=== PATIENT | female | born 1960 | race Caucasian/White ===

== ENCOUNTER 2018-07-28 17:20 | Inpatient (IN) | payer OTHER ==
[2018-07-28] MEDS ORDERED: SODIUM CHLORIDE 0.9% 1,000 ML IV STA (17:47)
[2018-07-28] MEDS ORDERED: MORPHINE SULFATE 4 MG/ML SYRINGE IV STA (17:47)
--- NOTE | 2018-07-28 17:52 | ED ---
Abdominal Pain HPI - General Chief Complaint: Abdominal Pain Stated Complaint: LUMP ON STOMACH, ABDOMINAL PAIN Time Seen by Provider: 07/28/18 17:29 Source: patient, RN notes reviewed, old records reviewed Mode of arrival: ambulatory Limitations: no limitations - History of Present Illness Initial Comments: This is a 58-year-old female the ER for evaluation of anterior bowel pain severe. Patient does have history of gynecological surgery, no other history of surgery is also had C-sections and hysterectomy. Patient denies fever, states she developed some anterior abdominal pain positive has been on and off for a month or so ago was worse today. Her bowel movements have an irregular no difficulty with urination no fevers. No nausea vomiting currently. MD Complaint: abdominal pain (Anterior) -: month(s) Location: periumbilical, suprapubic Radiation: suprapubic Migration to: epigastric Severity: moderate Severity scale (1-10): 4 Quality: aching Consistency: constant Improves With: nothing Worsens With: nothing Context: recent surgery/procedure (No surgeries within the last 2 years) Associated Symptoms: denies other symptoms Treatments Prior to Arrival: other - Related Data Home Medications Medication Instructions Recorded Confirmed ALPRAZolam [Xanax] 0.5 mg PO BID PRN 07/28/18 07/28/18 Gabapentin [Neurontin] 400 mg PO TID PRN 07/28/18 07/28/18 HYDROcodone/APAP 5-325MG [[place] 1 tab PO Q6HR PRN 07/28/18 07/28/18 5-325] Ibuprofen [Motrin] 400 mg PO Q6HR PRN 07/28/18 07/28/18 Allergies Allergy/AdvReac Type Severity Reaction Status Date / Time No Known Allergies Allergy Verified 07/28/18 17:40 Review of Systems ROS Statement: Those systems with pertinent positive or pertinent negative responses have been documented in the HPI. ROS Other: All systems not noted in ROS Statement are negative. Past Medical History Past Medical History: No Reported History History of Any Multi-Drug Resistant Organisms: None Reported Past Surgical History: Appendectomy, Section, Hysterectomy Past Psychological History: No Psychological Hx Reported Smoking Status: Never smoker Past Alcohol Use History: None Reported Past Drug Use History: None Reported General Exam Limitations: no limitations General appearance: alert, in no apparent distress, obese Head exam: Present: atraumatic, normocephalic, normal inspection Eye exam: Present: normal appearance, PERRL, EOMI. Absent: scleral icterus, conjunctival injection, periorbital swelling ENT exam: Present: normal exam, mucous membranes moist Neck exam: Present: normal inspection. Absent: tenderness, meningismus, lymphadenopathy Respiratory exam: Present: normal lung sounds bilaterally. Absent: respiratory distress, wheezes, rales, rhonchi, stridor Cardiovascular Exam: Present: regular rate, normal rhythm, normal heart sounds. Absent: systolic murmur, diastolic murmur, rubs, gallop, clicks GI/Abdominal exam: Present: soft, normal bowel sounds. Absent: distended, tenderness, guarding, rebound, rigid Extremities exam: Present: normal inspection, full ROM, normal capillary refill. Absent: tenderness, pedal edema, joint swelling, calf tenderness Back exam: Present: normal inspection Neurological exam: Present: alert, oriented X3, CN II-XII intact Psychiatric exam: Present: normal affect, normal mood Skin exam: Present: warm, dry, intact, normal color. Absent: rash Course Vital Signs 07/28/18 17:24 Temperature 97.7 F Pulse Rate 65 Respiratory 16 Rate Blood Pressure 117/80 O2 Sat by Pulse 98 Oximetry - Reevaluation(s) Reevaluation #1: 07/28/18 18:44 Medical record is reviewed 07/28/18 18:44 Patient has adequate pain control Reevaluation #2: 07/28/18 21:30 pain is controlled Medical Decision Making - Medical Decision Making 58 female the ER for evasive about pain, positive abdominal will admit for surgical evaluation and treatment - Lab Data Result diagrams: 07/28/18 18:23 07/28/18 18:23 Lab Results 07/28/18 07/28/18 07/28/18 Range/Units 18:23 18:23 18:23 WBC 10.0 (3.8-10.6) k/uL RBC 5.18 (3.80-5.40) m/uL Hgb 13.9 (11.4-16.0) gm/dL Hct 42.5 (34.0-46.0) % MCV 82.0 (80.0-100.0) fL MCH 26.9 (25.0-35.0) pg MCHC 32.8 (31.0-37.0) g/dL RDW 14.2 (11.5-15.5) % Plt Count 321 (150-450) k/uL Neutrophils % 52 % Lymphocytes % 39 % Monocytes % 4 % Eosinophils % 3 % Basophils % 1 % Neutrophils # 5.2 (1.3-7.7) k/uL Lymphocytes # 3.9 (1.0-4.8) k/uL Monocytes # 0.4 (0-1.0) k/uL Eosinophils # 0.3 (0-0.7) k/uL Basophils # 0.1 (0-0.2) k/uL Sodium 141 (137-145) mmol/L Potassium 4.3 (3.5-5.1) mmol/L Chloride 105 (98-107) mmol/L Carbon Dioxide 28 (22-30) mmol/L Anion Gap 8 mmol/L BUN 27 H (7-17) mg/dL Creatinine 0.80 (0.52-1.04) mg/dL Est GFR (CKD-EPI)AfAm >90 (>60 ml/min/1.73 sqM) Est GFR (CKD-EPI)NonAf 82 (>60 ml/min/1.73 sqM) Glucose 101 H (74-99) mg/dL Plasma Lactic Acid Jose [place] 1.0 (0.7-2.0) mmol/L Calcium 9.5 (8.4-10.2) mg/dL Total Bilirubin 0.2 (0.2-1.3) mg/dL AST 21 (14-36) U/L ALT 20 (9-52) U/L Alkaline Phosphatase 87 (38-126) U/L Total Protein 7.5 (6.3-8.2) g/dL Albumin 4.1 (3.5-5.0) g/dL Amylase 81 (30-110) U/L Lipase 231 (23-300) U/L - Radiology Data Radiology results: report reviewed (CT abdomen and pelvis is positive for abdominal hernia anterior incarceration), image reviewed Disposition Clinical Impression: Abdominal pain, Hernia of anterior abdominal wall Disposition: ADMITTED IP TO THIS [facility] Condition: Good Is patient prescribed a controlled substance at d/c from ED?: No Referrals: Andres Barbosa MD [Primary Care Provider] - 1-2 days
[2018-07-28] MEDS ORDERED: LORazepam 2 MG/ML INJ IV STA (18:30)
[2018-07-28 18:41] LABS: Basophils # (A) 0.1 k/uL (0-0.2); Basophils % (A) 1 %; Eosinophils # (A) 0.3 k/uL (0-0.7); Eosinophils % (A) 3 %; HCT 42.5 % (34.0-46.0); HGB 13.9 gm/dL (11.4-16.0); Lymphocytes # (A) 3.9 k/uL (1.0-4.8); Lymphocytes % (A) 39 %; MCH 26.9 pg (25.0-35.0); MCHC 32.8 g/dL (31.0-37.0); Mean Platelet Volume 7.3; Monocytes # (A) 0.4 k/uL (0-1.0); Monocytes % (A) 4 %; Neutrophils # (A) 5.2 k/uL (1.3-7.7); Neutrophils % (A) 52 %; Platelet Count 321 k/uL (150-450); RBC 5.18 m/uL (3.80-5.40); RDW 14.2 % (11.5-15.5)
[2018-07-28 19:00] LABS: ALT 20 U/L (9-52); AST 21 U/L (14-36); Albumin 4.1 g/dL (3.5-5.0); Alkaline Phosphatase 87 U/L (38-126); Amylase 81 U/L (30-110); Anion Gap 8 mmol/L; Blood Urea Nitrogen 27 mg/dL (7-17); Calcium 9.5 mg/dL (8.4-10.2); Carbon Dioxide 28 mmol/L (22-30); Chloride 105 mmol/L (98-107); Glucose 101 mg/dL (74-99); Lipase 231 U/L (23-300); Potassium 4.3 mmol/L (3.5-5.1); Sodium 141 mmol/L (137-145); Total Bilirubin 0.2 mg/dL (0.2-1.3); Total Protein 7.5 g/dL (6.3-8.2)
--- NOTE | 2018-07-28 20:30 | CT ---
EXAMINATION TYPE: CT abdomen pelvis wo con DATE OF EXAM: 07/28/2018 COMPARISON: HISTORY: RLQ pain CT DLP: 938.9 mGycm Automated exposure control for dose reduction was used. TECHNIQUE: Helical acquisition of images was performed from the lung bases through the pelvis. FINDINGS: LUNG BASES: No significant abnormality is appreciated. LIVER/GB: No significant abnormality is appreciated. PANCREAS: No significant abnormality is seen. SPLEEN: No significant abnormality is seen. ADRENALS: No significant abnormality is seen. KIDNEYS: No significant abnormality is seen. PERITONEAL CAVITY: There is no pneumoperitoneum or fluid within the peritoneal cavity. RETROPERITONEAL ADENOPATHY: None visualized REPRODUCTIVE ORGANS: No significant abnormality is seen URINARY BLADDER: No significant abnormality is seen. PELVIC ADENOPATHY: None visualized. OSSEOUS STRUCTURES: No significant abnormality is seen. BOWEL: No significant abnormality is seen. ANTERIOR ABDOMINAL WALL: There is a complex adipose-soft tissue mass extending from an intraabdominal position anteriorly into the subcutaneous position. This mass courses through the anterior abdominal wall at the midline through a 3 cm diameter opening. The greatest dimensions of the mass are 12 cm A P by 10 cm transverse by 7 cm craniocaudal. The soft tissue component is nodular and groundglass. The mass appears to originate from the lower omentum. Differential considerations include entities such as neoplasm, complex hematoma, complex fat necrosis. There are no associated bowel loops. No associat ed adenopathy. IMPRESSION: LOWER OMENTAL COMPLEX FATTY MASS.
[2018-07-28] MEDS ORDERED: MORPHINE SULFATE 4 MG/ML SYRINGE IVP PRN (21:31)
--- NOTE | 2018-07-29 08:02 | P.PN ---
Progress Note - Text Progress Note Date: 07/29/18 The patient will be scheduled for repair of her incarcerated ventral hernia today.
[2018-07-29] MEDS ORDERED: MORPHINE SULFATE 2 MG/ML SYRINGE IVP PRN (10:33)
[2018-07-29] MEDS: PANTOPRAZOLE 40 MG/10 ML VIAL IVP SCH (10:49)
[2018-07-29] MEDS: LACTATED RINGERS 1,000 ML IV SCH ×2 (10:49→16:21)
--- NOTE | 2018-07-29 10:49 | P.GSHP ---
History of Present Illness H&P Date: 07/29/18 Chief Complaint: Abdominal pain 58-year-old female presented on the day of admission to the emergency room to be evaluated for chief complaint of developing intractable lower abdominal pain worse with activity onset several months. Stated there was no nausea no vomiting. No fever chills. 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 Patient states does have chronic pain does take [place] when necessary as needed in the emergency room a CAT scan of the abdomen to evaluate the abdominal pain without contrast was obtained. Reviewing the report lower omental complex fatty mass. Report indicates the mass courses through the anterior abdominal wall at the mid-level through a 3 cm diameter opening the greatest dimension of the mass are 12 x 10 transverse. Differential diagnosis consider including entities such as a neoplasm, complex hematoma, or complex fat necrosis White count on admission 10 hemoglobin 13.9 electrolyte within normal limits alkaline phosphate 87 Patient will be scheduled today for an open repair of incarcerated ventral hernia Past surgical history appendectomy open as a teenager greater than 40 years ago , 2 C-sections, hysterectomy. Past medical history neuropathy chronic pain - Review of Systems Comment: Essentially unremarkable except as mentioned in the present illness Past Medical History Past Medical History: No Reported History Additional Past Medical History / Comment(s): p History of Any Multi-Drug Resistant Organisms: None Reported Past Surgical History: Appendectomy, Section, Hysterectomy Additional Past Surgical History / Comment(s): past cocaine abuse Past Anesthesia/Blood Transfusion Reactions: No Reported Reaction Past Psychological History: Anxiety Smoking Status: Never smoker Past Alcohol Use History: None Reported Past Drug Use History: None Reported - Past Family History Mother Family Medical History: Congestive Heart Failure (CHF), Diabetes Mellitus, Seizure Disorder Medications and Allergies Home Medications Medication Instructions Recorded Confirmed Type ALPRAZolam [Xanax] 0.5 mg PO BID PRN 07/28/18 07/28/18 History Gabapentin [Neurontin] 400 mg PO TID PRN 07/28/18 07/28/18 History HYDROcodone/APAP 5-325MG [[place] 1 tab PO Q6HR PRN 07/28/18 07/28/18 History 5-325] Ibuprofen [Motrin] 400 mg PO Q6HR PRN 07/28/18 07/28/18 History Allergies Allergy/AdvReac Type Severity Reaction Status Date / Time No Known Allergies Allergy Verified 07/28/18 17:40 Surgical - Exam Vital Signs Temp Pulse Resp BP Pulse Ox 97.7 F 65 16 117/80 98 07/28/18 17:24 07/28/18 17:24 07/28/18 17:24 07/28/18 17:24 07/28/18 17:24 GENERAL APPEARANCE: 58-year-old female patient is alert, oriented, states with movement has been experiencing pain to the lower abdomen VITAL SIGNS: Reviewed HEENT: Head is normocephalic and atraumatic. Pupils are equal and reactive. The nares are patent. Oropharynx is clear without lesions. NECK: Supple without lymphadenopathy. Traches midline. HEART: S1, S2. Regular rate and rhythm. no murmur denying chest pain LUNGS: No crackles or wheezes are heard. adequate air movement bilaterally sets room air 96% ABDOMEN: Soft, not able to palpate abdominal mass positive tenderness with palpitation to the lower abdominal wall suprapubic area nondistended with good bowel sounds. No peritoneal signs. No palpable organomegaly or masses. states had a bowel movement this morning EXTREMITIES: Normal skin color and turgor. No cyanosis, rash, ulceration, clubbing or edema. Radial pedal pulses are 2/4 bilaterally. NEUROLOGICAL: No focal deficits. Strength and sensation are grossly intact. Results - Labs 07/28/18 18:23 07/28/18 18:23 Abnormal Lab Results - Last 24 Hours (Table) 07/28/18 Range/Units 18:23 BUN 27 H (7-17) mg/dL Glucose 101 H (74-99) mg/dL Diabetes panel 07/28/18 Range/Units 18:23 Sodium 141 (137-145) mmol/L Potassium 4.3 (3.5-5.1) mmol/L Chloride 105 (98-107) mmol/L Carbon Dioxide 28 (22-30) mmol/L BUN 27 H (7-17) mg/dL Creatinine 0.80 (0.52-1.04) mg/dL Glucose 101 H (74-99) mg/dL Calcium 9.5 (8.4-10.2) mg/dL AST 21 (14-36) U/L ALT 20 (9-52) U/L Alkaline Phosphatase 87 (38-126) U/L Total Protein 7.5 (6.3-8.2) g/dL Albumin 4.1 (3.5-5.0) g/dL Calcium panel 07/28/18 Range/Units 18:23 Calcium 9.5 (8.4-10.2) mg/dL Albumin 4.1 (3.5-5.0) g/dL Pituitary panel 07/28/18 Range/Units 18:23 Sodium 141 (137-145) mmol/L Potassium 4.3 (3.5-5.1) mmol/L Chloride 105 (98-107) mmol/L Carbon Dioxide 28 (22-30) mmol/L BUN 27 H (7-17) mg/dL Creatinine 0.80 (0.52-1.04) mg/dL Glucose 101 H (74-99) mg/dL Calcium 9.5 (8.4-10.2) mg/dL Adrenal panel 07/28/18 Range/Units 18:23 Sodium 141 (137-145) mmol/L Potassium 4.3 (3.5-5.1) mmol/L Chloride 105 (98-107) mmol/L Carbon Dioxide 28 (22-30) mmol/L BUN 27 H (7-17) mg/dL Creatinine 0.80 (0.52-1.04) mg/dL Glucose 101 H (74-99) mg/dL Calcium 9.5 (8.4-10.2) mg/dL Total Bilirubin 0.2 (0.2-1.3) mg/dL AST 21 (14-36) U/L ALT 20 (9-52) U/L Alkaline Phosphatase 87 (38-126) U/L Total Protein 7.5 (6.3-8.2) g/dL Albumin 4.1 (3.5-5.0) g/dL Assessment and Plan Assessment: Impression Present on admission persistent lower abdominal pain suspect due to incarcerated ventral hernia as evident on a CAT scan of the abdomen and pelvis Obesity BMI 41 Chronic pain Present on admission lower abdominal pain onset for the past several months increased in severity suspect due to incarcerated ventral hernia Plan Pain control Scheduled today for repair incarcerated ventral hernia possible open DVT and GI prophylaxis Keep nothing by mouth for planned surgery IV fluid for hydration Further surgical recommendations pending clinical course The above impression and plan of care have been discussed and directed by signing physician. Lynette Harris nurse practitioner acting as scribe for signing physician.
[2018-07-29] MEDS ORDERED: ePHEDrine SULFATE/0.9% NACL/PF 50 MG/5 ML SYRINGE IV ONE (10:59)
[2018-07-29] MEDS ORDERED: NEOSTIGMINE 1 MG/ML 10 ML VIAL ONE (10:59)
[2018-07-29] MEDS ORDERED: GLYCOPYRROLATE 0.2 MG/ML 2 ML VIAL ONE (10:59)
[2018-07-29] MEDS ORDERED: PHENYLEPHRINE-0.9% NACL SYG 1 MG/10 ML SYRINGE ONE (10:59)
[2018-07-29] MEDS ORDERED: PROPOFOL 10 MG/ML 20 ML VIAL IV ONE (10:59)
[2018-07-29] MEDS ORDERED: SUCCINYLCHOLINE CHLORIDE 100 MG/5 ML SYR IV ONE (10:59)
[2018-07-29] MEDS ORDERED: fentaNYL (PF) 50 MCG/ML 2 ML AMP ONE (10:59)
[2018-07-29] MEDS ORDERED: VECURONIUM 10 MG VIAL IV ONE (10:59)
[2018-07-29] MEDS ORDERED: MIDAZOLAM 2 MG/2 ML VIAL ONE (10:59)
[2018-07-29] MEDS ORDERED: LIDOCAINE 1% INJ 10MG/ML (20 ML MDV) ONE (10:59)
[2018-07-29] MEDS ORDERED: KETOROLAC 30 MG/ML 1 ML VIAL ONE (10:59)
[2018-07-29] MEDS: HEPARIN SODIUM,PORCINE 5,000 UNIT/ML 1 ML VIAL SQ SCH ×2 (15:05→16:28)
[2018-07-29] MEDS ORDERED: IV FLUID CONTINUATION 1,000 ML IV ONE (15:51)
[2018-07-29] MEDS: ONDANSETRON 4 MG/2 ML VIAL IVP ONE ×2 (16:04→18:25)
[2018-07-29] MEDS ORDERED: ceFAZolin IN SWFI 2 GM/20 ML SYRINGE IVP ONE (16:35)
[2018-07-29] MEDS ORDERED: ONDANSETRON 4 MG/2 ML VIAL IVP PRN (17:55)
[2018-07-29] MEDS ORDERED: traMADol 50 MG TAB PO PRN (17:55)
[2018-07-29] MEDS ORDERED: ACETAMINOPHEN TAB 325 MG TAB PO PRN (17:55)
[2018-07-29] MEDS ORDERED: METOCLOPRAMIDE 5 MG/ML 2 ML VIAL IVP PRN (17:55)
[2018-07-29] MEDS ORDERED: LACTATED RINGERS 1,000 ML IV ONE ×2 (17:55→17:59)
[2018-07-29] MEDS ORDERED: NALOXONE 0.4 MG/ML 1 ML VIAL IV PRN (17:55)
--- NOTE | 2018-07-29 18:01 | P.OP ---
Date of Procedure: 07/29/18 Preoperative Diagnosis: Incarcerated incisional hernia Postoperative Diagnosis: Incarcerated incisional hernia Procedure(s) Performed: Open repair of incarcerated incisional hernia Partial omentectomy Anesthesia: NITHIN Surgeon: Anuj Mckenzie Estimated Blood Loss (ml): 10 Pathology: other (Omentum) Condition: stable Disposition: PACU Description of Procedure: The patient's placed on the operative table in the supine position. She received general anesthesia. Her abdomen was prepped and draped in usual sterile fashion. A low midline incision was made and then using a large cautery the subcutaneous tissue divided. The patient had an incarcerated incisional hernia and there was incarcerated omentum within the hernia sac. Hernia sac was then opened. And then the neck of the hernia was opened using cautery. The incarcerated omentum was then transected using the Enseal device. The fascial defect was repaired using 0 Ethibond suture. A KATIE drains placed in subcutaneous space. All Vicryl was used to close the space. The skin was closed shahram. A previena wound system was placed on top of the skin incision. Patient tolerated procedure well was sent to recovery in stable condition.
[2018-07-29] MEDS: HYDROmorphone 1 MG/ML 1 ML SYRINGE IVP ONE ×4 (18:26→18:42)
[2018-07-29] MEDS: KETOROLAC 30 MG/ML 1 ML VIAL IVP SCH ×2 (20:39→20:50)
[2018-07-29] MEDS: DOCUSATE 100 MG CAP PO SCH (21:45)
[2018-07-30] MEDS: HYDROcodone/APAP 5-325MG 1 EACH TAB PO PRN ×3 (03:26→23:48)
[2018-07-30] MEDS: KETOROLAC 30 MG/ML 1 ML VIAL IVP SCH ×4 (06:10→20:40)
[2018-07-30] MEDS: PANTOPRAZOLE 40 MG/10 ML VIAL IVP SCH (08:34)
[2018-07-30] MEDS: DOCUSATE 100 MG CAP PO SCH ×2 (08:34→20:40)
[2018-07-30] MEDS: ENOXAPARIN 40 MG/0.4 ML SYRINGE SQ SCH (08:34)
[2018-07-30] MEDS ORDERED: GABAPENTIN 400 MG CAP PO PRN (08:43)
[2018-07-30] MEDS ORDERED: ALPRAZolam 0.5 MG TAB PO PRN (08:43)
--- NOTE | 2018-07-30 08:46 | P.CONS ---
History of Present Illness - Reason for Consult Consult date: 07/30/18 - Chief Complaint Abdominal pain. - History of Present Illness The patient is here postoperatively for hernia repair. She has not underlying history of opiate dependence with chronic DJD. The patient seems stable today. We are essentially consult assistance with medical management. She is under appropriate postop protocol. No sniffing nausea, vomiting stated. Review of Systems Constitutional: Denies chills, Denies fever Eyes: denies blurred vision, denies pain Ears, nose, mouth and throat: Denies headache, Denies sore throat Cardiovascular: Reports as per HPI Gastrointestinal: Reports abdominal pain, Denies diarrhea, Denies nausea, Denies vomiting Past Medical History Past Medical History: No Reported History Additional Past Medical History / Comment(s): p History of Any Multi-Drug Resistant Organisms: None Reported Past Surgical History: Appendectomy, Section, Hysterectomy Additional Past Surgical History / Comment(s): past cocaine abuse Past Anesthesia/Blood Transfusion Reactions: No Reported Reaction Past Psychological History: Anxiety Smoking Status: Never smoker Past Alcohol Use History: None Reported Past Drug Use History: None Reported - Past Family History Mother Family Medical History: Congestive Heart Failure (CHF), Diabetes Mellitus, Seizure Disorder Medications and Allergies Home Medications Medication Instructions Recorded Confirmed Type ALPRAZolam [Xanax] 0.5 mg PO BID PRN 07/28/18 07/28/18 History Gabapentin [Neurontin] 400 mg PO TID PRN 07/28/18 07/28/18 History HYDROcodone/APAP 5-325MG [[place] 1 tab PO Q6HR PRN 07/28/18 07/28/18 History 5-325] Ibuprofen [Motrin] 400 mg PO Q6HR PRN 07/28/18 07/28/18 History Allergies Allergy/AdvReac Type Severity Reaction Status Date / Time No Known Allergies Allergy Verified 07/28/18 17:40 Physical Exam Vitals: Vital Signs Temp Pulse Pulse Resp BP BP Pulse Ox 07/30/18 05:57 97.5 F L 61 16 106/61 96 07/29/18 23:00 97.6 F 62 16 119/72 97 07/29/18 21:12 54 L 124/79 91 L 07/29/18 20:42 63 129/81 94 L 07/29/18 20:13 71 125/67 94 L 07/29/18 19:57 57 L 133/87 95 07/29/18 19:43 56 L 125/69 94 L 07/29/18 19:27 55 L 127/85 94 L 07/29/18 19:12 97.8 F 50 L 11 L 114/74 95 07/29/18 18:45 62 16 117/71 97 07/29/18 18:30 69 18 130/84 97 07/29/18 18:15 75 18 137/87 97 07/29/18 18:11 97.6 F 68 18 122/65 97 07/29/18 15:56 98.7 F 56 L 18 112/63 96 07/29/18 15:00 97.4 F L 57 L 16 125/72 95 Intake and Output 07/29/18 07/30/18 07/30/18 22:59 06:59 14:59 Intake Total 700 Output Total 50 Balance 650 Intake: IV 700 Output: Estimated Blood Loss 50 Other: Voiding Method Toilet # Voids 2 - Constitutional General appearance: obese - EENT Eyes: EOMI - Neck Neck: no lymphadenopathy - Respiratory Respiratory: bilateral: CTA - Cardiovascular Rhythm: regular Heart sounds: normal: S1, S2 Abnormal Heart Sounds: no S3 Gallop - Gastrointestinal General gastrointestinal: soft, no tenderness - Neurologic Neurologic: CNII-XII intact - Psychiatric Psychiatric: A&O x's 3 Results CBC & Chem 7: 07/28/18 18:23 07/28/18 18:23 Assessment and Plan (1) Hernia of anterior abdominal wall Current Visit: Yes Status: Acute Code(s): K43.9 - VENTRAL HERNIA WITHOUT OBSTRUCTION OR GANGRENE SNOMED Code(s): 959992603 Plan: Slowly increase by mouth intake with medications. Check CBC and CMP in a.m. Dr. Dykes's group will be covering for the weekend starting tomorrow. Anticipate discharge in next 24-48 hours. Time with Patient: Greater than 30
[2018-07-30 09:04] LABS: Basophils % (A) 0 %; Eosinophils # (A) 0.1 k/uL (0-0.7); Eosinophils % (A) 1 %; HCT 39.4 % (34.0-46.0); HGB 12.4 gm/dL (11.4-16.0); Lymphocytes # (A) 2.8 k/uL (1.0-4.8); Lymphocytes % (A) 26 %; MCH 26.2 pg (25.0-35.0); MCHC 31.5 g/dL (31.0-37.0); MCV 83.2 fL (80.0-100.0); Mean Platelet Volume 7.2; Monocytes # (A) 0.5 k/uL (0-1.0); Monocytes % (A) 5 %; Neutrophils # (A) 7.4 k/uL (1.3-7.7); Neutrophils % (A) 68 %; Platelet Count 298 k/uL (150-450); RBC 4.74 m/uL (3.80-5.40); RDW 14.2 % (11.5-15.5); WBC 10.9 k/uL (3.8-10.6)
[2018-07-30 09:13] LABS: Albumin 3.4 g/dL (3.5-5.0); Calcium 8.6 mg/dL (8.4-10.2); Total Bilirubin 0.6 mg/dL (0.2-1.3); Total Protein 6.4 g/dL (6.3-8.2)
--- NOTE | 2018-07-30 10:58 | P.PN ---
Subjective Progress Note Date: 07/30/18 58-year-old seen up ambulating in the hallway. Patient states is passing gas no stool. Pain medication effective for pain control. States is tolerating a diet with no nausea no vomiting. Abdominal binder in place. KATIE drain moderate amount of bloody drainage in the bulb. a prevena wound system in place. Postop July 29 open repair of incarcerated incisional hernia, partial omentectomy Objective - Vital Signs Vital signs: Vital Signs Temp 97.5 F L 07/30/18 05:57 Pulse 61 07/30/18 05:57 Resp 16 07/30/18 05:57 BP 106/61 07/30/18 05:57 Pulse Ox 96 07/30/18 05:57 Intake & Output 07/29/18 07/30/18 07/30/18 18:59 06:59 18:59 Intake Total 700 Output Total 50 Balance 650 Intake: IV 700 Output: Estimated Blood Loss 50 Other: Voiding Method Toilet # Voids 1 2 # Bowel Movements 1 - Exam Physical exam 58-year-old female ambulating in the hallway reports no nausea no vomiting no dizziness lightheadedness no chest pain or shortness of breath Lungs adequate air movement bilaterally on room air Heart S1-S2 audible regular Abdomen abdominal binder in place. Surgical tenderness appropriate. Passing gas no stool urinating no difficulty KATIE drain in place serous bloody drainage noted prevena wound system in place nondistended Extremities no edema - Labs CBC & Chem 7: 07/30/18 07:57 07/30/18 07:57 Labs: Abnormal Lab Results - Last 24 Hours (Table) 07/30/18 07/30/18 Range/Units 07:57 07:57 WBC 10.9 H (3.8-10.6) k/uL BUN 21 H (7-17) mg/dL Albumin 3.4 L (3.5-5.0) g/dL Assessment and Plan Assessment: Impression Present on admission persistent lower abdominal pain suspect due to incarcerated ventral hernia as evident on a CAT scan of the abdomen and pelvis Obesity BMI 41 Chronic pain Present on admission lower abdominal pain onset for the past several months increased in severity suspect due to incarcerated ventral hernia Status post July 29 open repair of incarcerated incisional hernia, partial omentectomy for incarcerated incisional hernia Plan Pain control Continue postop surgical care DVT and GI prophylaxis IV fluid for hydration The above impression and plan of care have been discussed and directed by signing physician. Lynette Harris nurse practitioner acting as scribe for signing physician.
[2018-07-31] MEDS: KETOROLAC 30 MG/ML 1 ML VIAL IVP SCH (05:46)
[2018-07-31 06:39] VITALS: BP 104/50; PULSE 48; RESP 15; TEMP 97.6
[2018-07-31] MEDS: PANTOPRAZOLE 40 MG/10 ML VIAL IVP SCH (09:31)
[2018-07-31] MEDS: DOCUSATE 100 MG CAP PO SCH (09:32)
[2018-07-31] MEDS: ENOXAPARIN 40 MG/0.4 ML SYRINGE SQ SCH (09:32)
[2018-07-31] MEDS: HYDROcodone/APAP 5-325MG 1 EACH TAB PO PRN (09:38)
--- NOTE | 2018-07-31 11:00 | P.DS ---
Providers Date of admission: 07/30/18 14:16 Expected date of discharge: 07/31/18 Attending physician: Anuj Mckenzie Consults: 07/29/18 10:50 Consult Physician Urgent Consulting Provider: Andres Barbosa Consult Reason/Comments: Medical management Do you want consulting provider notified?: Yes Primary care physician: Andres Barbosa Hospital Course: 58-year-old female presented to the emergency room for chief complaint of developing intractable lower abdominal pain worse with activity onset several months prior. Patient stated that she felt nauseated did not vomit no fever chills no change in bowel habits. Patient does have chronic pain and does take [place] as needed at home for chronic lower back pain. In the emergency room a CAT scan of the abdomen was done showed incarcerated ventral hernia. Patient underwent an July 29 an open repair of incarcerated ventral hernia. Provera wound system was placed KATIE drain placed patient did receive instructions on the care of the KATIE drain as well as the prevena wound system on the day of discharge patient was up ambulatory on the inner dressing was dry abdomen soft passing gas no nausea no vomiting pain medication effective for pain control Impression discharge diagnosis Present on admission persistent lower abdominal pain suspect due to incarcerated ventral hernia as evident on a CAT scan of the abdomen and pelvis Obesity BMI 41 Chronic pain Present on admission lower abdominal pain onset for the past several months increased in severity suspect due to incarcerated ventral hernia Status post July 29 open repair of incarcerated incisional hernia, partial omentectomy for incarcerated incisional hernia The above impression and plan of care have been discussed and directed by signing physician. Lynette Harris nurse practitioner acting as scribe for signing physician. Patient Condition at Discharge: Good Plan - Discharge Summary New Discharge Prescriptions: Continue Ibuprofen [Motrin] 400 mg PO Q6HR PRN PRN Reason: Pain HYDROcodone/APAP 5-325MG [[place] 5-325] 1 tab PO Q6HR PRN PRN Reason: Pain Gabapentin [Neurontin] 400 mg PO TID PRN PRN Reason: NERVE PAIN ALPRAZolam [Xanax] 0.5 mg PO BID PRN PRN Reason: Anxiety Discharge Medication List ALPRAZolam [Xanax] 0.5 mg PO BID PRN 07/28/18 [History] Gabapentin [Neurontin] 400 mg PO TID PRN 07/28/18 [History] HYDROcodone/APAP 5-325MG [[place] 5-325] 1 tab PO Q6HR PRN 07/28/18 [History] Ibuprofen [Motrin] 400 mg PO Q6HR PRN 07/28/18 [History] Follow up Appointment(s)/Referral(s): Andres Barbosa MD [Primary Care Provider] - 1-2 days Anuj Mckenzie MD [STAFF PHYSICIAN] - 1 Week Activity/Diet/Wound Care/Special Instructions: No tub bath for six weeks. Shower daily. Do not soak the dressings No lifting over 10 pounds for the next 2 weeks. Monitor KATIE drain and record. May use ice packs to surgical site. No driving while taking narcotic for pain. Next Friday remove prevena wound system as instructed Discharge Disposition: HOME SELF-CARE
[2018-07-31 11:19] LABS: HCT 39.9 % (34.0-46.0); HGB 13.4 gm/dL (11.4-16.0); MCH 27.9 pg (25.0-35.0); MCHC 33.7 g/dL (31.0-37.0); MCV 82.8 fL (80.0-100.0); Mean Platelet Volume 7.1; Platelet Count 294 k/uL (150-450); RBC 4.82 m/uL (3.80-5.40); RDW 14.1 % (11.5-15.5); WBC 11.4 k/uL (3.8-10.6)
[2018-07-31 11:32] LABS: ALT 20 U/L (9-52); AST 18 U/L (14-36); Albumin 3.6 g/dL (3.5-5.0); Alkaline Phosphatase 75 U/L (38-126); Anion Gap 7 mmol/L; Blood Urea Nitrogen 14 mg/dL (7-17); Calcium 8.9 mg/dL (8.4-10.2); Carbon Dioxide 26 mmol/L (22-30); Chloride 108 mmol/L (98-107); Glucose 91 mg/dL (74-99); Potassium 4.8 mmol/L (3.5-5.1); Sodium 141 mmol/L (137-145); Total Bilirubin 0.5 mg/dL (0.2-1.3); Total Protein 6.8 g/dL (6.3-8.2)
--- NOTE | 2018-07-31 20:04 | PN ---
PROGRESS NOTE I am covering for Dr. Barbosa. DATE OF SERVICE: 07/31/2018 DATE OF SERVICE: This 58-year-old woman who was admitted with hernia with anterior abdominal surgery is improving significantly. No chest pain. No palpitations. No fever. EXAM: Alert and oriented times three. Pulse 48, blood pressure 105/50, respirations 16, temperature 97.7. Pulse ox 98 percent on room air. HEENT: Conjunctivae normal. NECK: No jugular venous distention. CARDIOVASCULAR: S1, S2 muffled. RESPIRATORY: Breath sounds diminished in the bases. No rhonchi. No crackles. Abdomen soft. Status post surgery. Legs are no edema, no swelling. Central nervous system: No focal deficits. LAB STUDIES: WBC 11.4, otherwise normal ASSESSMENT: 1. Status post anterior abdominal hernia repair. 2. Sinus bradycardia, possibly. 3. History of appendectomy. 4. History of . 5. History of anxiety. RECOMMENDATIONS AND DISCUSSION: Continue current medications, management and symptomatic treatment. Otherwise, I recommend to closely follow with Dr. Barbosa in the outpatient setting. The rest of the recommendations per Surgery. Further recommendations to follow. MMODL / IJN: [id number] / MTDD
== END 2018-07-31 12:24 | disposition home or self-care (01) | DRG 354 ==
LOC: EC 17:20 → 4MS4W 22:13 → OBSVTOIN 07-30 14:16
PROVIDERS: ADMIT Surgery; ATTEND Surgery
PROC: 0DBU0ZZ Excision of Omentum, Open Approach (ICD-10-PCS; principal; 2018-07-29 07:30)
PROC: 0WQF0ZZ Repair Abdominal Wall, Open Approach (ICD-10-PCS; principal; 2018-07-29 07:30)
DX: K43.0 Incisional hernia with obstruction, without gangrene (principal); Z68.41 Body mass index [BMI] 40.0-44.9, adult; E66.9 Obesity, unspecified; G89.29 Other chronic pain; F41.9 Anxiety disorder, unspecified; R00.1 Bradycardia, unspecified; Z90.710 Acquired absence of both cervix and uterus; Z90.49 Acquired absence of other specified parts of digestive tract; Z82.49 Family history of ischemic heart disease and other diseases of the circulatory system; Z82.0 Family history of epilepsy and other diseases of the nervous system; Z83.3 Family history of diabetes mellitus
CPT/HCPCS: 36415; 74176; 80053; 82150; 83605; 83690; 85025; 85027; 88305; 96361; 96374; 96375; 99285

== ENCOUNTER 2018-11-12 06:50 | Day surgery (SDC) | payer OTHER ==
[2018-11-09 15:47] VITALS: BMI 42.9
[~2018-11-12 06:50] MED LIST: LACTATED RINGERS 1,000 ML IV SCH
[2018-11-12 07:09] VITALS: TEMP 97
[2018-11-12] MEDS ORDERED: LACTATED RINGERS 1,000 ML IV ONE ×2 (07:14)
[2018-11-12] MEDS ORDERED: LIDOCAINE 1% INJ 10MG/ML (20 ML MDV) ONE (07:38)
[2018-11-12] MEDS ORDERED: fentaNYL (PF) 50 MCG/ML 2 ML AMP ONE (07:38)
[2018-11-12] MEDS ORDERED: MIDAZOLAM 2 MG/2 ML VIAL ONE (07:38)
[2018-11-12] MEDS ORDERED: PROPOFOL 10 MG/ML 20 ML VIAL IV ONE (07:38)
--- NOTE | 2018-11-12 07:52 | P.GSHP ---
History of Present Illness H&P Date: 11/12/18 Chief Complaint: Constipation This is a 58-year-old female who presents today for colonoscopy. She's had issues with constipation. Past Medical History Past Medical History: No Reported History Additional Past Medical History / Comment(s): intermittent "hurts to have a bowel movement",stools are more loose,restless leg syndrome,hx incisional hernia History of Any Multi-Drug Resistant Organisms: None Reported Past Surgical History: Appendectomy, Section, Hysterectomy Additional Past Surgical History / Comment(s): incisional hernia repair Past Anesthesia/Blood Transfusion Reactions: No Reported Reaction Smoking Status: Never smoker - Past Family History Mother Family Medical History: Congestive Heart Failure (CHF), Diabetes Mellitus, Seizure Disorder Medications and Allergies Home Medications Medication Instructions Recorded Confirmed Type Gabapentin [Neurontin] 600 mg PO HS 07/28/18 11/09/18 History HYDROcodone/APAP 5-325MG [[place] 1 tab PO Q6HR PRN 07/28/18 11/09/18 History 5-325] Allergies Allergy/AdvReac Type Severity Reaction Status Date / Time No Known Allergies Allergy Verified 11/09/18 15:40 Surgical - Exam Vital Signs Temp Pulse Resp BP Pulse Ox 97.0 F L 66 20 137/80 95 11/12/18 07:08 11/12/18 07:08 11/12/18 07:08 11/12/18 07:08 11/12/18 07:08 - General well developed, well nourished, no distress - Eyes PERRL - ENT normal pinna - Neck no masses - Respiratory normal expansion - Cardiovascular Rhythm: regular - Abdomen Abdomen: soft, non tender Assessment and Plan Assessment: Past patient. We'll perform colonoscopy.
--- NOTE | 2018-11-12 08:04 | P.OP ---
Date of Procedure: 11/12/18 Preoperative Diagnosis: Constipation Postoperative Diagnosis: Severe diverticulosis of sigmoid and left colon Procedure(s) Performed: Colonoscopy Anesthesia: MAC Surgeon: Anuj Mckenzie Pathology: none sent Condition: stable Disposition: PACU Description of Procedure: The patient's placed on the endoscopy table in the lateral position. She received IV sedation. Digital rectal exam was performed which revealed a few internal hemorrhoids. The flexible colonoscope was then placed patient anus and passed throughout the entire colon. The ileocecal valve was visualized. The cecum, ascending and transverse colon appeared normal. There were diverticular changes noted in the left colon. In the sigmoid colon there was extensive diverticular changes with a very tortuous colon. Scope was then brought back the rectum and this appeared normal. Scope withdrawn for patient.
[2018-11-12 08:13] VITALS: RESP 18
[2018-11-12 08:43] VITALS: BP 134/82; PULSE 54
== END 2018-11-12 09:05 | disposition home or self-care (01) ==
LOC: ORWHC2ENDO 06:50
PROVIDERS: ATTEND Surgery
DX: K57.30 Diverticulosis of large intestine without perforation or abscess without bleeding (principal); K59.00 Constipation, unspecified; Q43.8 Other specified congenital malformations of intestine; K64.8 Other hemorrhoids; Z90.710 Acquired absence of both cervix and uterus; E66.01 Morbid (severe) obesity due to excess calories; Z68.41 Body mass index [BMI] 40.0-44.9, adult; Z79.899 Other long term (current) drug therapy
CPT/HCPCS: 45378; J2250; J2001; J3010; J2704

== ENCOUNTER → 2018-12-21 | Outpatient (CLI) | payer OTHER ==
[2018-12-21 17:00] LABS: HCT 42.3 % (34.0-46.0); HGB 13.8 gm/dL (11.4-16.0); MCH 26.9 pg (25.0-35.0); MCHC 32.7 g/dL (31.0-37.0); MCV 82.3 fL (80.0-100.0); Mean Platelet Volume 7.2; Platelet Count 341 k/uL (150-450); RBC 5.14 m/uL (3.80-5.40); RDW 14.1 % (11.5-15.5)
[2018-12-21 17:06] LABS: Potassium 4.6 mmol/L (3.5-5.1)
== END | disposition home or self-care (01) ==
LOC: LABPAT 16:13
PROVIDERS: ATTEND Surgery
DX: Z01.818 Encounter for other preprocedural examination (principal); Z01.812 Encounter for preprocedural laboratory examination; K57.33 Diverticulitis of large intestine without perforation or abscess with bleeding
CPT/HCPCS: 36415; 80051; 85027; 93005

== ENCOUNTER 2018-12-25 08:00 | Inpatient (IN) | payer OTHER ==
[~2018-12-25 08:00] MED LIST changes: +HEPARIN SODIUM,PORCINE 5,000 UNIT/ML 1 ML VIAL SQ ONE; -LACTATED RINGERS 1,000 ML IV SCH; +ceFAZolin IN SWFI 2 GM/20 ML SYRINGE IVP ONE; +metroNIDAZOLE-NS PMX 500 MG in SALINE 1 100ML.BAG IVPB ONE
[2018-12-25] MEDS ORDERED: LACTATED RINGERS 1,000 ML IV ONE ×2 (09:17→12:11)
[2018-12-25] MEDS ORDERED: ONDANSETRON 4 MG/2 ML VIAL IVP ONE (09:30)
[2018-12-25] MEDS ORDERED: DEXAMETHASONE SOD PHOSPHATE 10 MG/ML 1 ML VIAL IV ONE (09:31)
[2018-12-25] MEDS ORDERED: MIDAZOLAM (PF) 2 MG/2 ML VIAL IVP ONE (09:34)
[2018-12-25] MEDS ORDERED: fentaNYL (PF) 50 MCG/ML 2 ML AMP IVP ONE (09:35)
[2018-12-25] MEDS ORDERED: NALOXONE 0.4 MG/ML 1 ML VIAL IV PRN ×2 (09:55→11:49)
--- NOTE | 2018-12-25 10:29 | P.GSHP ---
History of Present Illness H&P Date: 12/25/18 Chief Complaint: Diverticulitis This a 58-year-old female presents today for low anterior section. Patient has a long-standing problems of diverticulitis. Patient's aware the risks of surgery including possible colostomy and anastomotic dehiscence. Past Medical History Past Medical History: No Reported History Additional Past Medical History / Comment(s): intermittent "hurts to have a bowel movement",stools are more loose,restless leg syndrome,hx incisional hernia, diverticulitis History of Any Multi-Drug Resistant Organisms: None Reported Past Surgical History: Appendectomy, Section, Hysterectomy Additional Past Surgical History / Comment(s): incisional hernia repair Past Anesthesia/Blood Transfusion Reactions: No Reported Reaction Smoking Status: Never smoker - Past Family History Mother Family Medical History: Congestive Heart Failure (CHF), Diabetes Mellitus, Seizure Disorder Father Family Medical History: COPD Additional Family Medical History / Comment(s): diverticulitis Medications and Allergies Home Medications Medication Instructions Recorded Confirmed Type Gabapentin [Neurontin] 600 mg PO HS 07/28/18 12/25/18 History HYDROcodone/APAP 5-325MG [[place] 1 tab PO Q6HR PRN 07/28/18 12/25/18 History 5-325] Ibuprofen [Motrin] 400 mg PO DAILY PRN 12/22/18 12/25/18 History Allergies Allergy/AdvReac Type Severity Reaction Status Date / Time acetaminophen Allergy Nausea & Verified 12/25/18 09:06 [From Darvocet-N] Vomiting propoxyphene Allergy Nausea & Verified 12/25/18 09:06 [From Darvocet-N] Vomiting Surgical - Exam Vital Signs Temp Pulse Resp BP Pulse Ox 98.2 F 65 16 144/71 97 12/25/18 09:11 12/25/18 09:11 12/25/18 09:11 12/25/18 09:11 12/25/18 09:11 - General well developed, well nourished, no distress - Eyes PERRL - ENT normal pinna - Neck no masses - Respiratory normal expansion - Cardiovascular Rhythm: regular - Abdomen Chronic left lower quadrant pain Abdomen: soft, non tender Assessment and Plan Assessment: Diverticulitis. We'll perform a low anterior resection
[2018-12-25] MEDS ORDERED: ROCURONIUM BROMIDE 10 MG/ML 10 ML VIAL IV ONE (11:05)
[2018-12-25] MEDS ORDERED: NEOSTIGMINE 1 MG/ML 10 ML VIAL ONE (11:05)
[2018-12-25] MEDS ORDERED: GLYCOPYRROLATE 0.2 MG/ML 2 ML VIAL ONE (11:05)
[2018-12-25] MEDS ORDERED: SUCCINYLCHOLINE CHLORIDE 100 MG/5 ML SYR IV ONE (11:05)
[2018-12-25] MEDS ORDERED: MORPHINE SULFATE 10 MG/ML SYRINGE ONE (11:05)
[2018-12-25] MEDS ORDERED: MIDAZOLAM 2 MG/2 ML VIAL ONE (11:05)
[2018-12-25] MEDS ORDERED: PROPOFOL 10 MG/ML 20 ML VIAL IV ONE (11:05)
[2018-12-25] MEDS ORDERED: fentaNYL (PF) 50 MCG/ML 2 ML AMP ONE (11:05)
[2018-12-25] MEDS ORDERED: LIDOCAINE 1% INJ 10MG/ML (20 ML MDV) ONE (11:05)
[2018-12-25] MEDS ORDERED: diphenhydrAMINE 50 MG/ML 1 ML VIAL IVP PRN (11:49)
[2018-12-25] MEDS ORDERED: ONDANSETRON 4 MG/2 ML VIAL IVP PRN ×2 (11:49→13:25)
[2018-12-25] MEDS ORDERED: ROPIVACAINE 250 MG, HYDROMORPHONE (PF) 5 MG in SODIUM CHLORIDE 0.9% 200 ML EPIDURAL PRN (11:49)
[2018-12-25] MEDS ORDERED: BENZOCAINE/MENTHOL LOZENG 1 EACH LOZENGE MUCOUS MEM PRN (13:25)
[2018-12-25] MEDS ORDERED: METOCLOPRAMIDE 5 MG/ML 2 ML VIAL IVP PRN (13:25)
[2018-12-25] MEDS ORDERED: HYDROmorphone 1 MG/ML 1 ML SYRINGE IVP PRN (13:25)
--- NOTE | 2018-12-25 13:25 | P.OP ---
Date of Procedure: 12/25/18 Preoperative Diagnosis: Diverticulitis Postoperative Diagnosis: Diverticulitis Incisional hernia Procedure(s) Performed: Low anterior section Protective ileostomy Anesthesia: NITHIN Surgeon: Anuj Mckenzie Estimated Blood Loss (ml): 25 Pathology: other (Sigmoid colon) Condition: stable Disposition: PACU Description of Procedure: The patient's placed in the operative table in the supine position. She received general anesthesia. She was then placed in dorsal lithotomy position. Her abdomen and perineum were prepped and draped in usual sterile fashion. The abdomen was entered through a low midline Incision. The had a previous low midline scar. The abdominal wall was divided using left cautery. There was a incisional hernia. The Book[place] tract with wound. The left colon and; exam. There appeared to be evidence of diverticulitis of the sigmoid colon. The sigmoid colon was reflected medially. In the white line of Toldt was divided. The area inflammation. Extended onto the rectum. A window in the mesentery was made in the distal descending colon. And then an enterotomy was made distal to this and then the anvil for the 25 mm EEA stapler was placed to the colon. The enterotomy was then closed with 3-0 silk suture. The colon was then stapled with the MAURILIO stapler and divided. The mesentery of the colon was divided using the Enseal device. The mesorectum was divided. And then used the contour stapler the rectum was transected. Next the anvil for the 25 mm stapler was placed through the staple line of the distal colon. The therapy administrative assistant then placed the EEA stapler patient's anus. The spike was driven through the rectal staple line. The anvil for the stapler was then connected to the stapler the stapler closed and fired. The stapler was withdrawn. 2 intact tissue rings were found. At this point the anastomosis was checked by air insufflation. There appeared to be extravasation of air from the staple line. Attempts are made to buttress the staple line with 3-0 silk suture. Stapler was quite low and could not be well-visualized in the pelvis. At this point it was decided to perform a protective ileostomy to protect the anastomosis. The patient's BMI was 43. Her abdominal wall was quite thick. It was decided to perform an end ileostomy because it would be very difficult to bring the loop of ileum through the abdominal wall. A pseudo-spot in the terminal ileum was found and this was transected with a GI stapler. The m esentery of the bowel was divided using insulin device. A suitable spot for the ileostomy was chosen and then the iliopsoas created. The ileum was then brought up through the ileostomy site. The abdomen was irrigated there is no being seen. A KATIE drain was placed the pelvis and brought out through separate Incision this was secured with 3-0 nylon. The fascia was closed with looped PDS suture. The hernia was repaired with fascial closure with the 0 PDS suture. Skin was closed shahram. The ileostomy was matured with 3-0 Vicryl suture. Patient top she will was sent to recovery room stable condition.
[2018-12-25] MEDS: ROPIVACAINE 250 MG, HYDROMORPHONE (PF) 5 MG in SODIUM CHLORIDE 0.9% 200 ML EPIDURAL PRN ×2 (13:35→14:07)
[2018-12-25 14:56] LABS: Basophils # (A) 0.1 k/uL (0-0.2); Basophils % (A) 0 %; Eosinophils # (A) 0.2 k/uL (0-0.7); Eosinophils % (A) 1 %; HCT 46.5 % (34.0-46.0); Lymphocytes # (A) 2.1 k/uL (1.0-4.8); Lymphocytes % (A) 10 %; MCH 26.7 pg (25.0-35.0); MCHC 32.2 g/dL (31.0-37.0); MCV 82.7 fL (80.0-100.0); Mean Platelet Volume 8.5; Monocytes # (A) 0.4 k/uL (0-1.0); Monocytes % (A) 2 %; Neutrophils # (A) 18.6 k/uL (1.3-7.7); Neutrophils % (A) 87 %; RBC 5.62 m/uL (3.80-5.40); RDW 14.7 % (11.5-15.5); WBC 21.4 k/uL (3.8-10.6)
[2018-12-25 15:50] LABS: Platelet Count 255 k/uL (150-450)
[2018-12-25 16:05] LABS: Anion Gap 7 mmol/L; Blood Urea Nitrogen 20 mg/dL (7-17); Calcium 8.8 mg/dL (8.4-10.2); Carbon Dioxide 25 mmol/L (22-30); Chloride 107 mmol/L (98-107); Glucose 160 mg/dL (74-99); Potassium 4.5 mmol/L (3.5-5.1); Sodium 139 mmol/L (137-145)
[2018-12-25] MEDS: HEPARIN SODIUM,PORCINE 5,000 UNIT/ML 1 ML VIAL SQ SCH ×2 (17:36→23:36)
[2018-12-25] MEDS: D5-0.45% NACL WITH KCL 20MEQ/L 1,000 ML IV SCH ×2 (20:27→23:25)
[2018-12-25] MEDS: FAMOTIDINE 20 MG/2 ML VIAL IV SCH (20:27)
--- NOTE | 2018-12-25 21:04 | P.CONS ---
History of Present Illness - Reason for Consult Consult date: 12/25/18 Requesting physician: Anuj Mckenzie - Chief Complaint Post op diverticulitis - History of Present Illness This is a history physical on a 58-year-old white female with known history of chronic pain, depression who is struggling with diverticular disease. The patient is status post repair. The patient seems somewhat lucid but has epidural this time. The patient does not complain of significant chest pain or shortness of breath. No significant nausea, vomiting or diarrhea stated. Review of Systems Constitutional: Denies chills, Denies fever Eyes: denies blurred vision, denies pain Ears, nose, mouth and throat: Denies headache, Denies sore throat Cardiovascular: Denies chest pain, Denies shortness of breath Respiratory: Denies cough Gastrointestinal: Reports as per HPI Musculoskeletal: Denies myalgias Neurological: Denies numbness, Denies weakness Psychiatric: Denies anxiety, Denies depression Endocrine: Denies fatigue, Denies weight change Past Medical History Past Medical History: No Reported History Additional Past Medical History / Comment(s): intermittent "hurts to have a bowel movement",stools are more loose,restless leg syndrome,hx incisional hernia, diverticulitis History of Any Multi-Drug Resistant Organisms: None Reported Past Surgical History: Appendectomy, Section, Hysterectomy Additional Past Surgical History / Comment(s): incisional hernia repair Past Anesthesia/Blood Transfusion Reactions: No Reported Reaction Past Psychological History: Anxiety Smoking Status: Never smoker Past Alcohol Use History: None Reported Past Drug Use History: Cocaine Additional Drug Use History / Comment(s): hx crack cocaine approx 12 years ago. - Past Family History Mother Family Medical History: Congestive Heart Failure (CHF), Diabetes Mellitus, Seizure Disorder Father Family Medical History: COPD Additional Family Medical History / Comment(s): diverticulitis Medications and Allergies Home Medications Medication Instructions Recorded Confirmed Type Gabapentin [Neurontin] 600 mg PO HS 07/28/18 12/25/18 History HYDROcodone/APAP 5-325MG [[place] 1 tab PO Q6HR PRN 07/28/18 12/25/18 History 5-325] Ibuprofen [Motrin] 400 mg PO DAILY PRN 12/22/18 12/25/18 History Allergies Allergy/AdvReac Type Severity Reaction Status Date / Time acetaminophen Allergy Nausea & Verified 12/25/18 14:11 [From Darvocet-N] Vomiting propoxyphene Allergy Nausea & Verified 12/25/18 14:11 [From Darvocet-N] Vomiting Physical Exam Vitals: Vital Signs Temp Pulse Pulse Resp BP Pulse Ox 12/25/18 19:25 97.9 F 78 20 132/78 94 L 12/25/18 16:00 14 12/25/18 14:46 97.8 F 72 14 124/74 95 12/25/18 14:05 82 16 129/75 92 L 12/25/18 13:50 81 16 122/72 95 12/25/18 13:35 80 16 116/67 95 12/25/18 13:21 97.8 F 77 18 117/70 93 L 12/25/18 09:48 68 16 135/65 96 12/25/18 09:11 98.2 F 65 16 144/71 97 Intake and Output 12/25/18 12/25/18 12/25/18 06:59 14:59 22:59 Intake Total 2007 Output Total 130 265 Balance 1878 -265 Intake: IV 2007 Output: Drainage 65 Right Abdomen 65 Urine 100 200 Estimated Blood Loss 30 Other: Voiding Method Indwelling Catheter - Constitutional General appearance: obese - EENT Eyes: EOMI - Neck Neck: no lymphadenopathy - Respiratory Respiratory: bilateral: CTA - Cardiovascular Rhythm: regular Heart sounds: abnormal: S1, S2 Abnormal Heart Sounds: no S3 Gallop - Gastrointestinal General gastrointestinal: absent bowel sounds - Integumentary Integumentary: normal, no rash - Musculoskeletal Musculoskeletal: generalized weakness Results CBC & Chem 7: 12/25/18 14:43 12/25/18 15:45 Labs: Abnormal Lab Results - Last 24 Hours (Table) 12/25/18 12/25/18 Range/Units 14:43 15:45 WBC 21.4 H (3.8-10.6) k/uL RBC 5.62 H (3.80-5.40) m/uL Hct 46.5 H (34.0-46.0) % Neutrophils # 18.6 H (1.3-7.7) k/uL BUN 20 H (7-17) mg/dL Glucose 160 H (74-99) mg/dL Assessment and Plan (1) Diverticulitis large intestine Current Visit: Yes Status: Acute Code(s): K57.32 - DVTRCLI OF LG INT W/O PERFORATION OR ABSCESS W/O BLEEDING SNOMED Code(s): 5003664 (2) Abdominal pain Current Visit: No Status: Acute Code(s): R10.9 - UNSPECIFIED ABDOMINAL PAIN SNOMED Code(s): 51272273 (3) Hernia of anterior abdominal wall Current Visit: No Status: Acute Code(s): K43.9 - VENTRAL HERNIA WITHOUT OBSTRUCTION OR GANGRENE SNOMED Code(s): 971435941 Plan: Appropriate postop pulmonary toilet. Check CBC and CMP in a.m. per Reconcile home medications once patient's nothing by mouth is lifted by surgery. GI and DVT prophylaxis. Time with Patient: Greater than 30
[2018-12-25] MEDS: diphenhydrAMINE 50 MG/ML 1 ML VIAL IVP PRN (23:30)
[2018-12-26] MEDS: D5-0.45% NACL WITH KCL 20MEQ/L 1,000 ML IV SCH ×3 (04:45→23:35)
[2018-12-26] MEDS: diphenhydrAMINE 50 MG/ML 1 ML VIAL IVP PRN ×4 (05:53→23:34)
[2018-12-26 07:42] LABS: Albumin 3.6 g/dL (3.5-5.0); Calcium 8.3 mg/dL (8.4-10.2); Total Bilirubin 0.4 mg/dL (0.2-1.3); Total Protein 6.5 g/dL (6.3-8.2)
[2018-12-26 07:45] LABS: HCT 39.4 % (34.0-46.0); HGB 12.7 gm/dL (11.4-16.0); MCH 27.2 pg (25.0-35.0); MCHC 32.2 g/dL (31.0-37.0); MCV 84.5 fL (80.0-100.0); Mean Platelet Volume 7.4; Platelet Count 351 k/uL (150-450); RBC 4.66 m/uL (3.80-5.40); RDW 14.4 % (11.5-15.5); WBC 17.7 k/uL (3.8-10.6)
--- NOTE | 2018-12-26 08:54 | P.PN ---
Subjective Progress Note Date: 12/26/18 Principal diagnosis: Diverticulitis Patient's postoperative day 1 from low anterior section and protective ileostomy. Patient has some minimal plans of pain. She is actually and then the hallways morning. Objective - Vital Signs Vital signs: Vital Signs Temp 98.1 F 12/26/18 07:00 Pulse 72 12/26/18 07:00 Resp 16 12/26/18 07:00 BP 150/93 12/26/18 07:00 Pulse Ox 95 12/26/18 07:00 Intake & Output 12/25/18 12/26/18 12/26/18 18:59 06:59 18:59 Intake Total 2007 1120 Output Total 160 875 Balance 1848 245 Intake: IV 2007 Intake, IV Titration 1000 Amount D5-0.45% NaCl with KCl 1000 20Meq/l 1,000 ml @ 125 mls/hr IV .Q8H [facility] Rx#: [id number] Oral 120 Output: Drainage 30 50 Right Abdomen 30 50 Urine 100 825 Uretheral (Mason) 200 Estimated Blood Loss 30 Other: Voiding Method Indwelling Catheter Indwelling Catheter - Constitutional General appearance: Present: cooperative - Gastrointestinal Gastrointestinal Comment(s): Abdomen soft. Incision sites clean and intact. Ileostomy is pink. There is no significant bowel function. - Labs CBC & Chem 7: 12/26/18 07:05 12/26/18 07:05 Labs: Abnormal Lab Results - Last 24 Hours (Table) 12/25/18 12/25/18 12/26/18 Range/Units 14:43 15:45 07:05 WBC 21.4 H 17.7 H (3.8-10.6) k/uL RBC 5.62 H (3.80-5.40) m/uL Hct 46.5 H (34.0-46.0) % Neutrophils # 18.6 H (1.3-7.7) k/uL BUN 20 H (7-17) mg/dL Glucose 160 H (74-99) mg/dL Calcium (8.4-10.2) mg/dL 12/26/18 Range/Units 07:05 WBC (3.8-10.6) k/uL RBC (3.80-5.40) m/uL Hct (34.0-46.0) % Neutrophils # (1.3-7.7) k/uL BUN 18 H (7-17) mg/dL Glucose 114 H (74-99) mg/dL Calcium 8.3 L (8.4-10.2) mg/dL Assessment and Plan Assessment: Status post low anterior resection for diverticulitis with protective ileostomy. Patient will remain on clear liquids. We will advance her diet once she has significant bowel function.
[2018-12-26] MEDS: FAMOTIDINE 20 MG/2 ML VIAL IV SCH ×2 (09:15→21:15)
[2018-12-26] MEDS: HEPARIN SODIUM,PORCINE 5,000 UNIT/ML 1 ML VIAL SQ SCH ×3 (09:15→23:34)
[2018-12-26] MEDS: ALVIMOPAN 12 MG CAPSULE PO SCH ×2 (09:15→21:15)
[2018-12-26] MEDS: PIPERACILLIN-TAZOBACTAM 3.375 GM in SODIUM CHLORIDE 0.9% 100 ML IVPB SCH ×3 (10:10→19:05)
--- NOTE | 2018-12-26 12:46 | P.PN ---
Subjective 58-year-old female admitted for incisional hernia repair low anterior resection appears to have had small bowel resection and ileostomy. Patient doesn't have any gas in the ileostomy. Does have an epidural in place. Denied any pain at this time. Constitutional: Denied any fatigue denied any fever. Cardio vascular: denied any chest pain, palpitations Gastrointestinal denied any nausea vomiting Pulmonary: Denied any shortness of breath cough Neurologic denied any new focal deficits All inpatient medications were reviewed and appropriate changes in these medications as dictated in the interval history and assessment and plan. Objective - Vital Signs Vital signs: Vital Signs Temp 98.1 F 12/26/18 07:00 Pulse 72 12/26/18 07:00 Resp 16 12/26/18 07:00 BP 150/93 12/26/18 07:00 Pulse Ox 95 12/26/18 07:00 Intake & Output 12/25/18 12/26/18 12/26/18 18:59 06:59 18:59 Intake Total 2007 1120 120 Output Total 160 875 20 Balance 1848 245 100 Intake: IV 2007 Intake, IV Titration 1000 Amount D5-0.45% NaCl with KCl 1000 20Meq/l 1,000 ml @ 125 mls/hr IV .Q8H [facility] Rx#: [id number] Oral 120 120 Output: Drainage 30 50 20 Right Abdomen 30 50 20 Urine 100 825 Uretheral (Mason) 200 Estimated Blood Loss 30 Other: Voiding Method Indwelling Catheter Indwelling Catheter Indwelling Catheter - Exam PHYSICAL EXAMINATION: GENERAL: The patient is alert and oriented x3, not in any acute distress. Obese. HEENT: Pupils are round and equally reacting to light. EOMI. No scleral icterus. No conjunctival pallor. Normocephalic, atraumatic. No pharyngeal erythema. No thyromegaly. CARDIOVASCULAR: S1 and S2 present. No murmurs, rubs, or gallops. PULMONARY: Chest is clear to auscultation, no wheezing or crackles. ABDOMEN: Soft, nontender, ileostomy in place liquid into the ileostomy bag. Bowel sounds present but sluggish MUSCULOSKELETAL: No joint swelling or deformity. EXTREMITIES: No cyanosis, clubbing, or pedal edema. NEUROLOGICAL: Gross neurological examination did not reveal any focal deficits. SKIN: No rashes. - Labs CBC & Chem 7: 12/26/18 07:05 12/26/18 07:05 Labs: Abnormal Lab Results - Last 24 Hours (Table) 12/25/18 12/25/18 12/26/18 Range/Units 14:43 15:45 07:05 WBC 21.4 H 17.7 H (3.8-10.6) k/uL RBC 5.62 H (3.80-5.40) m/uL Hct 46.5 H (34.0-46.0) % Neutrophils # 18.6 H (1.3-7.7) k/uL BUN 20 H (7-17) mg/dL Glucose 160 H (74-99) mg/dL Calcium (8.4-10.2) mg/dL 12/26/18 Range/Units 07:05 WBC (3.8-10.6) k/uL RBC (3.80-5.40) m/uL Hct (34.0-46.0) % Neutrophils # (1.3-7.7) k/uL BUN 18 H (7-17) mg/dL Glucose 114 H (74-99) mg/dL Calcium 8.3 L (8.4-10.2) mg/dL Assessment and Plan Plan: -Incisional hernia, diverticulitis status post low anterior resection of the small bowel with air ileostomy.. -Sepsis secondary to diverticular disease as mentioned above, leukocytosis is im proving, patient is presently on Zosyn which will be continued -Anxiety disorder. -DVT prophylaxis as per primary service
--- NOTE | 2018-12-26 17:45 | P.PN ---
Progress Note - Text Progress Note Date: 12/26/18 Postoperative day # 1 status post low anterior resection ,epidural catheter pl aced for postoperative analgesia, patient doing well epidural site okay, patient currently on combination of epidural infusion solution of Ropivacaine 0.0625% and Dilaudid 20 g per mL the infusion rate at 6 ml per hour , patient had no motor deficit epidural site okay , vital signs stable ,VAS 6/10 , Assessment and plan= post operative day #1 patient doing well , she is complaining of some pain, we'll increase the epidural infusion to 7 mL per , there is no anesthesia related complications
[2018-12-26] MEDS: ROPIVACAINE 250 MG, HYDROMORPHONE (PF) 5 MG in SODIUM CHLORIDE 0.9% 200 ML EPIDURAL PRN (23:36)
[2018-12-27] MEDS: PIPERACILLIN-TAZOBACTAM 3.375 GM in SODIUM CHLORIDE 0.9% 100 ML IVPB SCH ×3 (04:06→20:05)
[2018-12-27 07:21] LABS: HCT 42.6 % (34.0-46.0); HGB 13.5 gm/dL (11.4-16.0); Hypochromasia Slight; MCH 27.3 pg (25.0-35.0); MCHC 31.8 g/dL (31.0-37.0); MCV 85.9 fL (80.0-100.0); Mean Platelet Volume 7.3; Platelet Count 285 k/uL (150-450); RBC 4.97 m/uL (3.80-5.40); RDW 14.6 % (11.5-15.5); WBC 15.3 k/uL (3.8-10.6)
[2018-12-27 07:57] LABS: Calcium 8.6 mg/dL (8.4-10.2); Potassium 4.1 mmol/L (3.5-5.1)
[2018-12-27] MEDS: diphenhydrAMINE 50 MG/ML 1 ML VIAL IVP PRN ×2 (08:32→15:41)
[2018-12-27] MEDS: HEPARIN SODIUM,PORCINE 5,000 UNIT/ML 1 ML VIAL SQ SCH ×2 (08:33→15:39)
[2018-12-27] MEDS: ALVIMOPAN 12 MG CAPSULE PO SCH ×2 (08:33→20:05)
[2018-12-27] MEDS: FAMOTIDINE 20 MG/2 ML VIAL IV SCH ×2 (08:33→20:05)
--- NOTE | 2018-12-27 11:13 | P.PN ---
Progress Note - Text Progress Note Date: 12/27/18 Postoperative day 2 Patient is resting comfortably in her bed. She was ambulatory earlier. She's had some output through her ileostomy. On exam her vital signs are stable. Her abdomen is soft. Incision site is clean dry intact. Ileostomy dysfunction. Status post low anterior resection with protective ileostomy. Patient will have her diet slowly advanced tomorrow.
--- NOTE | 2018-12-27 12:11 | P.PN ---
Subjective 58-year-old female admitted for incisional hernia repair low anterior resection appears to have had small bowel resection and ileostomy. Patient doesn't have any gas in the ileostomy. Does have an epidural in place. Denied any pain at this time. 12/27/2018 Abdominal pain is better controlled patient does have output and ileostomy Constitutional: Denied any fatigue denied any fever. Cardio vascular: denied any chest pain, palpitations Gastrointestinal denied any nausea vomiting Pulmonary: Denied any shortness of breath cough Neurologic denied any new focal deficits All inpatient medications were reviewed and appropriate changes in these medications as dictated in the interval history and assessment and plan. Objective - Vital Signs Vital signs: Vital Signs Temp 98.8 F 12/27/18 07:30 Pulse 71 12/27/18 07:30 Resp 16 12/27/18 07:30 BP 127/80 12/27/18 07:30 Pulse Ox 95 12/27/18 07:30 Intake & Output 12/26/18 12/27/18 12/27/18 18:59 06:59 18:59 Intake Total 440 969.5 Output Total 1440 1250 780 Balance -1000 -280.5 -780 Intake: Intake, IV Titration 969.5 Amount D5-0.45% NaCl with KCl 600 20Meq/l 1,000 ml @ 75 mls /hr IV .[id number] [facility] Rx#: [id number] Piperacillin-Tazobactam 3 200 .375 gm In Sodium Chloride 0.9% 100 ml @ 25 mls/hr IVPB Q8H [facility] Rx#: [id number] Ropivacaine 250 mg 169.5 Hydromorphone (Pf) 5 mg In Sodium Chloride 0.9% 200 ml @ Per Protocol EPIDURAL .Q0M PRN Rx#: [id number] Oral 440 Output: Drainage 40 150 180 Right Abdomen 40 150 180 Urine 1400 700 Uretheral (Mason) 600 Stool 400 600 Other: Voiding Method Indwelling Catheter Indwelling Catheter # Voids 400 - Exam PHYSICAL EXAMINATION: GENERAL: The patient is alert and oriented x3, not in any acute distress. Obese. HEENT: Pupils are round and equally reacting to light. EOMI. No scleral icterus. No conjunctival pallor. Normocephalic, atraumatic. No pharyngeal erythema. No thyromegaly. CARDIOVASCULAR: S1 and S2 present. No murmurs, rubs, or gallops. PULMONARY: Chest is clear to auscultation, no wheezing or crackles. ABDOMEN: Soft, nontender, ileostomy in place liquid into the ileostomy bag. Bowel sounds present. MUSCULOSKELETAL: No joint swelling or deformity. EXTREMITIES: No cyanosis, clubbing, or pedal edema. NEUROLOGICAL: Gross neurological examination did not reveal any focal deficits. SKIN: No rashes. - Labs CBC & Chem 7: 12/27/18 06:41 12/27/18 06:41 Labs: Abnormal Lab Results - Last 24 Hours (Table) 12/27/18 12/27/18 Range/Units 06:41 06:41 WBC 15.3 H (3.8-10.6) k/uL Glucose 111 H (74-99) mg/dL Assessment and Plan Plan: -Incisional hernia, diverticulitis status post low anterior resection of the small bowel with air ileostomy.. Patient does have PATENT ileostomy -Sepsis secondary to diverticular disease as mentioned above, leukocytosis is improving, patient is presently on Zosyn which will be continued -Anxiety disorder. -DVT prophylaxis as per primary service
--- NOTE | 2018-12-27 16:33 | P.PN ---
Progress Note - Text Progress Note Date: 12/27/18 Postoperative day #2 status post low anterior resection ,epidural catheter pl aced for postoperative analgesia, patient doing well epidural site okay, patient currently on combination of epidural infusion solution of Ropivacaine 0.0625% and Dilaudid 20 g per mL the infusion rate at 7 ml per hour , patient had no motor deficit epidural site okay , vital signs stable ,VAS 3-4/10 , Assessment and plan= post operative day # 2 patient doing well ,pain adequately controlled , there is no anesthesia related complications
[2018-12-27] MEDS: D5-0.45% NACL WITH KCL 20MEQ/L 1,000 ML IV SCH (17:30)
[2018-12-28] MEDS: HEPARIN SODIUM,PORCINE 5,000 UNIT/ML 1 ML VIAL SQ SCH ×4 (00:16→17:46)
[2018-12-28] MEDS: ROPIVACAINE 250 MG, HYDROMORPHONE (PF) 5 MG in SODIUM CHLORIDE 0.9% 200 ML EPIDURAL PRN (01:31)
[2018-12-28] MEDS: PIPERACILLIN-TAZOBACTAM 3.375 GM in SODIUM CHLORIDE 0.9% 100 ML IVPB SCH ×3 (03:41→20:10)
--- NOTE | 2018-12-28 07:46 | P.PN ---
Subjective Progress Note Date: 12/28/18 Principal diagnosis: This continue present 58-year-old white female postop day #4 for diverticular disease. The patient seems in good spirits today with pain control being appropriate. No new voiding difficulties. She is tolerating clear liquids, but appetite is minimal. No overt fever or chills stated. No significant nausea, vomiting or diarrhea Objective - Vital Signs Vital signs: Vital Signs Temp 98.0 F 12/28/18 07:13 Pulse 75 12/28/18 07:13 Resp 14 12/28/18 07:13 BP 147/85 12/28/18 07:13 Pulse Ox 96 12/28/18 07:13 Intake & Output 12/27/18 12/28/18 12/28/18 18:59 06:59 18:59 Intake Total 855.5 Output Total 2195 1600 Balance -2195 -744.5 Intake: Intake, IV Titration 855.5 Amount D5-0.45% NaCl with KCl 600 20Meq/l 1,000 ml @ 75 mls /hr IV .[id number] [facility] Rx#: [id number] Piperacillin-Tazobactam 3 100 .375 gm In Sodium Chloride 0.9% 100 ml @ 25 mls/hr IVPB Q8H [facility] Rx#: [id number] Ropivacaine 250 mg 155.5 Hydromorphone (Pf) 5 mg In Sodium Chloride 0.9% 200 ml @ Per Protocol EPIDURAL .Q0M PRN Rx#: [id number] Output: Drainage 245 200 Right Abdomen 245 200 Urine 450 850 Stool 1500 550 Other: Voiding Method Indwelling Catheter Indwelling Catheter # Voids 400 2 - Constitutional General appearance: Present: obese - EENT Eyes: Absent: abnormal pupil - Neck Neck: Absent: lymphadenopathy - Respiratory Respiratory: bilateral: CTA - Cardiovascular Rhythm: regular Heart sounds: normal: S1, S2 Abnormal Heart Sounds: Absent: S3 Gallop - Gastrointestinal General gastrointestinal: Present: soft. Absent: tenderness - Integumentary Integumentary: Absent: cellulitis - Neurologic Neurologic: Present: CNII-XII intact - Psychiatric Psychiatric: Present: A&O x's 3, appropriate affect - Labs CBC & Chem 7: 12/27/18 06:41 12/27/18 06:41 Labs: Abnormal Lab Results - Last 24 Hours (Table) 12/27/18 Range/Units 06:41 Glucose 111 H (74-99) mg/dL Assessment and Plan (1) Diverticulitis large intestine Current Visit: Yes Status: Acute Code(s): K57.32 - DVTRCLI OF LG INT W/O PERFORATION OR ABSCESS W/O BLEEDING SNOMED Code(s): 2726170 (2) Abdominal pain Current Visit: No Status: Acute Code(s): R10.9 - UNSPECIFIED ABDOMINAL PAIN SNOMED Code(s): 55942154 (3) Hernia of anterior abdominal wall Current Visit: No Status: Acute Code(s): K43.9 - VENTRAL HERNIA WITHOUT OBSTRUCTION OR GANGRENE SNOMED Code(s): 578184725 Plan: The patient seemingly is on an appropriate trajectory for recovery. We'll continue to follow with general surgery. Most likely will DC epidural and transition to oral pain medication. Check CBC and CMP in a.m.
[2018-12-28] MEDS: FAMOTIDINE 20 MG/2 ML VIAL IV SCH ×2 (09:22→20:11)
[2018-12-28] MEDS: D5-0.45% NACL WITH KCL 20MEQ/L 1,000 ML IV SCH ×2 (09:22→20:11)
[2018-12-28] MEDS: ALVIMOPAN 12 MG CAPSULE PO SCH ×2 (09:22→20:10)
[2018-12-28 10:47] VITALS: BMI 42.9
--- NOTE | 2018-12-28 10:53 | P.PN ---
Progress Note - Text Progress Note Date: 12/28/18 Postoperative day # 3 status post low anterior resection ,epidural catheter p laced for postoperative analgesia, patient doing well epidural site okay, patient currently on combination of epidural infusion solution of Ropivacaine 0.0625% and Dilaudid 20 g per mL the infusion , epidural site okay, pain well controlled, will discontinue epidural catheter today, pain management as per surgical team.
--- NOTE | 2018-12-28 11:46 | P.PN ---
Subjective Progress Note Date: 12/28/18 CHIEF COMPLAINT: Diverticulitis HISTORY OF PRESENT ILLNESS: 58-year-old female who underwent low anterior resection and protective ileostomy. POD #3. Ileostomy with stool noted. Patient tolerating clear liquid diet. Denies nausea or vomiting. KATIE with serous drainage. Epidural infusing. Pain tolerable. PHYSICAL EXAM: VITAL SIGNS: Reviewed. GENERAL: Well-developed in no acute distress. HEENT: No sclera icterus. Extraocular movements grossly intact. Moist buccal mucosa. Head is atraumatic, normocephalic. ABDOMEN: Soft. KATIE drain with serous drainage. Ostomy with stool noted. [place] to midline clean dry intact. NEUROLOGIC: Alert and oriented. Cranial nerves II through XII grossly intact. ASSESSMENT: 1. Diverticulitis, s/p low anterior resection and protective ileostomy PLAN: 1. Hold morning heparin. Discontinue epidural 2. Discontinue holden this afternoon 3. Increase activity as tolerated 4. Incentive spirometry 5. Increase diet to full liquid Nurse practitioner note has been reviewed by physician. Signing provider agrees with the documented findings, assessment, and plan of care. Objective - Vital Signs Vital signs: Vital Signs Temp 98.0 F 12/28/18 07:13 Pulse 75 12/28/18 07:13 Resp 14 12/28/18 07:13 BP 147/85 12/28/18 07:13 Pulse Ox 96 12/28/18 07:13 Intake & Output 12/27/18 12/28/18 12/28/18 18:59 06:59 18:59 Intake Total 855.5 180 Output Total 2195 1600 375 Balance -2195 -744.5 -195 Weight 113.398 kg Intake: Intake, IV Titration 855.5 Amount D5-0.45% NaCl with KCl 600 20Meq/l 1,000 ml @ 75 mls /hr IV .[id number] [facility] Rx#: [id number] Piperacillin-Tazobactam 3 100 .375 gm In Sodium Chloride 0.9% 100 ml @ 25 mls/hr IVPB Q8H [facility] Rx#: [id number] Ropivacaine 250 mg 155.5 Hydromorphone (Pf) 5 mg In Sodium Chloride 0.9% 200 ml @ Per Protocol EPIDURAL .Q0M PRN Rx#: [id number] Oral 180 Output: Drainage 245 200 Right Abdomen 245 200 Urine 450 850 Stool 1500 550 375 Other: Voiding Method Indwelling Catheter Indwelling Catheter Indwelling Catheter # Voids 400 2 - Labs CBC & Chem 7: 12/27/18 06:41 12/27/18 06:41
[2018-12-28] MEDS: ONDANSETRON 4 MG/2 ML VIAL IVP PRN (20:11)
[2018-12-29] MEDS: HEPARIN SODIUM,PORCINE 5,000 UNIT/ML 1 ML VIAL SQ SCH ×4 (00:39→23:01)
[2018-12-29] MEDS: PIPERACILLIN-TAZOBACTAM 3.375 GM in SODIUM CHLORIDE 0.9% 100 ML IVPB SCH ×3 (04:13→21:24)
[2018-12-29] MEDS: HYDROcodone/APAP 5-325MG 1 EACH TAB PO PRN ×3 (04:13→15:10)
[2018-12-29] MEDS: D5-0.45% NACL WITH KCL 20MEQ/L 1,000 ML IV SCH ×2 (04:14→19:57)
[2018-12-29] MEDS: FAMOTIDINE 20 MG/2 ML VIAL IV SCH (08:56)
[2018-12-29] MEDS: SERTRALINE 50 MG TAB PO SCH (08:56)
[2018-12-29] MEDS: ALVIMOPAN 12 MG CAPSULE PO SCH ×2 (08:56→21:24)
[2018-12-29 09:01] LABS: HCT 44.6 % (34.0-46.0); HGB 14.9 gm/dL (11.4-16.0); MCH 27.2 pg (25.0-35.0); MCHC 33.3 g/dL (31.0-37.0); MCV 81.8 fL (80.0-100.0); Platelet Count 360 k/uL (150-450); RBC 5.46 m/uL (3.80-5.40); RDW 14.3 % (11.5-15.5); WBC 12.8 k/uL (3.8-10.6)
[2018-12-29 10:51] LABS: Albumin 3.6 g/dL (3.5-5.0); Calcium 9.2 mg/dL (8.4-10.2); Potassium 4.8 mmol/L (3.5-5.1); Total Bilirubin 0.5 mg/dL (0.2-1.3); Total Protein 6.7 g/dL (6.3-8.2)
--- NOTE | 2018-12-29 11:59 | P.PN ---
Subjective Progress Note Date: 12/29/18 CHIEF COMPLAINT: Diverticulitis HISTORY OF PRESENT ILLNESS: 58-year-old female who underwent low anterior resection and protective ileostomy. POD #4. Ileostomy with stool noted- leaking frequently. KATIE with serosanguineous drainage. Patient refusing to pa rticipate with ostomy care and states she will not empty ostomy because it makes her nauseous. Patient states she plans to have someone stay with her 10/03 for the next 3 months to help care for her ostomy. Extensive discussion held at bedside regarding importance of patient to participate in her own care and issues that could arise from depending on someone else to empty and change her ostomy for the next 3 months. Patient states "I just cant do it. I'll gag". PHYSICAL EXAM: VITAL SIGNS: Reviewed. GENERAL: Well-developed in no acute distress. HEENT: No sclera icterus. Extraocular movements grossly intact. Moist buccal mucosa. Head is atraumatic, normocephalic. ABDOMEN: Soft. KATIE drain with serous drainage. Ostomy with stool noted. [place] to midline clean dry intact. NEUROLOGIC: Alert and oriented. Cranial nerves II through XII grossly intact. ASSESSMENT: 1. Diverticulitis, s/p low anterior resection and protective ileostomy PLAN: 1. Activity as tolerated 2. Pain control 3. Incentive spirometry 4. Ostomy nurse on consult 5. Advance diet 6. Patient encouraged to participate in self care including ostomy care but continues to refuse Nurse practitioner note has been reviewed by physician. Signing provider agrees with the documented findings, assessment, and plan of care. Objective - Vital Signs Vital signs: Vital Signs Temp 97.6 F 12/29/18 07:00 Pulse 70 12/29/18 08:00 Resp 18 12/29/18 08:00 BP 138/91 12/29/18 07:00 Pulse Ox 95 12/29/18 07:00 Intake & Output 12/28/18 12/29/18 12/29/18 18:59 06:59 18:59 Intake Total 1060 1040 Output Total 1490 1570 890 Balance -430 530 -890 Weight 113.398 kg Intake: Intake, IV Titration 700 250 Amount D5-0.45% NaCl with KCl 600 150 20Meq/l 1,000 ml @ 75 mls /hr IV .[id number] [facility] Rx#: [id number] Piperacillin-Tazobactam 3 100 100 .375 gm In Sodium Chloride 0.9% 100 ml @ 25 mls/hr IVPB Q8H [facility] Rx#: [id number] Oral 360 790 Output: Drainage 190 70 40 Right Abdomen 190 70 40 Urine 400 750 100 Uretheral ([place]) 400 Stool 900 750 750 Other: Voiding Method Indwelling Catheter Toilet Toilet # Voids 1 - Labs CBC & Chem 7: 12/29/18 07:41 12/29/18 09:26 Labs: Abnormal Lab Results - Last 24 Hours (Table) 12/29/18 12/29/18 Range/Units 07:41 09:26 WBC 12.8 H (3.8-10.6) k/uL RBC 5.46 H (3.80-5.40) m/uL Glucose 124 H (74-99) mg/dL
[2018-12-29] MEDS: ONDANSETRON 4 MG/2 ML VIAL IVP PRN (15:14)
[2018-12-29] MEDS: GABAPENTIN 300 MG CAP PO SCH (21:24)
[2018-12-29] MEDS: FAMOTIDINE 20 MG TAB PO SCH (21:24)
[2018-12-30] MEDS ORDERED: HEPARIN SODIUM,PORCINE 5,000 UNIT/ML 1 ML VIAL ONE
[2018-12-30] MEDS: PIPERACILLIN-TAZOBACTAM 3.375 GM in SODIUM CHLORIDE 0.9% 100 ML IVPB SCH ×2 (05:44→10:28)
[2018-12-30] MEDS: HYDROcodone/APAP 5-325MG 1 EACH TAB PO PRN (05:44)
[2018-12-30] MEDS: ONDANSETRON 4 MG/2 ML VIAL IVP PRN (06:47)
--- NOTE | 2018-12-30 08:12 | P.PN ---
Subjective Progress Note Date: 12/30/18 Principal diagnosis: This continue present 58-year-old white female postop day #4 for diverticular disease. The patient seems in good spirits today with pain control being appropriate. No new voiding difficulties. She is tolerating clear liquids, but appetite is minimal. Continue process on a 58-year-old white female postop diverticular disease with partial colectomy. The patient states poor sleep. She'll states colostomy is slightly oozing Objective - Vital Signs Vital signs: Vital Signs Temp 98.1 F 12/30/18 07:14 Pulse 64 12/30/18 07:14 Resp 14 12/30/18 07:14 BP 136/84 12/30/18 07:14 Pulse Ox 98 12/30/18 07:14 Intake & Output 12/29/18 12/30/18 12/30/18 18:59 06:59 18:59 Output Total 1190 200 Balance -1190 -200 Output: Drainage 40 Right Abdomen 40 Urine 100 Stool 1050 200 Other: Voiding Method Toilet Toilet # Voids 1 - Constitutional General appearance: Absent: average body habitus - EENT Eyes: Absent: abnormal pupil - Neck Neck: Absent: lymphadenopathy - Respiratory Respiratory: bilateral: CTA - Cardiovascular Rhythm: regular Heart sounds: normal: S1, S2 Abnormal Heart Sounds: Absent: S3 Gallop - Gastrointestinal General gastrointestinal: Present: soft. Absent: tenderness - Psychiatric Psychiatric: Present: A&O x's 3. Absent: appropriate affect - Labs CBC & Chem 7: 12/29/18 07:41 12/29/18 09:26 Labs: Abnormal Lab Results - Last 24 Hours (Table) 12/29/18 12/29/18 Range/Units 07:41 09:26 WBC 12.8 H (3.8-10.6) k/uL RBC 5.46 H (3.80-5.40) m/uL Glucose 124 H (74-99) mg/dL Assessment and Plan (1) Diverticulitis large intestine Current Visit: Yes Status: Acute Code(s): K57.32 - DVTRCLI OF LG INT W/O PERFORATION OR ABSCESS W/O BLEEDING SNOMED Code(s): 6283205 (2) Abdominal pain Current Visit: No Status: Acute Code(s): R10.9 - UNSPECIFIED ABDOMINAL PAIN SNOMED Code(s): 71406760 (3) Hernia of anterior abdominal wall Current Visit: No Status: Acute Code(s): K43.9 - VENTRAL HERNIA WITHOUT OBSTRUCTION OR GANGRENE SNOMED Code(s): 822996928 Plan: Continue current regimen or treatment. Ostomy protocols. Anticipate discharge in next 24 if cardiogenic trajectory of recovery holds. The patient seems to be stabilizing appropriately.
[2018-12-30] MEDS: SERTRALINE 50 MG TAB PO SCH (08:25)
[2018-12-30] MEDS: HEPARIN SODIUM,PORCINE 5,000 UNIT/ML 1 ML VIAL SQ SCH (08:25)
[2018-12-30] MEDS: ALVIMOPAN 12 MG CAPSULE PO SCH (08:25)
[2018-12-30] MEDS: GABAPENTIN 300 MG CAP PO SCH (08:25)
[2018-12-30] MEDS: FAMOTIDINE 20 MG TAB PO SCH (08:25)
--- NOTE | 2018-12-30 13:09 | P.DS ---
Providers Date of admission: 12/25/18 08:48 Expected date of discharge: 12/30/18 Attending physician: Anuj Mckenzie Consults: 12/25/18 13:25 Consult Physician Routine Consulting Provider: Andres Barbosa Consult Reason/Comments: Medical management Do you want consulting provider notified?: Yes Primary care physician: Andres Barbosa Hospital Course: 58-year-old female who underwent low anterior resection and protective ileostomy. Patient is doing well postoperatively without any immediate complications. Pain controlled on oral medications. Tolerating diet. No nausea or vomiting. Ostomy functioning. Patient evaluated by Ostomy Resource Nurse during hospitalization and educated on ostomy care. Patient is stable for discharge home today with KATIE drain. Please see EMR for further hospital course details. ASSESSMENT: 1. Diverticulitis, s/p low anterior resection and protective ileostomy Nurse practitioner note has been reviewed by physician. Signing provider agrees with the documented findings, assessment, and plan of care. Patient Condition at Discharge: Stable Plan - Discharge Summary Discharge Rx Participant: Yes New Discharge Prescriptions: New Levofloxacin [Levaquin] 750 mg PO DAILY #7 tab No Action HYDROcodone/APAP 5-325MG [[place] 5-325] 1 tab PO Q6HR PRN PRN Reason: Pain Gabapentin [Neurontin] 600 mg PO HS Ibuprofen [Motrin] 400 mg PO DAILY PRN PRN Reason: Pain Discharge Medication List Gabapentin [Neurontin] 600 mg PO HS 07/28/18 [History] HYDROcodone/APAP 5-325MG [[place] 5-325] 1 tab PO Q6HR PRN 07/28/18 [History] Ibuprofen [Motrin] 400 mg PO DAILY PRN 12/22/18 [History] Levofloxacin [Levaquin] 750 mg PO DAILY #7 tab 12/30/18 [Rx] Follow up Appointment(s)/Referral(s): [facility], [NON-STAFF] - 1 Week Anuj Mckenzie MD [STAFF PHYSICIAN] - 1 Week Patient Instructions/Handouts: Diverticulitis (GEN), Ileostomy Care (GEN) Activity/Diet/Wound Care/Special Instructions: pt will [place] staying with [place] [address] [place] No lifting over 10 pounds You may shower. No soaking or tub baths Very light activity until you are reevaluated at your follow up appointment with your surgeon Discharge Disposition: HOME WITH HOME HEALTH SERVICES
[2018-12-30 14:06] VITALS: BP 150/94; PULSE 67; RESP 17; TEMP 98.8
--- NOTE | 2018-12-31 16:06 | CDI ---
Documentation Clarification Form Date: 12/31/18 From: Eliana Zarate Phone: If you have a question regarding this query, please contact Dolly Gudino at [phone] between 8am and 5pm. Admit Date: 12/25/2018 8:48:00 AM Patient Name: Olena Lopez Visit Number: [id number] Discharge Date: 12/30/2018 3:44:00 PM ATTENTION: The Clinical Documentation Specialists (CDI) and [facility] Coding Staff appreciate your assistance in clarifying documentation. Please respond to the clarification below the line at the bottom and electronically sign. The CDI & [facility] Coding staff will review the response and follow-up if needed. Please note: Queries are made part of the Legal Health Record. If you have any questions, please contact the author of this message via ITS. YISEL Chisholm/Dr. Anuj Tomlinania The patient presented with diverticulitis. Sepsis is documented in Dr. Watson 12/26 & 12/27 progress notes but not in the discharge summary. History/Risk Factors: Long standing problems of diverticulitis. Clinical Indicators: Leukocytosis WBC: 21.4 Lactic acid: Not tested Blood cultures: Not tested. Vitals signs on admission: T. 98.2, P. 65, R. 16, BP 144/71 Treatment: Antibiotics: IV Zosyn IV Bolus: None In your professional opinion, please clarify if these findings signify one of the following conditions: Sepsis was confirmed Unable to exclude sepsis Sepsis was ruled out Other, please specify Unable to determine MTDD
== END 2018-12-30 15:44 | disposition home health service (06) | DRG 331 ==
LOC: 2ORMAIN 08:48 → 4SSUR 13:06
PROVIDERS: ADMIT Surgery; ATTEND Surgery
PROC: 0D1B0Z4 Bypass Ileum to Cutaneous, Open Approach (ICD-10-PCS; 2018-12-25)
PROC: 0DTN0ZZ Resection of Sigmoid Colon, Open Approach (ICD-10-PCS; principal; 2018-12-25 10:45)
DX: K57.32 Diverticulitis of large intestine without perforation or abscess without bleeding (principal); G25.81 Restless legs syndrome; K43.2 Incisional hernia without obstruction or gangrene; F32.9 Major depressive disorder, single episode, unspecified; F41.9 Anxiety disorder, unspecified; G89.29 Other chronic pain; Z90.710 Acquired absence of both cervix and uterus; Z90.49 Acquired absence of other specified parts of digestive tract; Z79.899 Other long term (current) drug therapy; Z88.5 Allergy status to narcotic agent; Z82.0 Family history of epilepsy and other diseases of the nervous system; Z82.49 Family history of ischemic heart disease and other diseases of the circulatory system; Z82.5 Family history of asthma and other chronic lower respiratory diseases; Z83.3 Family history of diabetes mellitus
CPT/HCPCS: 80048; 80053; 85025; 85027; 86850; 86900; 86901; 88307

== ENCOUNTER 2019-01-01 18:23 | Emergency (ER) | payer OTHER ==
[2019-01-01 18:38] VITALS: BP 139/91; PULSE 63; RESP 19; TEMP 97.4
--- NOTE | 2019-01-01 19:39 | ED ---
General Adult HPI - General Chief complaint: Skin/Abscess/Foreign Body Stated complaint: post op complications Time Seen by Provider: 01/01/19 18:53 Source: patient, EMS, RN notes reviewed Mode of arrival: EMS Limitations: physical limitation - History of Present Illness Initial comments: 58-year-old female presents to the emergency department for leaking colostomy bag. Patient states she was released from the hospital 2 days ago after she had a partial resection of the colon due to diverticulitis. Patient states this is reversible ostomy. Patient states they found a bag that works well for her. However when her home health nurse came over today she refused to put the preferred bag on the patient. Patient states that this bag is not leaking. States she has to lay flat for this and that she cannot do this on her own. Denies any abdominal pain. Patient has no other complaints at this time including shortness of breath, chest pain, abdominal pain, nausea or vomiting, headache, or visual changes. - Related Data Home Medications Medication Instructions Recorded Confirmed Gabapentin [Neurontin] 600 mg PO HS 07/28/18 01/01/19 HYDROcodone/APAP 5-325MG [[place] 1 tab PO Q6HR PRN 07/28/18 01/01/19 5-325] Ibuprofen [Motrin] 400 mg PO DAILY PRN 12/22/18 01/01/19 Previous Rx's Medication Instructions Recorded Levofloxacin [Levaquin] 750 mg PO DAILY #7 tab 12/30/18 Allergies Allergy/AdvReac Type Severity Reaction Status Date / Time acetaminophen Allergy Nausea & Verified 12/25/18 14:11 [From Darvocet-N] Vomiting propoxyphene Allergy Nausea & Verified 12/25/18 14:11 [From Darvocet-N] Vomiting Review of Systems ROS Statement: Those systems with pertinent positive or pertinent negative responses have been documented in the HPI. ROS Other: All systems not noted in ROS Statement are negative. Past Medical History Past Medical History: No Reported History Additional Past Medical History / Comment(s): intermittent "hurts to have a bowel movement",stools are more loose,restless leg syndrome,hx incisional hernia History of Any Multi-Drug Resistant Organisms: None Reported Past Surgical History: Appendectomy, Section, Hysterectomy Additional Past Surgical History / Comment(s): incisional hernia repair Past Anesthesia/Blood Transfusion Reactions: No Reported Reaction Past Psychological History: Anxiety Smoking Status: Never smoker Past Alcohol Use History: None Reported Past Drug Use History: Cocaine - Past Family History Mother Family Medical History: Congestive Heart Failure (CHF), Diabetes Mellitus, Seizure Disorder Father Family Medical History: COPD Additional Family Medical History / Comment(s): diverticulitis General Exam Limitations: physical limitation General appearance: alert, in no apparent distress Head exam: Present: atraumatic, normocephalic, normal inspection Eye exam: Present: normal appearance, PERRL, EOMI. Absent: scleral icterus, conjunctival injection, periorbital swelling ENT exam: Present: normal exam, mucous membranes moist Neck exam: Present: normal inspection, full ROM. Absent: tenderness, meningismus, lymphadenopathy Respiratory exam: Present: normal lung sounds bilaterally. Absent: respiratory distress, wheezes, rales, rhonchi, stridor Cardiovascular Exam: Present: regular rate, normal rhythm, normal heart sounds. Absent: systolic murmur, diastolic murmur, rubs, gallop, clicks GI/Abdominal exam: Present: soft, other (Ostomy bag noted, leaking somewhat at this time.). Absent: distended, tenderness, guarding, rebound, rigid Course Vital Signs 01/01/19 18:33 Temperature 97.4 F L Pulse Rate 63 Respiratory 19 Rate Blood Pressure 139/91 O2 Sat by Pulse 97 Oximetry Medical Decision Making - Medical Decision Making 58-year-old female presents for colostomy bag care. States she cannot do this on her own because she has to lay flat to have it done. States her nurse is coming tomorrow. RN did change colostomy bag to the patient's satisfaction. No drainage. Patient denies any abdominal pain or other complications, just here for colostomy care. Patient will be discharged home to follow up with primary care and return here if she has any worsening symptoms. Disposition Clinical Impression: Encounter for ostomy nurse consultation Disposition: HOME SELF-CARE Condition: Good Instructions (If sedation given, give patient instructions): Colostomy Care (ED) Additional Instructions: Please follow up with primary care and surgeon in 1-2 days. Return here to the emergency department if you have any worsening symptoms. Is patient prescribed a controlled substance at d/c from ED?: No Referrals: Andres Barbosa MD [Primary Care Provider] - 1-2 days Time of Disposition: 19:38
== END 2019-01-01 20:32 | disposition home or self-care (01) ==
LOC: EC 18:23
DX: Z43.3 Encounter for attention to colostomy (principal); Z87.19 Personal history of other diseases of the digestive system; Z90.49 Acquired absence of other specified parts of digestive tract; Z90.710 Acquired absence of both cervix and uterus; Z79.899 Other long term (current) drug therapy; Z88.6 Allergy status to analgesic agent; Z88.5 Allergy status to narcotic agent
CPT/HCPCS: 99283

== ENCOUNTER 2019-01-09 11:32 | Emergency (ER) | payer OTHER ==
--- NOTE | 2019-01-09 12:22 | ED ---
General Adult HPI - General Chief complaint: Recheck/Abnormal Lab/Rx Stated complaint: colostomy leaking Time Seen by Provider: 01/09/19 12:04 Source: patient, RN notes reviewed, old records reviewed Mode of arrival: ambulatory Limitations: no limitations - History of Present Illness Initial comments: 58-year-old female presents today for evaluation with complaints of colostomy leaking. Patient reports that this was placed by Dr. Mckenzie. She's been using a previous type of bag and adhesive. Visiting nurse recently changed the type of back. She reports that it has not been working well for her skin is causing irritation and is not sticking her skin causing leakage. Patient states that she's used some tape at this time to control the area. Patient states that she has no fevers or chills. Reports normal output from her ostomy. - Related Data Home Medications Medication Instructions Recorded Confirmed Gabapentin [Neurontin] 600 mg PO HS 07/28/18 01/09/19 HYDROcodone/APAP 5-325MG [[place] 1 tab PO Q6HR PRN 07/28/18 01/09/19 5-325] Ibuprofen [Motrin] 400 mg PO DAILY PRN 12/22/18 01/09/19 Allergies Allergy/AdvReac Type Severity Reaction Status Date / Time acetaminophen Allergy Nausea & Verified 01/09/19 14:11 [From Darvocet-N] Vomiting propoxyphene Allergy Nausea & Verified 01/09/19 14:11 [From Darvocet-N] Vomiting Review of Systems ROS Statement: Those systems with pertinent positive or pertinent negative responses have been documented in the HPI. ROS Other: All systems not noted in ROS Statement are negative. Past Medical History Past Medical History: Osteoarthritis (OA) Additional Past Medical History / Comment(s): diverticulitis resulting in colon resection History of Any Multi-Drug Resistant Organisms: None Reported Past Surgical History: Appendectomy, Bowel Resection, Section, Hysterectomy Additional Past Surgical History / Comment(s): incisional hernia repair, bowel resection with temporary colostomy Past Anesthesia/Blood Transfusion Reactions: No Reported Reaction Past Psychological History: Anxiety Smoking Status: Never smoker Past Alcohol Use History: None Reported Past Drug Use History: Cocaine - Past Family History Mother Family Medical History: Congestive Heart Failure (CHF), Diabetes Mellitus, Seizure Disorder Father Family Medical History: COPD Additional Family Medical History / Comment(s): diverticulitis General Exam - General Exam Comments Initial Comments: 58-year-old female. Alert and oriented. No distress. Limitations: no limitations General appearance: alert, in no apparent distress Head exam: Present: atraumatic, normocephalic, normal inspection Eye exam: Present: normal appearance, PERRL, EOMI. Absent: scleral icterus, conjunctival injection, periorbital swelling ENT exam: Present: normal exam Neck exam: Present: normal inspection. Absent: tenderness, meningismus, lymphadenopathy Respiratory exam: Present: normal lung sounds bilaterally. Absent: respiratory distress, wheezes, rales, rhonchi, stridor Cardiovascular Exam: Present: regular rate, normal rhythm, normal heart sounds. Absent: systolic murmur, diastolic murmur, rubs, gallop, clicks GI/Abdominal exam: Present: soft, tenderness, normal bowel sounds, other (Ostomy site. Evidence of leakage around the adhesion site.). Absent: distended, guarding, rebound, rigid Extremities exam: Present: normal inspection, full ROM, normal capillary refill. Absent: tenderness, pedal edema, joint swelling, calf tenderness Back exam: Present: normal inspection Neurological exam: Present: alert, oriented X3, CN II-XII intact Psychiatric exam: Present: normal affect, normal mood Skin exam: Present: warm, dry, intact, normal color. Absent: rash Course Vital Signs 01/09/19 01/09/19 11:34 13:09 Temperature 97.8 F 97.9 F Pulse Rate 65 67 Respiratory 18 16 Rate Blood Pressure 126/66 124/76 O2 Sat by Pulse 95 97 Oximetry - Reevaluation(s) Reevaluation #1: 01/09/19 14:41 Patient had 4 W. nurse who is skilled at replacing ostomy care come to change patient's back. She satisfied with the placement. Patient will be discharged at this time. Medical Decision Making - Medical Decision Making [age] female presents for ostomy care. She's had bleeding around her ostomy site. She reports that she prefers the bags that were given to her from the hospital. At this time we placed an order prospect care. Delay in patient's discharge time was due to lack of supplies in emergency room. He's had be sent up from [facility]. Patient eventually had ostomy supplies and room and we had 4 W. nurse come to replace the ostomy site. Patient tolerated procedure well and is pleased with site care. Patient will be discharged at this time Disposition Clinical Impression: Encounter for ostomy care education Disposition: HOME SELF-CARE Condition: Good Instructions (If sedation given, give patient instructions): Colostomy Care (ED) Additional Instructions: Follow-up with your primary care doctor and visiting nurse. Return to the emergency department if any alarming signs or symptoms occur. Is patient prescribed a controlled substance at d/c from ED?: No Referrals: Andres Barbosa MD [Primary Care Provider] - 1-2 days Time of Disposition: 14:43
[2019-01-09 13:11] VITALS: RESP 16; TEMP 97.9
[2019-01-09 16:10] VITALS: BP 107/67; PULSE 60
== END 2019-01-09 16:11 | disposition home or self-care (01) ==
LOC: EC 11:32
DX: Z43.3 Encounter for attention to colostomy (principal); Z71.89 Other specified counseling; Z79.899 Other long term (current) drug therapy; Z88.5 Allergy status to narcotic agent; Z88.6 Allergy status to analgesic agent; Z90.89 Acquired absence of other organs
CPT/HCPCS: 99283

== ENCOUNTER 2019-01-10 13:05 | Emergency (ER) | payer OTHER ==
--- NOTE | 2019-01-10 13:44 | ED ---
General Adult HPI - General Chief complaint: Recheck/Abnormal Lab/Rx Stated complaint: Colostomy issues Time Seen by Provider: 01/10/19 13:15 Source: patient, RN notes reviewed, old records reviewed Mode of arrival: ambulatory Limitations: no limitations - History of Present Illness Initial comments: This patient's a 38-year-old female who presents emergency department today for evaluation of leaking ostomy bag. Patient spent 4 hours in emergency department yesterday for similar complaint. She was given a new ostomy bag at that time. Patient reports that she went home and started to leak. She had her visiting nurse come and change the bag. Patient reports that that bag started to leak today, and she was told to come here from her visiting nurse and was told that she needs to stay until the bag stopped leaking. Patient states that she is has leakage around her umbilicus area from the colostomy bag. Patient states that she's been holding towels to control the leaking. He is supposed to see Dr. loza on to have her shahram removed from her incision. - Related Data Home Medications Medication Instructions Recorded Confirmed Gabapentin [Neurontin] 600 mg PO HS 07/28/18 01/10/19 HYDROcodone/APAP 5-325MG [[place] 1 tab PO Q6HR PRN 07/28/18 01/10/19 5-325] Ibuprofen [Motrin] 400 mg PO DAILY PRN 12/22/18 01/10/19 Allergies Allergy/AdvReac Type Severity Reaction Status Date / Time acetaminophen Allergy Nausea & Verified 01/10/19 15:54 [From Darvocet-N] Vomiting propoxyphene Allergy Nausea & Verified 01/10/19 15:54 [From Darvocet-N] Vomiting Review of Systems ROS Statement: Those systems with pertinent positive or pertinent negative responses have been documented in the HPI. ROS Other: All systems not noted in ROS Statement are negative. Past Medical History Past Medical History: Osteoarthritis (OA) Additional Past Medical History / Comment(s): diverticulitis resulting in colon resection History of Any Multi-Drug Resistant Organisms: None Reported Past Surgical History: Appendectomy, Bowel Resection, Section, Hysterectomy Additional Past Surgical History / Comment(s): incisional hernia repair, bowel resection with temporary colostomy Past Anesthesia/Blood Transfusion Reactions: No Reported Reaction Past Psychological History: Anxiety Smoking Status: Never smoker Past Alcohol Use History: None Reported Past Drug Use History: Cocaine - Past Family History Mother Family Medical History: Congestive Heart Failure (CHF), Diabetes Mellitus, Seizure Disorder Father Family Medical History: COPD Additional Family Medical History / Comment(s): diverticulitis General Exam - General Exam Comments Initial Comments: 58-year-old female. Limitations: no limitations General appearance: alert, in no apparent distress Head exam: Present: atraumatic, normocephalic, normal inspection Eye exam: Present: normal appearance, PERRL, EOMI. Absent: scleral icterus, conjunctival injection, periorbital swelling ENT exam: Present: normal exam, mucous membranes moist Neck exam: Present: normal inspection. Absent: tenderness, meningismus, lymphadenopathy Respiratory exam: Present: normal lung sounds bilaterally. Absent: respiratory distress, wheezes, rales, rhonchi, stridor Cardiovascular Exam: Present: regular rate, normal rhythm, normal heart sounds. Absent: systolic murmur, diastolic murmur, rubs, gallop, clicks GI/Abdominal exam: Present: soft, other (Patient has evidence of leaking ostomy site near her umbilicus area. Patient's surrounding skin is erythematous, raw- appearing) Extremities exam: Present: normal inspection, full ROM, normal capillary refill. Absent: tenderness, pedal edema, joint swelling, calf tenderness Back exam: Present: normal inspection Neurological exam: Present: alert, oriented X3, CN II-XII intact Psychiatric exam: Present: normal affect, normal mood Skin exam: Present: warm, dry, intact, normal color. Absent: rash Course Vital Signs 01/10/19 13:16 Temperature 97.5 F L Pulse Rate 74 Respiratory 18 Rate Blood Pressure 142/91 O2 Sat by Pulse 96 Oximetry Medical Decision Making - Medical Decision Making 58-year-old female presents emergency room today complaints of ostomy site leaking. Was here yesterday for similar complaints. Patient has some erythema around the ostomy care site. Patient had dressing changed by ostomy care nurse from [facility]. Shortly procedure well. We'll discharge. I also discussed with Dr. Urbina about patient's induration around the area. He stated to using toxoid over the area and have the Patient follow-up with him on Friday. Disposition Clinical Impression: Colostomy care Disposition: HOME SELF-CARE Condition: Good Instructions (If sedation given, give patient instructions): Colostomy Care (ED) Additional Instructions: Follow-up with your visiting nurse and Dr. Loza. Is patient prescribed a controlled substance at d/c from ED?: No Referrals: Andres Barbosa MD [Primary Care Provider] - 1-2 days Time of Disposition: 17:19
[2019-01-10 17:47] VITALS: BP 114/88; PULSE 66; RESP 16; TEMP 98
== END 2019-01-10 17:47 | disposition home or self-care (01) ==
LOC: EC 13:05
DX: K94.03 Colostomy malfunction (principal); F41.9 Anxiety disorder, unspecified; Z88.5 Allergy status to narcotic agent; Z88.6 Allergy status to analgesic agent; Z79.899 Other long term (current) drug therapy; Z90.49 Acquired absence of other specified parts of digestive tract; Z83.79 Family history of other diseases of the digestive system
CPT/HCPCS: 99283

== ENCOUNTER → 2019-03-17 | Outpatient (CLI) | payer OTHER ==
[2019-03-17 15:17] LABS: HCT 40.7 % (34.0-46.0); HGB 13.3 gm/dL (11.4-16.0); MCH 26.1 pg (25.0-35.0); MCHC 32.6 g/dL (31.0-37.0); MCV 80.2 fL (80.0-100.0); Mean Platelet Volume 6.9; Platelet Count 353 k/uL (150-450); RBC 5.08 m/uL (3.80-5.40); RDW 14.9 % (11.5-15.5); WBC 11.7 k/uL (3.8-10.6)
== END | disposition home or self-care (01) ==
LOC: LABPAT 14:42
PROVIDERS: ATTEND Surgery
DX: Z01.818 Encounter for other preprocedural examination (principal); K57.32 Diverticulitis of large intestine without perforation or abscess without bleeding
CPT/HCPCS: 36415; 80051; 85027

== ENCOUNTER 2019-03-22 07:59 | Inpatient (IN) | payer OTHER ==
[2019-03-16 12:46] VITALS: BMI 41.1
[~2019-03-22 07:59] MED LIST changes: +DEXAMETHASONE SOD PHOSPHATE 10 MG/ML 1 ML VIAL IV ONE; +HYDROmorphone 0.5 MG/0.5 ML SYRINGE IVP PRN; +ONDANSETRON 4 MG/2 ML VIAL IVP ONE; +SCOPOLAMINE 1.5MG/72HR PATCH TRANSDERM ONE; -ceFAZolin IN SWFI 2 GM/20 ML SYRINGE IVP ONE
[2019-03-22] MEDS ORDERED: ACETAMINOPHEN TAB 500 MG TAB PO ONE (08:58)
[2019-03-22] MEDS ORDERED: MELOXICAM 7.5 MG TAB PO ONE (08:58)
[2019-03-22] MEDS ORDERED: ALVIMOPAN 12 MG CAPSULE PO ONE (08:58)
[2019-03-22] MEDS: LACTATED RINGERS 1,000 ML IV SCH (09:08)
[2019-03-22] MEDS: MIDAZOLAM 2 MG/2 ML VIAL IV PRN ×2 (09:19→09:21)
[2019-03-22] MEDS ORDERED: fentaNYL (PF) 50 MCG/ML 2 ML AMP IVP ONE ×2 (09:27→09:31)
[2019-03-22] MEDS ORDERED: NALOXONE 0.4 MG/ML 1 ML VIAL IV PRN (09:50)
--- NOTE | 2019-03-22 10:17 | P.GSHP ---
History of Present Illness H&P Date: 03/22/19 Chief Complaint: History of diverticulitis This a 58-year-old female who presents today for reversal of protective ileostomy. Patient has history of diverticulitis. She underwent low anterior resection with placement protective ileostomy several months ago. She presents today for reversal of ileostomy. Past Medical History Past Medical History: Osteoarthritis (OA) Additional Past Medical History / Comment(s): diverticulitis resulting in colon resection w/ ileostomy, irritation @ stoma. Rt trigger fingers. RLS History of Any Multi-Drug Resistant Organisms: None Reported Past Surgical History: Appendectomy, Bowel Resection, Section, Hernia Repair, Hysterectomy Additional Past Surgical History / Comment(s): Incisional hernia repair 07/2018, Colonoscopy, Bowel Resection with temporary ileostomy 12/25/18 Past Anesthesia/Blood Transfusion Reactions: No Reported Reaction Smoking Status: Former smoker - Past Family History Mother Family Medical History: Congestive Heart Failure (CHF), Diabetes Mellitus, Seizu re Disorder Father Family Medical History: COPD Additional Family Medical History / Comment(s): diverticulitis Medications and Allergies Home Medications Medication Instructions Recorded Confirmed Type Gabapentin [Neurontin] 600 mg PO HS 07/28/18 03/22/19 History HYDROcodone/APAP 5-325MG [[place] 1 tab PO Q6HR PRN 07/28/18 03/22/19 History 5-325] Ibuprofen [Motrin] 400 mg PO Q6H PRN 12/22/18 03/22/19 History Escitalopram [Lexapro] 10 mg PO DAILY 03/16/19 03/22/19 History Allergies Allergy/AdvReac Type Severity Reaction Status Date / Time propoxyphene Allergy Nausea & Verified 03/22/19 09:01 [From Darvocet-N] Vomiting Surgical - Exam Vital Signs Temp Pulse Resp BP Pulse Ox 97.7 F 72 16 133/86 95 03/22/19 08:45 03/22/19 08:45 03/22/19 08:45 03/22/19 08:45 03/22/19 08:45 - General well developed, well nourished, no distress - Eyes PERRL - ENT normal pinna - Neck no masses - Respiratory normal expansion - Cardiovascular Rhythm: regular - Abdomen Ileostomy right abdominal wall Abdomen: soft, non tender Assessment and Plan Assessment: History of diverticulitis. History of low anterior section with protective ileostomy. Patient will undergo reversal of ileostomy. She's been reversed surgery including anastomotic leak.
[2019-03-22] MEDS ORDERED: PROPOFOL 10 MG/ML 20 ML VIAL IV ONE (10:49)
[2019-03-22] MEDS ORDERED: LIDOCAINE 1% INJ 10MG/ML (20 ML MDV) ONE (10:49)
[2019-03-22] MEDS ORDERED: NEOSTIGMINE 1 MG/ML 10 ML VIAL ONE (10:49)
[2019-03-22] MEDS ORDERED: SUCCINYLCHOLINE CHLORIDE VIAL 200 MG/10 ML VIAL IV ONE (10:49)
[2019-03-22] MEDS ORDERED: ROCURONIUM BROMIDE 10 MG/ML 10 ML VIAL IV ONE (10:49)
[2019-03-22] MEDS ORDERED: PHENYLEPHRINE-0.9% NACL SYG 1 MG/10 ML SYRINGE ONE (10:49)
[2019-03-22] MEDS ORDERED: MIDAZOLAM 2 MG/2 ML VIAL ONE (10:49)
[2019-03-22] MEDS ORDERED: GLYCOPYRROLATE 0.2 MG/ML 2 ML VIAL ONE (10:49)
[2019-03-22] MEDS ORDERED: fentaNYL (PF) 50 MCG/ML 2 ML AMP ONE (10:49)
[2019-03-22] MEDS ORDERED: LACTATED RINGERS 1,000 ML IV ONE ×2 (11:49→15:15)
[2019-03-22] MEDS ORDERED: ONDANSETRON 4 MG/2 ML VIAL IVP PRN (12:55)
--- NOTE | 2019-03-22 13:10 | P.OP ---
Date of Procedure: 03/22/19 Preoperative Diagnosis: History of diverticulitis Postoperative Diagnosis: History of diverticulitis Procedure(s) Performed: Exploratory laparotomy Lysis of adhesions Repair of incisional hernia Reversal of ileostomy Anesthesia: NITHIN Surgeon: Anuj Mckenzie Estimated Blood Loss (ml): 100 Pathology: other (Small bowel) Condition: stable Disposition: PACU Description of Procedure: Patient's placed on the operative table in the supine position. She received IV sedation and general anesthesia. Her abdomen was prepped and draped usual fashion. The Iob[place] drape was used for the ileostomy. The abdomen was entered through a midline incision. Upon entering the abdomen there is adhesions noted these were lysed using sharp dissection approximately 20 minutes of operative time used to lyse adhesions. There is also incisional hernia located at the inferior portion of the incision. The ileostomy was then transected at the fascial level using the GI stapler. And then the distal limb of the ileum was found in the pelvis and this was dissected free using sharp dissection. A [id number] functional end-to-end staple anastomosis created between the proximal distal small bowel. Using the MAURILIO and TA staplers. The abdomen was irrigated there is no bleeding seen. The fascia was closed loop number PDS suture. The ileostomy site was then dissected and sent to pathology. The fascial defect was closed with 0 Vicryl suture. The skin was closed details. Patient top she will was sent to recovery room stable condition.
[2019-03-22] MEDS ORDERED: diphenhydrAMINE 50 MG/ML 1 ML VIAL IVP ONE ×2 (14:07→14:23)
[2019-03-22] MEDS: diphenhydrAMINE 50 MG/ML 1 ML VIAL IVP PRN (16:35)
[2019-03-22 16:49] LABS: Basophils % (A) 0 %; Eosinophils # (A) 0.1 k/uL (0-0.7); Eosinophils % (A) 1 %; HCT 40.7 % (34.0-46.0); HGB 13.3 gm/dL (11.4-16.0); Lymphocytes % (A) 5 %; MCH 26.7 pg (25.0-35.0); MCHC 32.7 g/dL (31.0-37.0); MCV 81.6 fL (80.0-100.0); Mean Platelet Volume 7.2; Monocytes # (A) 0.4 k/uL (0-1.0); Monocytes % (A) 2 %; Neutrophils # (A) 17.4 k/uL (1.3-7.7); Neutrophils % (A) 92 %; Platelet Count 340 k/uL (150-450); RBC 4.99 m/uL (3.80-5.40); RDW 15.1 % (11.5-15.5)
[2019-03-22 17:07] LABS: Calcium 9.4 mg/dL (8.4-10.2); Potassium 5.7 mmol/L (3.5-5.1)
[2019-03-22] MEDS: D5-0.45% NACL WITH KCL 20MEQ/L 1,000 ML IV SCH ×2 (18:02→21:34)
[2019-03-22] MEDS: HEPARIN SODIUM,PORCINE 5,000 UNIT/ML 1 ML VIAL SQ SCH ×2 (18:02→23:45)
[2019-03-22] MEDS: DEXTROSE 5%-0.45% NACL 1,000 ML IV SCH (21:37)
[2019-03-22] MEDS: GABAPENTIN 300 MG CAP PO SCH (21:39)
[2019-03-22] MEDS: ROPIVACAINE 250 MG, HYDROMORPHONE (PF) 5 MG in SODIUM CHLORIDE 0.9% 200 ML EPIDURAL PRN (21:43)
[2019-03-23] MEDS: diphenhydrAMINE 50 MG/ML 1 ML VIAL IVP PRN ×3 (00:04→19:42)
[2019-03-23] MEDS: DEXTROSE 5%-0.45% NACL 1,000 ML IV SCH ×3 (03:38→18:57)
[2019-03-23] MEDS: D5-0.45% NACL WITH KCL 20MEQ/L 1,000 ML IV SCH ×3 (04:54→22:44)
[2019-03-23] MEDS: LACTATED RINGERS 1,000 ML IV SCH (04:54)
[2019-03-23] MEDS: HEPARIN SODIUM,PORCINE 5,000 UNIT/ML 1 ML VIAL SQ SCH ×2 (08:37→17:32)
[2019-03-23] MEDS: ALVIMOPAN 12 MG CAPSULE PO SCH ×2 (08:37→22:43)
[2019-03-23] MEDS: ESCITALOPRAM 10 MG TAB PO SCH (08:37)
[2019-03-23] MEDS: ROPIVACAINE 250 MG, HYDROMORPHONE (PF) 5 MG in SODIUM CHLORIDE 0.9% 200 ML EPIDURAL PRN ×2 (08:45→10:28)
--- NOTE | 2019-03-23 09:27 | P.PN ---
Progress Note - Text Anesthesia POD 1652. Status Post ileostomy reversal under general endotracheal anesthesia with an epidrual catheter placed at T 11 for post surgical pain releif. VAS (2, 4) with Ropivicaine 0.1 % and Dilaudid 20 mcg / cc running at 7 cc / hr. Lower extremity strength (4/4). No sedation. Site looks OK.
--- NOTE | 2019-03-23 13:25 | P.CONS ---
History of Present Illness - Reason for Consult Consult date: 03/23/19 Medical management Requesting physician: Anuj Mckenzie - Chief Complaint Diverticular disease with reversal ileostomy. - History of Present Illness This is a history and physical/consultation on a 58-year-old white female with history of depression and insomnia who has had history of diverticular disease. She essentially admitted and had lysis of adhesions and reversal of ileostomy. The patient is seen with postop abdominal pain. Pulmonary toilet has been instituted. No sniffing nausea, vomiting or diarrhea stated. Review of Systems Constitutional: Denies chills, Denies fever Eyes: denies blurred vision, denies pain Ears, nose, mouth and throat: Denies headache, Denies sore throat Cardiovascular: Denies chest pain, Denies shortness of breath Respiratory: Denies cough Gastrointestinal: Reports as per HPI Genitourinary: Denies dysuria, Denies hematuria Past Medical History Past Medical History: Osteoarthritis (OA) Additional Past Medical History / Comment(s): diverticulitis resulting in colon resection w/ ileostomy, irritation @ stoma. Rt trigger fingers. RLS History of Any Multi-Drug Resistant Organisms: None Reported Past Surgical History: Appendectomy, Bowel Resection, Section, Hernia Repair, Hysterectomy Additional Past Surgical History / Comment(s): Incisional hernia repair 07/2018, Colonoscopy, Bowel Resection with temporary ileostomy 12/25/18 Past Anesthesia/Blood Transfusion Reactions: No Reported Reaction Smoking Status: Former smoker - Past Family History Mother Family Medical History: Congestive Heart Failure (CHF), Diabetes Mellitus, Seizure Disorder Father Family Medical History: COPD Additional Family Medical History / Comment(s): diverticulitis Medications and Allergies Home Medications Medication Instructions Recorded Confirmed Type HYDROcodone/APAP 5-325MG [[place] 1 tab PO Q6HR PRN 07/28/18 03/22/19 History 5-325] Ibuprofen [Motrin] 400 mg PO Q6H PRN 12/22/18 03/22/19 History Escitalopram [Lexapro] 10 mg PO DAILY 03/16/19 03/22/19 History Gabapentin 600 mg PO HS 03/22/19 03/22/19 History Allergies Allergy/AdvReac Type Severity Reaction Status Date / Time propoxyphene Allergy Nausea & Verified 03/22/19 16:51 [From Darvocet-N] Vomiting Physical Exam Vitals: Vital Signs Temp Pulse Pulse Resp BP Pulse Ox 03/23/19 10:41 96 03/23/19 06:59 97.8 F 76 16 153/83 99 03/23/19 00:00 99.3 F 102 H 15 120/79 96 03/22/19 19:09 98.0 F 99 16 126/85 96 03/22/19 18:00 81 133/72 96 03/22/19 17:15 75 120/78 96 03/22/19 17:00 76 121/86 97 03/22/19 16:45 84 16 129/81 89 L 03/22/19 16:30 98.7 F 91 16 139/83 96 03/22/19 15:15 68 14 127/71 98 03/22/19 14:45 68 18 134/72 03/22/19 14:15 77 15 142/78 99 03/22/19 13:45 65 18 132/71 98 03/22/19 13:30 69 16 132/61 98 Intake and Output 03/22/19 03/23/19 03/23/19 22:59 06:59 14:59 Intake Total 400 1457.6 283.3 Output Total 800 Balance 400 657.6 283.3 Intake: Intake, IV Titration 250 1307.6 33.3 Amount Dextrose 5%-0.45% NaCl 1, 250 1250 000 ml @ 125 mls/hr IV . [facility]H [facility] Rx#:[id number] Ropivacaine 250 mg 57.6 33.3 Hydromorphone (Pf) 5 mg In Sodium Chloride 0.9% 200 ml @ Per Protocol EPIDURAL .Q0M PRN Rx#: [id number] Oral 150 150 250 Output: Urine 800 Other: Voiding Method Indwelling Catheter Indwelling Catheter Indwelling Catheter - Constitutional General appearance: obese - EENT Eyes: EOMI - Neck Neck: no lymphadenopathy - Respiratory Respiratory: bilateral: CTA - Cardiovascular Rhythm: regular Heart sounds: normal: S1, S2 Abnormal Heart Sounds: no S3 Gallop - Gastrointestinal General gastrointestinal: decreased bowel sounds, soft, tenderness - Integumentary Integumentary: no cellulitis Results CBC & Chem 7: 03/22/19 16:38 03/22/19 16:38 Labs: Abnormal Lab Results - Last 24 Hours (Table) 03/22/19 03/22/19 Range/Units 16:38 16:38 WBC 19.0 H (3.8-10.6) k/uL Neutrophils # 17.4 H (1.3-7.7) k/uL Potassium 5.7 H (3.5-5.1) mmol/L Glucose 117 H (74-99) mg/dL Assessment and Plan (1) Depressed Current Visit: Yes Status: Acute Code(s): F32.9 - MAJOR DEPRESSIVE DISORDER, SINGLE EPISODE, UNSPECIFIED SNOMED Code(s): 33931045 (2) Primary insomnia Current Visit: Yes Status: Acute Code(s): F51.01 - PRIMARY INSOMNIA SNOMED Code(s): 7681775 (3) Diverticulitis large intestine Current Visit: Yes Status: Acute Code(s): K57.32 - DVTRCLI OF LG INT W/O PERFORATION OR ABSCESS W/O BLEEDING SNOMED Code(s): 4015692 (4) Abdominal pain Current Visit: No Status: Acute Code(s): R10.9 - UNSPECIFIED ABDOMINAL PAIN SNOMED Code(s): 52633902 (5) Hernia of anterior abdominal wall Current Visit: No Status: Acute Code(s): K43.9 - VENTRAL HERNIA WITHOUT OBSTRUCTION OR GANGRENE SNOMED Code(s): 342361477 Plan: Continue standard postoperative care. Pulmonary toilet. Check CBC and CMP in a.m. Reconcile home medications once nothing by mouth as listed.
--- NOTE | 2019-03-23 15:15 | P.PN ---
Subjective Progress Note Date: 03/23/19 CHIEF COMPLAINT: Reversal of ileostomy HISTORY OF PRESENT ILLNESS: 58-year-old female who underwent exploratory laparotomy, lysis of adhesions, repair of incisional hernia, and reversal of ileostomy. Postoperative day #1. Patient seen and examined at this morning at the bedside. Patient reports her pain is tolerable. Epidural is infusing at 7 mL an hour. Mason catheter noted. Patient is tolerating clear liquid diet. She denies nausea or vomiting. She reports belching. Denies passing flatus. PHYSICAL EXAM: VITAL SIGNS: Reviewed. GENERAL: Well-developed in no acute distress. HEENT: No sclera icterus. Extraocular movements grossly intact. Moist buccal mucosa. Head is atraumatic, normocephalic. ABDOMEN: Soft. Nondistended. Dressing clean dry and intact. Hypoactive bowel sounds. Abdominal binder present. NEUROLOGIC: Alert and oriented. Cranial nerves II through XII grossly intact. ASSESSMENT: 1. Status post exploratory laparotomy, lysis of adhesions, repair of incisional hernia, and reversal of ileostomy PLAN: 1. Continue clear liquid diet. Await return of bowel function 2. Incentive spirometry 3. Activity as tolerated. Patient encouraged to be out of bed and ambulatory today. 4. Pain control. Continue epidural. Discontinue postop day #3 5. Continue Mason catheter until epidural is discontinued 6. CBC and CMP Nurse practitioner note has been reviewed by physician. Signing provider agrees with the documented findings, assessment, and plan of care. Objective - Vital Signs Vital signs: Vital Signs Temp 99.0 F 03/23/19 14:28 Pulse 73 03/23/19 14:28 Resp 17 03/23/19 14:28 BP 130/82 03/23/19 14:28 Pulse Ox 93 L 03/23/19 14:28 Intake & Output 03/22/19 03/23/19 03/23/19 18:59 06:59 18:59 Intake Total 2150 1857.6 283.3 Output Total 738 453 1584 Balance 1820 1057.6 -991.7 Intake: IV 2150 Intake, IV Titration 1557.6 33.3 Amount Dextrose 5%-0.45% NaCl 1, 1500 000 ml @ 125 mls/hr IV . Q8H [facility] Rx#:[id number] Ropivacaine 250 mg 57.6 33.3 Hydromorphone (Pf) 5 mg In Sodium Chloride 0.9% 200 ml @ Per Protocol EPIDURAL .Q0M PRN Rx#: [id number] Oral 300 250 Output: Urine 661 806 0171 Uretheral (Mason) 1000 Estimated Blood Loss 100 Other: Voiding Method Indwelling Catheter Indwelling Catheter - Labs CBC & Chem 7: 03/22/19 16:38 03/22/19 16:38 Labs: Abnormal Lab Results - Last 24 Hours (Table) 03/22/19 03/22/19 Range/Units 16:38 16:38 WBC 19.0 H (3.8-10.6) k/uL Neutrophils # 17.4 H (1.3-7.7) k/uL Potassium 5.7 H (3.5-5.1) mmol/L Glucose 117 H (74-99) mg/dL
[2019-03-23 15:48] LABS: Anisocytosis Slight; Basophils # (A) 0.1 k/uL (0-0.2); Basophils % (A) 0 %; Eosinophils # (A) 0.6 k/uL (0-0.7); Eosinophils % (A) 4 %; HCT 36.9 % (34.0-46.0); Lymphocytes # (A) 3.1 k/uL (1.0-4.8); Lymphocytes % (A) 20 %; MCH 27.2 pg (25.0-35.0); MCHC 32.5 g/dL (31.0-37.0); MCV 83.8 fL (80.0-100.0); Mean Platelet Volume 7.6; Monocytes % (A) 6 %; Neutrophils # (A) 10.5 k/uL (1.3-7.7); Neutrophils % (A) 68 %; Platelet Count 306 k/uL (150-450); RDW 16.2 % (11.5-15.5); WBC 15.5 k/uL (3.8-10.6)
[2019-03-23 15:56] LABS: African American GFR (CKD) >90 (>60 ml/min/1.73 sqM); Anion Gap 8 mmol/L; Blood Urea Nitrogen 11 mg/dL (7-17); Calcium 8.3 mg/dL (8.4-10.2); Carbon Dioxide 26 mmol/L (22-30); Chloride 102 mmol/L (98-107); Glucose 124 mg/dL (74-99); Non-African American GFR(CKD) 86 (>60 ml/min/1.73 sqM); Potassium 4.1 mmol/L (3.5-5.1); Sodium 136 mmol/L (137-145)
[2019-03-23] MEDS: GABAPENTIN 300 MG CAP PO SCH (22:44)
[2019-03-24] MEDS: HEPARIN SODIUM,PORCINE 5,000 UNIT/ML 1 ML VIAL SQ SCH ×3 (00:21→15:53)
[2019-03-24] MEDS: DEXTROSE 5%-0.45% NACL 1,000 ML IV SCH ×3 (02:12→21:53)
[2019-03-24] MEDS: diphenhydrAMINE 50 MG/ML 1 ML VIAL IVP PRN ×4 (03:57→21:56)
[2019-03-24] MEDS: D5-0.45% NACL WITH KCL 20MEQ/L 1,000 ML IV SCH ×3 (05:01→21:54)
[2019-03-24] MEDS: LACTATED RINGERS 1,000 ML IV SCH (05:02)
--- NOTE | 2019-03-24 07:38 | P.PN ---
Subjective Progress Note Date: 03/24/19 This is a continue present on a patient had reversal ileostomy secondary to diverticular disease. Hernia repair is also noted. The patient states no flatus as this time. However, she is ambulating and seemingly tolerating her liquid. Objective - Vital Signs Vital signs: Vital Signs Temp 98.8 F 03/23/19 23:00 Pulse 60 03/23/19 23:00 Resp 16 03/23/19 23:00 BP 103/61 03/23/19 23:00 Pulse Ox 94 L 03/23/19 23:00 Intake & Output 03/23/19 03/24/19 03/24/19 18:59 06:59 18:59 Intake Total 583.3 355.5 Output Total 1275 1400 Balance -691.7 -1044.5 Intake: Intake, IV Titration 33.3 355.5 Amount Dextrose 5%-0.45% NaCl 1, 250 000 ml @ 125 mls/hr IV . Q8H [facility] Rx#:[id number] Ropivacaine 250 mg 33.3 105.5 Hydromorphone (Pf) 5 mg In Sodium Chloride 0.9% 200 ml @ Per Protocol EPIDURAL .Q0M PRN Rx#: [id number] Oral 550 Output: Urine 1275 1400 Uretheral (Mason) 1000 Other: Voiding Method Indwelling Catheter Indwelling Catheter - Constitutional General appearance: Present: obese - EENT Eyes: Absent: abnormal pupil - Neck Neck: Absent: lymphadenopathy - Respiratory Respiratory: bilateral: CTA - Cardiovascular Rhythm: regular Heart sounds: normal: S1, S2 Abnormal Heart Sounds: Absent: S3 Gallop - Gastrointestinal General gastrointestinal: Present: decreased bowel sounds, soft, tenderness - Psychiatric Psychiatric: Present: A&O x's 3, appropriate affect, intact judgment & insight - Labs CBC & Chem 7: 03/23/19 15:19 03/23/19 15:19 Labs: Abnormal Lab Results - Last 24 Hours (Table) 03/23/19 03/23/19 Range/Units 15:19 15:19 WBC 15.5 H (3.8-10.6) k/uL RDW 16.2 H (11.5-15.5) % Neutrophils # 10.5 H (1.3-7.7) k/uL Sodium 136 L (137-145) mmol/L Glucose 124 H (74-99) mg/dL Calcium 8.3 L (8.4-10.2) mg/dL Assessment and Plan (1) Depressed Current Visit: Yes Status: Acute Code(s): F32.9 - MAJOR DEPRESSIVE DISORDER, SINGLE EPISODE, UNSPECIFIED SNOMED Code(s): 68611261 (2) Primary insomnia Current Visit: Yes Status: Acute Code(s): F51.01 - PRIMARY INSOMNIA SNOMED Code(s): 3829546 (3) Diverticulitis large intestine Current Visit: Yes Status: Acute Code(s): K57.32 - DVTRCLI OF LG INT W/O PERFORATION OR ABSCESS W/O BLEEDING SNOMED Code(s): 7040174 (4) Abdominal pain Current Visit: No Status: Acute Code(s): R10.9 - UNSPECIFIED ABDOMINAL PAIN SNOMED Code(s): 95726802 (5) Hernia of anterior abdominal wall Current Visit: No Status: Acute Code(s): K43.9 - VENTRAL HERNIA WITHOUT OBSTRUCTION OR GANGRENE SNOMED Code(s): 432986160 Plan: Continue postop pulmonary toilet and appropriate GI prophylaxis. Otherwise, we'll continue follow with general surgery. Check CBC and CMP in a.m. Time with Patient: Less than 30
[2019-03-24 08:19] LABS: Anisocytosis Slight; HGB 11.7 gm/dL (11.4-16.0); MCH 27.2 pg (25.0-35.0); MCHC 32.4 g/dL (31.0-37.0); Mean Platelet Volume 7.3; Platelet Count 288 k/uL (150-450); RBC 4.28 m/uL (3.80-5.40); WBC 13.3 k/uL (3.8-10.6)
[2019-03-24] MEDS: ALVIMOPAN 12 MG CAPSULE PO SCH ×2 (08:36→21:54)
[2019-03-24] MEDS: ESCITALOPRAM 10 MG TAB PO SCH (08:36)
[2019-03-24 08:38] LABS: ALT 15 U/L (9-52); AST 15 U/L (14-36); African American GFR (CKD) >90 (>60 ml/min/1.73 sqM); Albumin 3.1 g/dL (3.5-5.0); Alkaline Phosphatase 81 U/L (38-126); Anion Gap 5 mmol/L; Blood Urea Nitrogen 8 mg/dL (7-17); Calcium 8.4 mg/dL (8.4-10.2); Carbon Dioxide 30 mmol/L (22-30); Chloride 102 mmol/L (98-107); Glucose 120 mg/dL (74-99); Non-African American GFR(CKD) 82 (>60 ml/min/1.73 sqM); Potassium 4.4 mmol/L (3.5-5.1); Sodium 137 mmol/L (137-145); Total Bilirubin 0.5 mg/dL (0.2-1.3); Total Protein 6.1 g/dL (6.3-8.2)
--- NOTE | 2019-03-24 11:58 | P.PN ---
Progress Note - Text Progress Note Date: 03/24/19 Patient without complaints. Mild pain. Epidural @ 7 ml/hr. Denies headache or weakness. Ambulating. A/P POD # 2 s/p ileostomy reversal - doing well - may increase epidural if increased pain (pt declined at this time)
--- NOTE | 2019-03-24 12:13 | P.PN ---
Subjective Progress Note Date: 03/24/19 CHIEF COMPLAINT: Reversal of ileostomy HISTORY OF PRESENT ILLNESS: 58-year-old female who underwent exploratory laparotomy, lysis of adhesions, repair of incisional hernia, and reversal of ileostomy. Postoperative day #2. Patient seen and examined at this morning at the bedside. Patient reports no pain to lower half of abdomen, but is complaining of significant pain to upper half of abdomen. Epidural infusing at 7cc/hr. she denies passing flatus. She continues to have belching. Denies nausea or vomiting. Tolerating clear liquid diet. WBC 13.3. Hemoglobin 11.7. PHYSICAL EXAM: VITAL SIGNS: Reviewed. GENERAL: Well-developed in no acute distress. HEENT: No sclera icterus. Extraocular movements grossly intact. Moist buccal mucosa. Head is atraumatic, normocephalic. ABDOMEN: Soft. Nondistended. Dressing intact with shadowing to upper aspect. Hypoactive bowel sounds. Abdominal binder present. NEUROLOGIC: Alert and oriented. Cranial nerves II through XII grossly intact. ASSESSMENT: 1. Status post exploratory laparotomy, lysis of adhesions, repair of incisional hernia, and reversal of ileostomy PLAN: 1. Continue clear liquid diet. Await return of bowel function 2. Incentive spirometry 3. Activity as tolerated. Patient encouraged to be out of bed and ambulatory. 4. Pain control. Continue epidural. Discontinue postop day #3. Epidural increased to 8cc/hr to see if upper abdominal pain improves. Epidural is at T11. If no improvement, patient may require additional IVP medications if epidural is not covering upper abdominal pain 5. Continue Mason catheter until epidural is discontinued Nurse practitioner note has been reviewed by physician. Signing provider agrees with the documented findings, assessment, and plan of care. Objective - Vital Signs Vital signs: Vital Signs Temp 98.2 F 03/24/19 07:00 Pulse 68 03/24/19 07:00 Resp 16 03/23/19 23:00 BP 120/74 03/24/19 07:00 Pulse Ox 96 03/24/19 07:00 Intake & Output 03/23/19 03/24/19 03/24/19 18:59 06:59 18:59 Intake Total 583.3 355.5 35.933 Output Total 1275 1400 Balance -691.7 -1044.5 35.933 Intake: Intake, IV Titration 33.3 355.5 35.933 Amount Dextrose 5%-0.45% NaCl 1, 250 000 ml @ 125 mls/hr IV . Q8H [facility] Rx#:[id number] Ropivacaine 250 mg 33.3 105.5 35.933 Hydromorphone (Pf) 5 mg In Sodium Chloride 0.9% 200 ml @ Per Protocol EPIDURAL .Q0M PRN Rx#: [id number] Oral 550 Output: Urine 1275 1400 Uretheral (Mason) 1000 Other: Voiding Method Indwelling Catheter Indwelling Catheter Indwelling Catheter - Labs CBC & Chem 7: 03/24/19 08:00 03/24/19 08:00 Labs: Abnormal Lab Results - Last 24 Hours (Table) 03/23/19 03/23/19 03/24/19 Range/Units 15:19 15:19 08:00 WBC 15.5 H 13.3 H (3.8-10.6) k/uL RDW 16.2 H 16.0 H (11.5-15.5) % Neutrophils # 10.5 H (1.3-7.7) k/uL Sodium 136 L (137-145) mmol/L Glucose 124 H (74-99) mg/dL Calcium 8.3 L (8.4-10.2) mg/dL Total Protein (6.3-8.2) g/dL Albumin (3.5-5.0) g/dL 03/24/19 Range/Units 08:00 WBC (3.8-10.6) k/uL RDW (11.5-15.5) % Neutrophils # (1.3-7.7) k/uL Sodium (137-145) mmol/L Glucose 120 H (74-99) mg/dL Calcium (8.4-10.2) mg/dL Total Protein 6.1 L (6.3-8.2) g/dL Albumin 3.1 L (3.5-5.0) g/dL
[2019-03-24] MEDS: ROPIVACAINE 250 MG, HYDROMORPHONE (PF) 5 MG in SODIUM CHLORIDE 0.9% 200 ML EPIDURAL PRN (16:17)
[2019-03-24] MEDS: ONDANSETRON 4 MG/2 ML VIAL IVP PRN (18:59)
[2019-03-24] MEDS: GABAPENTIN 300 MG CAP PO SCH (21:54)
[2019-03-25] MEDS: HEPARIN SODIUM,PORCINE 5,000 UNIT/ML 1 ML VIAL SQ SCH ×3 (00:07→16:10)
[2019-03-25] MEDS: D5-0.45% NACL WITH KCL 20MEQ/L 1,000 ML IV SCH ×3 (04:17→23:57)
[2019-03-25] MEDS: LACTATED RINGERS 1,000 ML IV SCH (05:24)
[2019-03-25] MEDS: DEXTROSE 5%-0.45% NACL 1,000 ML IV SCH ×3 (05:38→19:52)
--- NOTE | 2019-03-25 07:57 | P.PN ---
Subjective This is a continue present on a patient had reversal ileostomy secondary to diverticular disease. Hernia repair is also noted. The patient states no flatus as this time. However, she is ambulating and seemingly tolerating her liquid. Postop day #3 Objective - Vital Signs Vital signs: Vital Signs Temp 98.2 F 03/25/19 07:00 Pulse 69 03/25/19 07:00 Resp 16 03/25/19 07:00 BP 100/68 03/25/19 07:00 Pulse Ox 94 L 03/25/19 07:00 Intake & Output 03/24/19 03/25/19 03/25/19 18:59 06:59 18:59 Intake Total 1411.005 5728 Output Total 1000 1800 Balance 92.733 -350 Intake: Intake, IV Titration 0405.494 8657 Amount Dextrose 5%-0.45% NaCl 1, 1000 1250 000 ml @ 125 mls/hr IV . Q8H [facility] Rx#:[id number] Ropivacaine 250 mg 92.733 Hydromorphone (Pf) 5 mg In Sodium Chloride 0.9% 200 ml @ Per Protocol EPIDURAL .Q0M PRN Rx#: [id number] Oral 200 Output: Urine 1000 1800 Uretheral (Mason) 1000 700 Other: Voiding Method Indwelling Catheter Indwelling Catheter - Constitutional General appearance: Present: cooperative, obese. Absent: no acute distress - EENT Eyes: Absent: abnormal pupil - Respiratory Respiratory: bilateral: CTA - Cardiovascular Rhythm: regular Heart sounds: normal: S1, S2 Abnormal Heart Sounds: Absent: S3 Gallop - Gastrointestinal General gastrointestinal: Present: soft. Absent: tenderness, umbilical hernia - Neurologic Neurologic: Present: CNII-XII intact. Absent: focal deficits - Psychiatric Psychiatric: Present: A&O x's 3, appropriate affect - Labs CBC & Chem 7: 03/24/19 08:00 03/24/19 08:00 Labs: Abnormal Lab Results - Last 24 Hours (Table) 03/24/19 03/24/19 Range/Units 08:00 08:00 WBC 13.3 H (3.8-10.6) k/uL RDW 16.0 H (11.5-15.5) % Glucose 120 H (74-99) mg/dL Total Protein 6.1 L (6.3-8.2) g/dL Albumin 3.1 L (3.5-5.0) g/dL Assessment and Plan (1) Depressed Current Visit: Yes Status: Acute Code(s): F32.9 - MAJOR DEPRESSIVE DISORDER, SINGLE EPISODE, UNSPECIFIED SNOMED Code(s): 76787730 (2) Primary insomnia Current Visit: Yes Status: Acute Code(s): F51.01 - PRIMARY INSOMNIA SNOMED Code(s): 7275858 (3) Diverticulitis large intestine Current Visit: Yes Status: Acute Code(s): K57.32 - DVTRCLI OF LG INT W/O PERFORATION OR ABSCESS W/O BLEEDING SNOMED Code(s): 5666951 (4) Abdominal pain Current Visit: No Status: Acute Code(s): R10.9 - UNSPECIFIED ABDOMINAL PAIN SNOMED Code(s): 86905012 (5) Hernia of anterior abdominal wall Current Visit: No Status: Acute Code(s): K43.9 - VENTRAL HERNIA WITHOUT OBSTRUCTION OR GANGRENE SNOMED Code(s): 911002625 Plan: Continue current regimen or treatment. No obvious flatus as of yet but appropriate borygmus. Advance diet per surgery. See orders otherwise. Dr. Dykes's group will covering starting Friday. Time with Patient: Less than 30
[2019-03-25 08:24] LABS: HCT 32.9 % (34.0-46.0); HGB 10.9 gm/dL (11.4-16.0); MCH 27.4 pg (25.0-35.0); MCHC 33.2 g/dL (31.0-37.0); MCV 82.7 fL (80.0-100.0); Mean Platelet Volume 7.1; Platelet Count 281 k/uL (150-450); RBC 3.98 m/uL (3.80-5.40); RDW 15.3 % (11.5-15.5); WBC 13.4 k/uL (3.8-10.6)
[2019-03-25 08:37] LABS: ALT 19 U/L (9-52); AST 13 U/L (14-36); African American GFR (CKD) >90 (>60 ml/min/1.73 sqM); Albumin 2.8 g/dL (3.5-5.0); Alkaline Phosphatase 78 U/L (38-126); Anion Gap 5 mmol/L; Blood Urea Nitrogen 5 mg/dL (7-17); Calcium 8.1 mg/dL (8.4-10.2); Carbon Dioxide 31 mmol/L (22-30); Chloride 101 mmol/L (98-107); Glucose 117 mg/dL (74-99); Non-African American GFR(CKD) >90 (>60 ml/min/1.73 sqM); Potassium 3.7 mmol/L (3.5-5.1); Sodium 137 mmol/L (137-145); Total Bilirubin 0.4 mg/dL (0.2-1.3); Total Protein 5.8 g/dL (6.3-8.2)
[2019-03-25] MEDS: ALVIMOPAN 12 MG CAPSULE PO SCH ×2 (09:23→20:55)
[2019-03-25] MEDS: ESCITALOPRAM 10 MG TAB PO SCH (09:23)
--- NOTE | 2019-03-25 11:18 | P.PN ---
Progress Note - Text Anesthesia POD 3, 0 650. Status Post ileostomy reversal under general endotracheal anesthesia with an epidrual catheter placed at L3 4 for post surgical pain releif. VAS (1, 3) with Ropivicaine 0.1 % and Dilaudid 20 mcg / cc running at 8 cc / hr. Lower extremity strength (3/4). Minimal sedation. Site looks OK. Epidural is to be discontinued today.
[2019-03-25] MEDS: diphenhydrAMINE 50 MG/ML 1 ML VIAL IVP PRN (13:30)
--- NOTE | 2019-03-25 15:40 | P.PN ---
Subjective Progress Note Date: 03/25/19 CHIEF COMPLAINT: Reversal of ileostomy HISTORY OF PRESENT ILLNESS: 58-year-old female who underwent exploratory laparotomy, lysis of adhesions, repair of incisional hernia, and reversal of ileostomy. Postoperative day #3. Patient seen and examined at this morning at the bedside. Patient reports her pain is tolerable. Epidural infusing at 8 mL an hour. She reports passing small amount of flatus this morning. Denies nausea or vomiting. Tolerating clear liquid diet. PHYSICAL EXAM: VITAL SIGNS: Reviewed. GENERAL: Well-developed in no acute distress. HEENT: No sclera icterus. Extraocular movements grossly intact. Moist buccal m ucosa. Head is atraumatic, normocephalic. ABDOMEN: Soft. Nondistended. Dressing intact with shadowing to upper aspect. Hypoactive bowel sounds. Abdominal binder present. NEUROLOGIC: Alert and oriented. Cranial nerves II through XII grossly intact. ASSESSMENT: 1. Status post exploratory laparotomy, lysis of adhesions, repair of incisional hernia, and reversal of ileostomy PLAN: 1. Continue clear liquid diet. Possible advancement of diet tomorrow 2. Incentive spirometry 3. Activity as tolerated. Patient encouraged to be out of bed and ambulatory. 4. Pain control. Discontinue epidural. IV Dilaudid and [place] ordered as needed Nurse practitioner note has been reviewed by physician. Signing provider agrees with the documented findings, assessment, and plan of care. Objective - Vital Signs Vital signs: Vital Signs Temp 98.5 F 03/25/19 14:14 Pulse 71 03/25/19 14:14 Resp 16 03/25/19 14:14 BP 121/80 03/25/19 14:14 Pulse Ox 96 03/25/19 14:14 Intake & Output 03/24/19 03/25/19 03/25/19 18:59 06:59 18:59 Intake Total 7367.667 6456 1000 Output Total 1000 1800 Balance 92.733 -350 1000 Intake: IV 1000 Dextrose 5%-0.45% NaCl 1, 1000 000 ml @ 125 mls/hr IV . Q8H [facility] Rx#:[id number] Intake, IV Titration 1046.816 1374 Amount Dextrose 5%-0.45% NaCl 1, 1000 1250 000 ml @ 125 mls/hr IV . Q8H [facility] Rx#:[id number] Ropivacaine 250 mg 92.733 Hydromorphone (Pf) 5 mg In Sodium Chloride 0.9% 200 ml @ Per Protocol EPIDURAL .Q0M PRN Rx#: [id number] Oral 200 Output: Urine 1000 1800 Uretheral (Mason) 1000 700 Other: Voiding Method Indwelling Catheter Indwelling Catheter Indwelling Catheter - Labs CBC & Chem 7: 03/25/19 07:47 03/25/19 07:47 Labs: Abnormal Lab Results - Last 24 Hours (Table) 03/25/19 03/25/19 Range/Units 07:47 07:47 WBC 13.4 H (3.8-10.6) k/uL Hgb 10.9 L (11.4-16.0) gm/dL Hct 32.9 L (34.0-46.0) % Carbon Dioxide 31 H (22-30) mmol/L BUN 5 L (7-17) mg/dL Glucose 117 H (74-99) mg/dL Calcium 8.1 L (8.4-10.2) mg/dL AST 13 L (14-36) U/L Total Protein 5.8 L (6.3-8.2) g/dL Albumin 2.8 L (3.5-5.0) g/dL
[2019-03-25] MEDS: HYDROcodone/APAP 5-325MG 1 EACH TAB PO PRN (16:10)
[2019-03-25] MEDS: GABAPENTIN 300 MG CAP PO SCH (20:55)
[2019-03-26] MEDS: HYDROmorphone 1 MG/ML 1 ML SYRINGE IVP PRN ×2 (00:05→20:20)
[2019-03-26] MEDS: D5-0.45% NACL WITH KCL 20MEQ/L 1,000 ML IV SCH ×3 (03:31→20:00)
[2019-03-26] MEDS: HYDROcodone/APAP 5-325MG 1 EACH TAB PO PRN ×2 (05:50→12:59)
[2019-03-26] MEDS: DEXTROSE 5%-0.45% NACL 1,000 ML IV SCH ×4 (05:52→23:51)
[2019-03-26 10:05] LABS: African American GFR (CKD) >90 (>60 ml/min/1.73 sqM); Anion Gap 5 mmol/L; Blood Urea Nitrogen 3 mg/dL (7-17); Calcium 8.2 mg/dL (8.4-10.2); Carbon Dioxide 31 mmol/L (22-30); Chloride 103 mmol/L (98-107); Glucose 116 mg/dL (74-99); Non-African American GFR(CKD) >90 (>60 ml/min/1.73 sqM); Potassium 3.5 mmol/L (3.5-5.1); Sodium 139 mmol/L (137-145)
[2019-03-26] MEDS: ONDANSETRON 4 MG/2 ML VIAL IVP PRN ×2 (10:17→20:19)
[2019-03-26] MEDS: ESCITALOPRAM 10 MG TAB PO SCH (10:17)
[2019-03-26] MEDS: HEPARIN SODIUM,PORCINE 5,000 UNIT/ML 1 ML VIAL SQ SCH ×4 (10:17→23:50)
[2019-03-26] MEDS: ALVIMOPAN 12 MG CAPSULE PO SCH ×2 (10:17→19:32)
[2019-03-26] MEDS ORDERED: METOCLOPRAMIDE 5 MG/ML 2 ML VIAL IVP STA (10:18)
[2019-03-26 11:11] LABS: Basophils % (A) 0 %; Eosinophils # (A) 0.7 k/uL (0-0.7); Eosinophils % (A) 7 %; HCT 34.8 % (34.0-46.0); HGB 11.5 gm/dL (11.4-16.0); Lymphocytes # (A) 1.8 k/uL (1.0-4.8); Lymphocytes % (A) 17 %; MCH 27.3 pg (25.0-35.0); MCHC 33.2 g/dL (31.0-37.0); MCV 82.3 fL (80.0-100.0); Mean Platelet Volume 7.6; Monocytes # (A) 0.6 k/uL (0-1.0); Monocytes % (A) 6 %; Neutrophils # (A) 7.4 k/uL (1.3-7.7); Neutrophils % (A) 70 %; Platelet Count 324 k/uL (150-450); RBC 4.23 m/uL (3.80-5.40); RDW 15.4 % (11.5-15.5); WBC 10.6 k/uL (3.8-10.6)
--- NOTE | 2019-03-26 11:29 | P.PN ---
Subjective Progress Note Date: 03/26/19 CHIEF COMPLAINT: Reversal of ileostomy HISTORY OF PRESENT ILLNESS: 58-year-old female who underwent exploratory laparotomy, lysis of adhesions, repair of incisional hernia, and reversal of ileostomy. Postoperative day #4. Patient seen and examined at this morning at the bedside. She reports nausea this morning and states she has not been eating a lot of her clear liquid tray. She did have a bowel movement after my examination per nursing with improvement in nausea. She is requesting diet to be advanced. PHYSICAL EXAM: VITAL SIGNS: Reviewed. GENERAL: Well-developed in no acute distress. HEENT: No sclera icterus. Extraocular movements grossly intact. Moist buccal mucosa. Head is atraumatic, normocephalic. ABDOMEN: Soft. Nondistended. Dressing intact with shadowing to upper aspect. Hypoactive bowel sounds. Abdominal binder present. NEUROLOGIC: Alert and oriented. Cranial nerves II through XII grossly intact. ASSESSMENT: 1. Status post exploratory laparotomy, lysis of adhesions, repair of incisional hernia, and reversal of ileostomy PLAN: 1. Advance diet to full liquid 2. Incentive spirometry 3. Activity as tolerated. Patient encouraged to be out of bed and ambulatory. 4. Pain control. IV Dilaudid and [place] ordered as needed Nurse practitioner note has been reviewed by physician. Signing provider agrees with the documented findings, assessment, and plan of care. Objective - Vital Signs Vital signs: Vital Signs Temp 97.4 F L 03/26/19 07:00 Pulse 70 03/26/19 07:00 Resp 14 03/26/19 07:00 BP 152/86 03/26/19 07:00 Pulse Ox 98 03/26/19 07:00 Intake & Output 03/25/19 03/26/19 03/26/19 18:59 06:59 18:59 Intake Total 1000 Output Total 1600 700 Balance -600 -700 Intake: IV 1000 Dextrose 5%-0.45% NaCl 1, 1000 000 ml @ 125 mls/hr IV . Q8H [facility] Rx#:[id number] Output: Urine 1600 700 Uretheral (Mason) 1600 Other: Voiding Method Indwelling Catheter # Voids 3 - Labs CBC & Chem 7: 03/26/19 09:01 03/26/19 09:01 Labs: Abnormal Lab Results - Last 24 Hours (Table) 03/26/19 Range/Units 09:01 Carbon Dioxide 31 H (22-30) mmol/L BUN 3 L (7-17) mg/dL Glucose 116 H (74-99) mg/dL Calcium 8.2 L (8.4-10.2) mg/dL
[2019-03-26] MEDS ORDERED: diphenhydrAMINE 25 MG CAP PO PRN (11:43)
[2019-03-26] MEDS ORDERED: PANTOPRAZOLE 40 MG/10 ML VIAL IVP SCH (17:15)
[2019-03-26] MEDS: PANTOPRAZOLE 40 MG TABLET PO SCH (19:10)
--- NOTE | 2019-03-26 19:46 | PN ---
PROGRESS NOTE DATE OF SERVICE: 03/26/2019 I am covering for Dr. Barbosa. This 58-year-old woman with a past medical history of multiple problems and DJD, history of appendectomy, history of bowel resection, anxiety, depression, being followed by Dr. Barbosa in the outpatient setting was admitted after exploratory laparotomy, lysis of adhesions, repair of incisional hernia, reversal of ileostomy. The patient being closely monitored. No chest pain. No palpitations. No fever. PHYSICAL EXAM: Alert and oriented times three. Pulse 68, blood pressure 140/84, respiration 14, temperature 98.1, pulse ox 94% on room air. HEENT: Conjunctivae normal. NECK: No jugular venous distention. RESPIRATORY: Breath sounds diminished in the bases. A few rhonchi. No crackles. ABDOMEN is soft, status post surgery. LEGS: No edema. No swelling. CENTRAL NERVOUS SYSTEM: No focal deficits. LABS: CBC within normal limits. Sodium 139, potassium 3.5. ASSESSMENT: 1. Status post exploratory laparotomy, lysis of adhesions, repair of incisional hernia, reversal of ileostomy. 2. Depression. 3. Primary insomnia. 4. Abdominal pain. 5. Hernia anterior abdominal wall. 6. Increased WBC, improved. RECOMMENDATIONS AND DISCUSSION: This 58-year-old woman who presented with multiple medical issues, at this time, I recommend to continue current management and symptomatic treatment. Otherwise, at this time, incentive spirometry. DVT prophylaxis. Closely follow with surgery. Further recommendations to follow. Repeat lytes tomorrow. MMODL / IJN: [id number] /
[2019-03-26] MEDS: GABAPENTIN 300 MG CAP PO SCH (19:59)
[2019-03-27] MEDS: HYDROcodone/APAP 5-325MG 1 EACH TAB PO PRN ×3 (03:33→14:44)
[2019-03-27] MEDS: D5-0.45% NACL WITH KCL 20MEQ/L 1,000 ML IV SCH ×3 (04:21→20:14)
[2019-03-27] MEDS: HYDROmorphone 1 MG/ML 1 ML SYRINGE IVP PRN ×3 (04:27→22:19)
[2019-03-27 07:29] LABS: Basophils % (A) 0 %; Eosinophils # (A) 0.9 k/uL (0-0.7); Eosinophils % (A) 9 %; HCT 35.5 % (34.0-46.0); HGB 11.6 gm/dL (11.4-16.0); Lymphocytes # (A) 2.7 k/uL (1.0-4.8); Lymphocytes % (A) 25 %; MCHC 32.7 g/dL (31.0-37.0); MCV 82.5 fL (80.0-100.0); Mean Platelet Volume 6.5; Monocytes # (A) 0.5 k/uL (0-1.0); Monocytes % (A) 5 %; Neutrophils # (A) 6.5 k/uL (1.3-7.7); Neutrophils % (A) 60 %; Platelet Count 360 k/uL (150-450); RBC 4.31 m/uL (3.80-5.40); RDW 15.5 % (11.5-15.5); WBC 10.7 k/uL (3.8-10.6)
[2019-03-27 07:45] LABS: African American GFR (CKD) >90 (>60 ml/min/1.73 sqM); Anion Gap 4 mmol/L; Blood Urea Nitrogen 4 mg/dL (7-17); Calcium 8.3 mg/dL (8.4-10.2); Carbon Dioxide 35 mmol/L (22-30); Chloride 101 mmol/L (98-107); Glucose 110 mg/dL (74-99); Non-African American GFR(CKD) >90 (>60 ml/min/1.73 sqM); Potassium 3.3 mmol/L (3.5-5.1); Sodium 140 mmol/L (137-145)
[2019-03-27] MEDS: PANTOPRAZOLE 40 MG TABLET PO SCH (09:11)
[2019-03-27] MEDS: ALVIMOPAN 12 MG CAPSULE PO SCH ×2 (09:11→20:12)
[2019-03-27] MEDS: ESCITALOPRAM 10 MG TAB PO SCH (09:12)
[2019-03-27] MEDS: HEPARIN SODIUM,PORCINE 5,000 UNIT/ML 1 ML VIAL SQ SCH ×3 (09:12→22:19)
[2019-03-27] MEDS ORDERED: Potassium Replacement Protocol 1 EACH MISC MISCELLANE PRN (11:38)
[2019-03-27] MEDS: GABAPENTIN 300 MG CAP PO SCH ×2 (12:25→20:11)
[2019-03-27] MEDS: DEXTROSE 5%-0.45% NACL 1,000 ML IV SCH ×3 (12:25→23:29)
[2019-03-27] MEDS: POTASSIUM CHLORIDE ER 20 MEQ TAB.ER PO SCH ×2 (12:25→14:44)
--- NOTE | 2019-03-27 16:17 | P.PN ---
Subjective Progress Note Date: 03/27/19 CHIEF COMPLAINT: Reversal of ileostomy HISTORY OF PRESENT ILLNESS: The patient is a 58-year-old female status post ileostomy reversal, 03/22/2019. She is tolerating full liquid diet. Pain is controlled. She had a bowel movement. She is ambulating some. ROS: No reports of nausea and vomiting. No bowel movements. No fevers or chills. No new chest pain. No productive sputum PHYSICAL EXAM: VITAL SIGNS: Reviewed CONSTITUTIONAL: Well developed and in no acute distress. EYES: Conjuctivae without sclera icterus. Extraocular movements grossly intact. HEAD, EARS, NOSE, THROAT: Moist buccal mucosa. Head is atraumatic, normocephalic. Hears conversational speech. No nasal drainage. NECK: Supple. No thyroidomegaly. RESPIRATORY: Non-labored respirations and equal bilateral excursions. CARDIOVASCULAR: Palpable 2+ radial pulses. Regular rate. Regular rhythm. ABDOMEN: Incisions clean dry and intact. Soft. No peritonitis. Dressing clean dry and intact. MUSCULOSKELETAL: No gross deformity of the lower extremities noted. No clubbing. No cyanosis. SKIN: Good skin turgor. Well perfused. NEUROLOGIC: Cranial nerves I through XII grossly intact. No focal or lateralizing signs. PSYCH: Appropriate affect. Alert and oriented to person, place and time. CLINCAL LABS: White blood cell count elevated 10.7 k ASSESSMENT: 1. Reversal of ileostomy 2. Morbid obesity due to excess calories, BMI 41.2 PLAN: 1. Continue with physical therapy for targeted discharge in 48 hrs. 2. May shower. Objective - Vital Signs Vital signs: Vital Signs Temp 97.8 F 03/27/19 14:09 Pulse 65 03/27/19 14:09 Resp 17 03/27/19 14:09 BP 127/74 03/27/19 14:09 Pulse Ox 98 03/27/19 14:09 Intake & Output 03/26/19 03/27/19 03/27/19 18:59 06:59 18:59 Intake Total 240 500 Balance 240 500 Intake: Oral 240 500 Other: # Voids 1 3 2 - Labs CBC & Chem 7: 03/27/19 07:10 03/27/19 15:48 Labs: Abnormal Lab Results - Last 24 Hours (Table) 03/27/19 03/27/19 Range/Units 07:10 07:10 WBC 10.7 H (3.8-10.6) k/uL Eosinophils # 0.9 H (0-0.7) k/uL Potassium 3.3 L (3.5-5.1) mmol/L Carbon Dioxide 35 H (22-30) mmol/L BUN 4 L (7-17) mg/dL Glucose 110 H (74-99) mg/dL Calcium 8.3 L (8.4-10.2) mg/dL Assessment and Plan (1) History of ileostomy Current Visit: Yes Status: Acute Code(s): Z98.890 - OTHER SPECIFIED POSTPROCEDURAL STATES SNOMED Code(s): 773047851 (2) Status post reversal of ileostomy Current Visit: Yes Status: Acute Code(s): Z98.890 - OTHER SPECIFIED POSTPROCEDURAL STATES SNOMED Code(s): 69973610098261725 (3) Morbid obesity due to excess calories Current Visit: Yes Status: Acute Code(s): E66.01 - MORBID (SEVERE) OBESITY DUE TO EXCESS CALORIES SNOMED Code(s): 029250359 (4) Body mass index (BMI) of 40.1 to 44.9 in adult Current Visit: Yes Status: Acute Code(s): Z68.41 - BODY MASS INDEX (BMI) 40.0-44.9, ADULT SNOMED Code(s): 290542882 (5) Diverticulitis large intestine Current Visit: Yes Status: Acute Code(s): K57.32 - DVTRCLI OF LG INT W/O PER FORATION OR ABSCESS W/O BLEEDING SNOMED Code(s): 5597005 (6) Depressive disorder Current Visit: Yes Status: Acute Code(s): F32.9 - MAJOR DEPRESSIVE DISORDER, SINGLE EPISODE, UNSPECIFIED SNOMED Code(s): 57665130
[2019-03-27] MEDS ORDERED: POTASSIUM CHLORIDE ER 20 MEQ TAB.ER PO SCH (17:00)
--- NOTE | 2019-03-27 19:23 | PN ---
PROGRESS NOTE DATE OF SERVICE: 03/27/2019. This 58-year-old woman was admitted after exploratory laparotomy, lysis of adhesions, improving significantly. No chest pain. No palpitations. No fever. EXAM: Alert and oriented times three. Pulse 65, blood pressure 127/74, respiration 17, temperature 97.8, pulse ox 98% on room air. HEENT: Conjunctivae normal. NECK: No JVD. CARDIOVASCULAR: S1, S2 muffled. RESPIRATION: Breath sounds diminished in the bases. A few scattered rhonchi and crackles. ABDOMEN is soft, obese, nontender. Status post surgery. LEGS: No edema. No swelling. NERVOUS SYSTEM: No focal deficits. LABS: WBC 10.7, hemoglobin 11.6. Sodium 140, potassium 3.7. ASSESSMENT: 1. Status post exploratory laparotomy, lysis of adhesions, repair of incisional hernia, reversal of ileostomy. 2. Depression. 3. Primary insomnia. 4. Abdominal pain. 5. Hernia, anterior abdominal wall. 6. Increased WBC, improved. 7. Hypokalemia. RECOMMENDATIONS AND DISCUSSION: Recommend to continue current medications, management and symptomatic treatment. Resume the home medications. Potassium supplementation. DVT prophylaxis. The rest of the recommendations per Surgery. Further recommendations to follow. MMODL / IJN: [id number] /
[2019-03-28] MEDS: HYDROcodone/APAP 5-325MG 1 EACH TAB PO PRN ×3 (03:02→22:12)
[2019-03-28] MEDS: D5-0.45% NACL WITH KCL 20MEQ/L 1,000 ML IV SCH ×3 (03:21→22:13)
[2019-03-28] MEDS: HYDROmorphone 1 MG/ML 1 ML SYRINGE IVP PRN (04:39)
[2019-03-28 07:13] LABS: Potassium 3.8 mmol/L (3.5-5.1)
[2019-03-28] MEDS: PANTOPRAZOLE 40 MG TABLET PO SCH (07:36)
[2019-03-28] MEDS: HEPARIN SODIUM,PORCINE 5,000 UNIT/ML 1 ML VIAL SQ SCH ×3 (07:36→22:07)
[2019-03-28] MEDS: ESCITALOPRAM 10 MG TAB PO SCH (07:36)
[2019-03-28] MEDS: GABAPENTIN 300 MG CAP PO SCH ×3 (07:36→22:08)
[2019-03-28] MEDS: ALVIMOPAN 12 MG CAPSULE PO SCH (07:36)
[2019-03-28 08:42] LABS: Basophils % (A) 0 %; Eosinophils # (A) 0.9 k/uL (0-0.7); Eosinophils % (A) 10 %; HCT 36.1 % (34.0-46.0); HGB 11.8 gm/dL (11.4-16.0); Lymphocytes # (A) 2.9 k/uL (1.0-4.8); Lymphocytes % (A) 30 %; MCH 27.1 pg (25.0-35.0); MCHC 32.6 g/dL (31.0-37.0); MCV 82.9 fL (80.0-100.0); Mean Platelet Volume 7.1; Monocytes # (A) 0.6 k/uL (0-1.0); Monocytes % (A) 6 %; Neutrophils # (A) 5.2 k/uL (1.3-7.7); Neutrophils % (A) 53 %; Platelet Count 389 k/uL (150-450); RBC 4.36 m/uL (3.80-5.40); RDW 15.5 % (11.5-15.5); WBC 9.8 k/uL (3.8-10.6)
[2019-03-28 08:46] LABS: African American GFR (CKD) >90 (>60 ml/min/1.73 sqM); Anion Gap 6 mmol/L; Blood Urea Nitrogen 5 mg/dL (7-17); Calcium 8.8 mg/dL (8.4-10.2); Carbon Dioxide 35 mmol/L (22-30); Chloride 99 mmol/L (98-107); Glucose 98 mg/dL (74-99); Non-African American GFR(CKD) >90 (>60 ml/min/1.73 sqM); Sodium 140 mmol/L (137-145)
[2019-03-28] MEDS ORDERED: diphenhydrAMINE 50 MG/ML 1 ML VIAL IVP PRN (11:04)
--- NOTE | 2019-03-28 11:09 | P.PN ---
Subjective Progress Note Date: 03/28/19 CHIEF COMPLAINT: Reversal of ileostomy HISTORY OF PRESENT ILLNESS: The patient is a 58-year-old female status post ileostomy reversal, 03/22/2019. POD 6. She is tolerating full liquid diet. She reports poor sleep for 2 days as her medications were not prescribed gabapentin. Also she reports tenderness along the superior portion of her incision. "I had a large bowel movement." ROS: No reports of nausea and vomiting. No fevers or chills. No new chest pain. No productive sputum PHYSICAL EXAM: VITAL SIGNS: Reviewed CONSTITUTIONAL: Well developed and in no acute distress. EYES: Conjuctivae without sclera icterus. Extraocular movements grossly intact. HEAD, EARS, NOSE, THROAT: Moist buccal mucosa. Head is atraumatic, normocephalic. Hears conversational speech. No nasal drainage. NECK: Supple. No thyroidomegaly. RESPIRATORY: Non-labored respirations and equal bilateral excursions. CARDIOVASCULAR: Palpable 2+ radial pulses. Regular rate. Regular rhythm. ABDOMEN: Incisions clean dry and intact. Soft. Abdominal binder present. MUSCULOSKELETAL: No gross deformity of the lower extremities noted. No clubbing. No cyanosis. SKIN: Good skin turgor. Well perfused. NEUROLOGIC: Cranial nerves I through XII grossly intact. No focal or lateralizing signs. PSYCH: Appropriate affect. Alert and oriented to person, place and time. CLINCAL LABS: White blood cell count now normal ASSESSMENT: 1. Reversal of ileostomy 2. Morbid obesity due to excess calories, BMI 41.2 PLAN: 1. Gabapentin re-ordered per medicine 2. Benadryl for sleep 3. Regular diet 4. Re-fit abdominal binder 5. Discharge home tomorrow. Objective - Vital Signs Vital signs: Vital Signs Temp 97.9 F 03/28/19 07:00 Pulse 56 L 03/28/19 07:00 Resp 16 03/28/19 07:00 BP 121/76 03/28/19 07:00 Pulse Ox 94 L 03/28/19 07:00 Intake & Output 03/27/19 03/28/19 03/28/19 18:59 06:59 18:59 Intake Total 500 490 460 Balance 500 490 460 Intake: Oral 500 490 460 Other: Voiding Method Toilet # Voids 2 - Labs CBC & Chem 7: 03/28/19 06:43 03/28/19 06:43 Labs: Abnormal Lab Results - Last 24 Hours (Table) 03/28/19 03/28/19 Range/Units 06:43 06:43 Eosinophils # 0.9 H (0-0.7) k/uL Carbon Dioxide 35 H (22-30) mmol/L BUN 5 L (7-17) mg/dL Assessment and Plan (1) History of ileostomy Current Visit: Yes Status: Acute Code(s): Z98.890 - OTHER SPECIFIED POSTPROCEDURAL STATES SNOMED Code(s): 532058973 (2) Status post reversal of ileostomy Current Visit: Yes Status: Acute Code(s): Z98.890 - OTHER SPECIFIED POSTPROCEDURAL STATES SNOMED Code(s): 15330063294230488 (3) Morbid obesity due to excess calories Current Visit: Yes Status: Acute Code(s): E66.01 - MORBID (SEVERE) OBESITY DUE TO EXCESS CALORIES SNOMED Code(s): 742714126 (4) Body mass index (BMI) of 40.1 to 44.9 in adult Current Visit: Yes Status: Acute Code(s): Z68.41 - BODY MASS INDEX (BMI) 40.0-44.9, ADULT SNOMED Code(s): 539651662 (5) Diverticulitis large intestine Current Visit: Yes Status: Acute Code(s): K57.32 - DVTRCLI OF LG INT W/O PERFORATION OR ABSCESS W/O BLEEDING SNOMED Code(s): 0788253 (6) Depressive disorder Current Visit: Yes Status: Acute Code(s): F32.9 - MAJOR DEPRESSIVE DISORDER, SINGLE EPISODE, UNSPECIFIED SNOMED Code(s): 69931720
[2019-03-28] MEDS: IBUPROFEN 600 MG TAB PO SCH ×3 (11:52→22:08)
[2019-03-28] MEDS: DEXTROSE 5%-0.45% NACL 1,000 ML IV SCH ×2 (11:58→22:12)
[2019-03-28] MEDS ORDERED: LORazepam 0.5 MG TAB PO PRN (12:28)
[2019-03-28] MEDS ORDERED: TEMAZEPAM 15 MG CAP PO PRN (12:29)
--- NOTE | 2019-03-28 21:24 | PN ---
PROGRESS NOTE DATE OF SERVICE: 03/28/2019 This 58-year-old woman who was admitted after exploratory laparotomy and lysis of adhesions is improving significantly. The patient has significant restless legs syndrome. No chest pain. No palpitations. No fever. EXAM: Alert and oriented x3. Pulse 61, blood pressure 131/84, respirations 17, temperature 97.6, pulse ox 94% on room air. HEENT: Conjunctivae normal. Neck: No JVD. CARDIOVASCULAR: S1, S2 muffled. RESPIRATORY: Breath sounds diminished in the bases. No rhonchi. No crackles. ABDOMEN soft. Status post surgery. LEGS: No edema. No swelling. CENTRAL NERVOUS SYSTEM: No focal deficits. LABS: WBC 9.2, hemoglobin 11.8. Labs are noted. ASSESSMENT: 1. Status post exploratory laparotomy, lysis of adhesions, repair of incisional hernia, reversal of ileostomy. 2. Depression. 3. Primary insomnia. 4. Restless legs syndrome. 5. Abdominal pain. 6. Hernia, anterior abdominal wall. 7. Increased WBC improved. 8. Hypokalemia. RECOMMENDATIONS AND DISCUSSION: Recommend to continue current medications, management and symptomatic treatment. The patient was started on the home medications of gabapentin. I would also recommend Ativan and Restoril also. Otherwise, continue to monitor. Further recommendations to follow. MMODL / IJN: [id number] /
[2019-03-29] MEDS: DEXTROSE 5%-0.45% NACL 1,000 ML IV SCH ×2 (03:03→08:01)
[2019-03-29] MEDS: D5-0.45% NACL WITH KCL 20MEQ/L 1,000 ML IV SCH (03:03)
[2019-03-29] MEDS: IBUPROFEN 600 MG TAB PO SCH (07:59)
[2019-03-29] MEDS: GABAPENTIN 300 MG CAP PO SCH (07:59)
--- NOTE | 2019-03-29 07:59 | P.PN ---
Subjective This is a continue present on a patient had reversal ileostomy secondary to diverticular disease. Hernia repair is also noted. The patient states no flatus as this time. However, she is ambulating and seemingly tolerating her liquid. Postop day #3 Objective - Vital Signs Vital signs: Vital Signs Temp 97.9 F 03/29/19 01:42 Pulse 60 03/29/19 01:42 Resp 18 03/29/19 01:42 BP 145/75 03/29/19 01:42 Pulse Ox 96 03/29/19 01:42 Intake & Output 03/28/19 03/29/19 03/29/19 18:59 06:59 18:59 Intake Total 720 250 Balance 720 250 Intake: Oral 720 250 Other: Voiding Method Toilet # Voids 1 - Constitutional General appearance: Present: obese - EENT Eyes: Absent: abnormal pupil - Neck Neck: Absent: lymphadenopathy - Respiratory Respiratory: bilateral: CTA - Cardiovascular Rhythm: regular Heart sounds: normal: S1, S2 Abnormal Heart Sounds: Absent: S3 Gallop - Gastrointestinal General gastrointestinal: Present: soft. Absent: tenderness - Psychiatric Psychiatric: Present: A&O x's 3 - Labs CBC & Chem 7: 03/28/19 06:43 03/28/19 06:43 Labs: Abnormal Lab Results - Last 24 Hours (Table) 03/28/19 03/28/19 Range/Units 06:43 06:43 Eosinophils # 0.9 H (0-0.7) k/uL Carbon Dioxide 35 H (22-30) mmol/L BUN 5 L (7-17) mg/dL Assessment and Plan (1) Depressed Current Visit: Yes Status: Acute Code(s): F32.9 - MAJOR DEPRESSIVE DISORDER, SINGLE EPISODE, UNSPECIFIED SNOMED Code(s): 29574860 (2) Primary insomnia Current Visit: Yes Status: Acute Code(s): F51.01 - PRIMARY INSOMNIA SNOMED Code(s): 9320803 (3) Diverticulitis large intestine Current Visit: Yes Status: Acute Code(s): K57.32 - DVTRCLI OF LG INT W/O PERFORATION OR ABSCESS W/O BLEEDING SNOMED Code(s): 4757863 (4) Abdominal pain Current Visit: No Status: Acute Code(s): R10.9 - UNSPECIFIED ABDOMINAL PAIN SNOMED Code(s): 84684606 (5) Hernia of anterior abdominal wall Current Visit: No Status: Acute Code(s): K43.9 - VENTRAL HERNIA WITHOUT OBSTRUCTION OR GANGRENE SNOMED Code(s): 179742730
[2019-03-29 08:00] VITALS: BP 147/64; PULSE 57; RESP 15; TEMP 98
[2019-03-29] MEDS: PANTOPRAZOLE 40 MG TABLET PO SCH (08:00)
[2019-03-29] MEDS: ESCITALOPRAM 10 MG TAB PO SCH (08:00)
[2019-03-29] MEDS: HEPARIN SODIUM,PORCINE 5,000 UNIT/ML 1 ML VIAL SQ SCH (08:01)
[2019-03-29] MEDS: HYDROcodone/APAP 5-325MG 1 EACH TAB PO PRN (08:16)
--- NOTE | 2019-03-29 14:40 | P.DS ---
Providers Date of admission: 03/22/19 07:59 Expected date of discharge: 03/29/19 Attending physician: Aunj Mckenzie Consults: 03/22/19 12:55 Consult Physician Routine Consulting Provider: Andres Barbosa Consult Reason/Comments: Medical management Do you want consulting provider notified?: Yes Primary care physician: Andres Barbosa Hospital Course: 58-year-old female who underwent exploratory laparotomy, lysis of adhesions, repair of incisional hernia, and reversal of ileostomy. Patient is doing well postoperatively without any immediate complications. She was started on clear liquid diet and advanced as tolerated. She is now tolerating regular diet. Passing flatus and having bowel movements. Denies nausea or vomiting. Pain has been controlled on oral medications. Vital signs have been stable. She is stable for discharge home today. She is to follow-up with Dr. Mckenzie in one week. Please see EMR for further hospital course details. Discharge Diagnosis: 1. Status post exploratory laparotomy, lysis of adhesions, repair of incisional hernia, and reversal of ileostomy Nurse practitioner note has been reviewed by physician. Signing provider agrees with the documented findings, assessment, and plan of care. Patient Condition at Discharge: Stable Plan - Discharge Summary Discharge Rx Participant: Yes New Discharge Prescriptions: Continue HYDROcodone/APAP 5-325MG [[place] 5-325] 1 tab PO Q6HR PRN PRN Reason: Pain Ibuprofen [Motrin] 400 mg PO Q6H PRN PRN Reason: Pain Escitalopram [Lexapro] 10 mg PO DAILY Gabapentin 600 mg PO HS Discharge Medication List HYDROcodone/APAP 5-325MG [[place] 5-325] 1 tab PO Q6HR PRN 07/28/18 [History] Ibuprofen [Motrin] 400 mg PO Q6H PRN 12/22/18 [History] Escitalopram [Lexapro] 10 mg PO DAILY 03/16/19 [History] Gabapentin 600 mg PO HS 03/22/19 [History] Follow up Appointment(s)/Referral(s): Andres Barbosa MD [Primary Care Provider] - 04/05/19 10:00 am [facility], [NON-STAFF] - Anuj Mckenzie MD [STAFF PHYSICIAN] - 04/06/19 4:20 pm Patient Instructions/Handouts: Ileostomy Reversal (DC) Activity/Diet/Wound Care/Special Instructions: No lifting over 10 lbs Limited activity Diet as tolerated You may shower. No tub baths or soaking. Discharge Disposition: HOME SELF-CARE
== END 2019-03-29 11:13 | disposition home or self-care (01) | DRG 330 ==
LOC: 2ORMAIN 07:59 → 4SSUR 15:50
PROVIDERS: ADMIT Surgery; ATTEND Surgery
PROC: 0DNW0ZZ Release Peritoneum, Open Approach (ICD-10-PCS; 2019-03-22)
PROC: 0DBB0ZZ Excision of Ileum, Open Approach (ICD-10-PCS; principal; 2019-03-22 10:15)
PROC: 0WQF0ZZ Repair Abdominal Wall, Open Approach (ICD-10-PCS; 2019-03-22 10:15)
DX: Z43.2 Encounter for attention to ileostomy (principal); Z68.41 Body mass index [BMI] 40.0-44.9, adult; E66.01 Morbid (severe) obesity due to excess calories; E87.6 Hypokalemia; F32.9 Major depressive disorder, single episode, unspecified; F51.01 Primary insomnia; G25.81 Restless legs syndrome; G89.18 Other acute postprocedural pain; K43.2 Incisional hernia without obstruction or gangrene; Z87.19 Personal history of other diseases of the digestive system; Z79.899 Other long term (current) drug therapy; Z82.0 Family history of epilepsy and other diseases of the nervous system; Z82.49 Family history of ischemic heart disease and other diseases of the circulatory system; Z82.5 Family history of asthma and other chronic lower respiratory diseases; Z83.3 Family history of diabetes mellitus; Z87.891 Personal history of nicotine dependence; Z90.710 Acquired absence of both cervix and uterus; K66.0 Peritoneal adhesions (postprocedural) (postinfection); M19.90 Unspecified osteoarthritis, unspecified site; Z90.49 Acquired absence of other specified parts of digestive tract; R11.0 Nausea
CPT/HCPCS: 80048; 80053; 83735; 84132; 85025; 85027; 86850; 86900; 86901; 88304

== ENCOUNTER 2019-04-06 11:41 | Emergency (ER) | payer OTHER ==
[2019-04-06 12:00] VITALS: RESP 18
[2019-04-06] MEDS ORDERED: ONDANSETRON 4 MG/2 ML VIAL IVP STA (12:40)
[2019-04-06] MEDS ORDERED: MORPHINE SULFATE 2 MG/ML SYRINGE IVP STA (12:40)
[2019-04-06] MEDS ORDERED: methylPREDNISolone SOD SUCCI 125 MG/2 ML VIAL IV STA (12:40)
[2019-04-06] MEDS ORDERED: SODIUM CHLORIDE 0.9% 500 ML 500 ML IV STA (12:40)
[2019-04-06] MEDS ORDERED: diphenhydrAMINE 50 MG/ML 1 ML VIAL IVP STA (12:41)
[2019-04-06] MEDS ORDERED: FAMOTIDINE 20 MG/2 ML VIAL IV STA (12:41)
--- NOTE | 2019-04-06 12:50 | ED ---
General Adult HPI - General Chief complaint: Recheck/Abnormal Lab/Rx Stated complaint: Swelling -post op Time Seen by Provider: 04/06/19 12:08 Source: patient, RN notes reviewed Mode of arrival: wheelchair Limitations: physical limitation - History of Present Illness Initial comments: 58-year-old female presents to the emergency department for right-sided abdominal pain. She states this has been ongoing for 2 days. States she noticed swelling in the right side of her abdomen as well. Patient recently had a reversal of colostomy on 03/22/2019 after she had a colon resection by Dr. Mckenzie secondary to diverticulitis. States that she had an appointment scheduled today but he had to cancel his office visits so she was told to come to the emergency department. Patient is having normal bowel movements. No nausea or vomiting. No fevers or chills.Patient has no other complaints at this time including shortness of breath, chest pain, nausea or vomiting, headache, or visual changes. - Related Data Home Medications Medication Instructions Recorded Confirmed Ibuprofen [Motrin] 400 mg PO Q6H PRN 12/22/18 04/06/19 Escitalopram [Lexapro] 10 mg PO DAILY 03/16/19 04/06/19 Gabapentin 600 mg PO TID 03/22/19 04/06/19 Hydrocodone/Acetaminophen [[place] 1 tab PO Q6HR PRN 04/06/19 04/06/19 7.5-325] Previous Rx's Medication Instructions Recorded Cephalexin [Keflex] 500 mg PO Q6HR 10 Days #40 cap 04/06/19 Sulfamethox-Tmp 800-160Mg [Bactrim 1 tab PO Q12HR #20 tab 04/06/19 DS 800-160 mg] Allergies Allergy/AdvReac Type Severity Reaction Status Date / Time propoxyphene Allergy Itching Verified 04/06/19 12:31 [From Dusty] Review of Systems ROS Statement: Those systems with pertinent positive or pertinent negative responses have been documented in the HPI. ROS Other: All systems not noted in ROS Statement are negative. Past Medical History Past Medical History: No Reported History Additional Past Medical History / Comment(s): diverticulitis resulting in colon resection w/ ileostomy, irritation @ stoma. Rt trigger fingers. RLS History of Any Multi-Drug Resistant Organisms: None Reported Past Surgical History: Appendectomy, Section, Hernia Repair, Hysterectomy Additional Past Surgical History / Comment(s): colostomy, reversal of colostomy, perf. bowel Past Anesthesia/Blood Transfusion Reactions: No Reported Reaction Past Psychological History: Depression Smoking Status: Never smoker Past Alcohol Use History: Occasional Past Drug Use History: None Reported - Past Family History Mother Family Medical History: Congestive Heart Failure (CHF), Diabetes Mellitus, Seizure Disorder Father Family Medical History: COPD Additional Family Medical History / Comment(s): diverticulitis General Exam Limitations: physical limitation General appearance: alert, in no apparent distress Head exam: Present: atraumatic, normocephalic, normal inspection Eye exam: Present: normal appearance, PERRL, EOMI. Absent: scleral icterus, conjunctival injection, periorbital swelling ENT exam: Present: normal exam, mucous membranes moist Neck exam: Present: normal inspection, full ROM. Absent: tenderness, meningismus Respiratory exam: Present: normal lung sounds bilaterally. Absent: respiratory distress, wheezes, rales, rhonchi, stridor Cardiovascular Exam: Present: regular rate, normal rhythm, normal heart sounds. Absent: systolic murmur, diastolic murmur, rubs, gallop, clicks GI/Abdominal exam: Present: soft, tenderness (Significant tenderness noted to the right lower abdomen. Surgical site noted with shahram in place. No purulent discharge from this area or erythema.), normal bowel sounds. Absent: distended, guarding, rebound, rigid Neurological exam: Present: alert Psychiatric exam: Present: normal affect Course Vital Signs 04/06/19 04/06/19 11:55 14:53 Temperature 97.8 F 97 F L Pulse Rate 69 64 Respiratory 18 18 Rate Blood Pressure 133/69 137/82 O2 Sat by Pulse 98 98 Oximetry Medical Decision Making - Medical Decision Making Patient refused contrast stating she has had an ALLERGIC reaction in the past. States she does not want a premedication and does not want the contrast and is aware that this causes a limited exam. 58-year-old female presents to the emergency department for right-sided abdominal pain. This started 2 days ago. Patient states she also notices swelling on the right side of the abdomen. Vitals are stable. Patient is afebrile. No fevers at home. On exam no erythema noted of surgical sites, shahram in place. No drainage. CBC does show mild white count of 13.4. Minimally elevated amylase and lipase however this is not an acute peritonitis and is not or patient's pain is located. CT abdomen and pelvis showed small fluid collections along the infraumbilical line largest measuring 3 cm. There is also a 3.3 x 2.7 cm area in the right. Umbilical subcutaneous tissue that may represent small fluid collection these may be postoperative seromas versus infectious etiology. Dr cuellar discussed this case with Dr. Mckenzie who was comfortable with discharge home with oral antibiotics if patient is comfortable with this. I did discuss with the patient inpatient versus outpatient treatment and she would prefer outpatient treatment. States she has an appointment with him in 2 days and will follow-up. Patient agrees to return if she has any worsening symptoms or fevers. Pain controlled at this time. - Lab Data Result diagrams: 04/06/19 12:26 04/06/19 12:26 Lab Results 04/06/19 04/06/19 04/06/19 Range/Units 12:26 12:26 14:02 WBC 13.4 H (3.8-10.6) k/uL RBC 4.82 (3.80-5.40) m/uL Hgb 12.5 (11.4-16.0) gm/dL Hct 38.8 (34.0-46.0) % MCV 80.6 (80.0-100.0) fL MCH 25.9 (25.0-35.0) pg MCHC 32.2 (31.0-37.0) g/dL RDW 15.1 (11.5-15.5) % Plt Count 362 (150-450) k/uL Neutrophils % 64 % Lymphocytes % 25 % Monocytes % 4 % Eosinophils % 5 % Basophils % 1 % Neutrophils # 8.5 H (1.3-7.7) k/uL Lymphocytes # 3.4 (1.0-4.8) k/uL Monocytes # 0.6 (0-1.0) k/uL Eosinophils # 0.7 (0-0.7) k/uL Basophils # 0.1 (0-0.2) k/uL Sodium 141 (137-145) mmol/L Potassium 4.2 (3.5-5.1) mmol/L Chloride 105 (98-107) mmol/L Carbon Dioxide 25 (22-30) mmol/L Anion Gap 11 mmol/L BUN 19 H (7-17) mg/dL Creatinine 0.89 (0.52-1.04) mg/dL Est GFR (CKD-EPI)AfAm 83 (>60 ml/min/1.73 sqM) Est GFR (CKD-EPI)NonAf 72 (>60 ml/min/1.73 sqM) Glucose 104 H (74-99) mg/dL Calcium 9.3 (8.4-10.2) mg/dL Total Bilirubin 0.4 (0.2-1.3) mg/dL AST 19 (14-36) U/L ALT 19 (9-52) U/L Alkaline Phosphatase 86 (38-126) U/L Total Protein 7.7 (6.3-8.2) g/dL Albumin 4.1 (3.5-5.0) g/dL Amylase 112 H (30-110) U/L Lipase 340 H (23-300) U/L Urine Color Yellow Urine Appearance Clear (Clear) Urine pH 5.0 (5.0-8.0) Ur Specific [place] 1.022 (1.001-1.035) Urine Protein Negative (Negative) Urine Glucose (UA) Negative (Negative) Urine Ketones Negative (Negative) Urine Blood Negative (Negative) Urine Nitrite Negative (Negative) Urine Bilirubin Negative (Negative) Urine Urobilinogen <2.0 (<2.0) mg/dL Ur Leukocyte Esterase Negative (Negative) Disposition Clinical Impression: Fluid collection at surgical site Disposition: HOME SELF-CARE Condition: Good Instructions (If sedation given, give patient instructions): Abdominal Pain (ED) Additional Instructions: Please take antibiotics as directed. Please follow-up with your surgeon at your appointment in 2 days. If you have worsening symptoms, worsening abdominal pain, or fevers return to the emergency department immediately. Prescriptions: Sulfamethox-Tmp 800-160Mg [Bactrim DS 800-160 mg] 1 tab PO Q12HR #20 tab Cephalexin [Keflex] 500 mg PO Q6HR 10 Days #40 cap Is patient prescribed a controlled substance at d/c from ED?: No Referrals: Andres Barbosa MD [Primary Care Provider] - 1-2 days Time of Disposition: 15:32
[2019-04-06 12:56] LABS: Basophils # (A) 0.1 k/uL (0-0.2); Basophils % (A) 1 %; Eosinophils # (A) 0.7 k/uL (0-0.7); Eosinophils % (A) 5 %; HCT 38.8 % (34.0-46.0); HGB 12.5 gm/dL (11.4-16.0); Lymphocytes # (A) 3.4 k/uL (1.0-4.8); Lymphocytes % (A) 25 %; MCH 25.9 pg (25.0-35.0); MCHC 32.2 g/dL (31.0-37.0); MCV 80.6 fL (80.0-100.0); Mean Platelet Volume 7.2; Monocytes # (A) 0.6 k/uL (0-1.0); Monocytes % (A) 4 %; Neutrophils # (A) 8.5 k/uL (1.3-7.7); Neutrophils % (A) 64 %; Platelet Count 362 k/uL (150-450); RBC 4.82 m/uL (3.80-5.40); RDW 15.1 % (11.5-15.5); WBC 13.4 k/uL (3.8-10.6)
[2019-04-06 13:06] LABS: Albumin 4.1 g/dL (3.5-5.0); Calcium 9.3 mg/dL (8.4-10.2); Potassium 4.2 mmol/L (3.5-5.1); Total Bilirubin 0.4 mg/dL (0.2-1.3); Total Protein 7.7 g/dL (6.3-8.2)
[2019-04-06 14:16] LABS: Appearance,Urine Clear (Clear); Bilirubin,Urine Negative (Negative); Blood,Urine Negative (Negative); Color,Urine Yellow; Glucose,Urine (UA) Negative (Negative); Ketones,Urine Negative (Negative); Leukocyte Esterase,Urine Negative (Negative); Nitrite,Urine Negative (Negative); Protein,Urine Negative (Negative); Specific Gravity,Urine 1.022 (1.001-1.035); Urobilinogen,Urine <2.0 mg/dL (<2.0)
--- NOTE | 2019-04-06 14:34 | CT ---
EXAMINATION TYPE: CT abdomen pelvis wo con DATE OF EXAM: 04/06/2019 COMPARISON: 03/03/2019 HISTORY: 58-year-old female with pain, Swelling and post op CT DLP: 999.2 mGycm. Automated exposure control for dose reduction was used. TECHNIQUE: Contiguous axial scanning of the abdomen and pelvis without IV contrast. Coronal and sagit edgar reconstructions performed. FINDINGS: Heart normal size without pericardial effusion. Lung bases clear without pleural effusion. Noncontrast appearance of the liver, gallbladder, adrenal glands, kidneys, spleen, and pancreas show no gross abnormality. No dilated small bowel, free fluid, or free air. Anterior laparotomy change is demonstrated with mesh. Inflammatory fat stranding suggest recent surge ry. There is a 3.3 x 2.7 cm focal area of nodular thickening in the deep subcutaneous adipose layer of th e right periumbilical region with overlying skin shahram. Small fluid collections are present along the midline superficial fascia of the infraumbilical region extending along the scar with 2 areas measuring 2.3 cm, axial image 69 and one area measuring 3.0 cm just below. Contiguous fat stranding and edema is likely postsurgical and limits assessment. There appear to be 2 separate sites of bowel resection and anastomosis, one involving the ileum more anteriorly in the pelvis and a second site involving the rectosigmoid junction where there appears to be an end to side anastomosis. Left-sided colonic diverticulosis. No acute diverticulitis seen. No free air. Bladder under distended. Uterus surgically absent. Neither ovary clearly seen. No osseous destructive process. IMPRESSION: 1. Anterior laparotomy change with mesh repair and associated inflammation likely on the basis of rec ent surgery 2. There are small fluid collections present along the infraumbilical midline laparotomy, largest jocelyn suring 3.0 cm. A 3.3 x 2.7 cm area in the right periumbilical subcutaneous tissues may also represent a small fluid collection. Given recent surgery, these may reflect postoperative seromas. Infectious etiology should be excluded clinically. Follow-up may be helpful. 3. Interval resection of the complex fatty mass of the anterior lower abdomen/pelvis. Correlate with pathology results. 4. 2 sites of bowel surgery in the pelvis with staple lines suggesting resection and anastomosis, one involving the ileum and a second site along the rectosigmoid junction which seems to be an end to si de anastomosis. Clinically correlate. 5. Left-sided colonic diverticulosis.
[2019-04-06 14:54] VITALS: BP 137/82; PULSE 64; TEMP 97
== END 2019-04-06 15:42 | disposition home or self-care (01) ==
LOC: MERGE 11:41 → EC 11:41
DX: T88.8XXA Other specified complications of surgical and medical care, not elsewhere classified, initial encounter (principal); F32.9 Major depressive disorder, single episode, unspecified; Z79.899 Other long term (current) drug therapy; Z88.5 Allergy status to narcotic agent; Z98.890 Other specified postprocedural states
CPT/HCPCS: 36415; 80053; 82150; 83690; 85025; 81003; 74176; 99284; 96374; 96375; J2405; J2270

== ENCOUNTER 2019-04-11 10:21 | Emergency (ER) | payer OTHER ==
[2019-04-11 10:25] VITALS: BP 132/85; PULSE 76; RESP 18; TEMP 98
--- NOTE | 2019-04-11 11:07 | ED ---
Recheck HPI - General Chief Complaint: Recheck/Abnormal Lab/Rx Stated Complaint: incision opened up Time Seen by Provider: 04/11/19 10:40 Source: patient, RN notes reviewed, old records reviewed Mode of arrival: ambulatory Limitations: no limitations - History of Present Illness Initial Comments: Patient is a 38-year-old female who presents emergency Department today for concern of her incision site dehiscence. Patient much end colostomy reversed on March 22. Patient reports that she noticed the area of her incision opening the past 2 days. Wear with staple was placed. Patient reports that she otherwise is been healing well. She reports that she was told she has an intra-abdominal wall infection and is on antibiotics at this time. She states that is been improving. Patient is more concerned for some wound dehiscence at this time. She denies any drainage from the site. Patient denies any recent fever, chills, shortness of breath, chest pain, back pain, abdominal pain, nausea vomiting, numbness or tingling, dysuria or hematuria, constipation or diarrhea, headaches or visual changes, or any other current symptoms - Related Data Home Medications Medication Instructions Recorded Confirmed Ibuprofen [Motrin] 400 mg PO Q6H PRN 12/22/18 04/11/19 Escitalopram [Lexapro] 10 mg PO DAILY 03/16/19 04/11/19 Gabapentin 600 mg PO TID 03/22/19 04/11/19 Hydrocodone/Acetaminophen [[place] 1 tab PO Q6HR PRN 04/06/19 04/11/19 7.5-325] Docusate [Colace] 100 mg PO BID PRN 04/11/19 04/11/19 Previous Rx's Medication Instructions Recorded Cephalexin [Keflex] 500 mg PO Q6HR 10 Days #40 cap 04/06/19 Sulfamethox-Tmp 800-160Mg [Bactrim 1 tab PO Q12HR #20 tab 04/06/19 DS 800-160 mg] Allergies Allergy/AdvReac Type Severity Reaction Status Date / Time propoxyphene Allergy Itching Verified 04/11/19 10:36 [From Dusty] Review of Systems ROS Statement: Those systems with pertinent positive or pertinent negative responses have been documented in the HPI. ROS Other: All systems not noted in ROS Statement are negative. Past Medical History Past Medical History: No Reported History Additional Past Medical History / Comment(s): diverticulitis resulting in colon resection w/ ileostomy, irritation @ stoma. Rt trigger fingers. RLS History of Any Multi-Drug Resistant Organisms: None Reported Past Surgical History: Appendectomy, Section, Hernia Repair, Hysterectomy Additional Past Surgical History / Comment(s): colostomy, reversal of colostomy, perf. bowel Past Anesthesia/Blood Transfusion Reactions: No Reported Reaction Past Psychological History: Depression Smoking Status: Never smoker Past Alcohol Use History: Occasional Past Drug Use History: None Reported - Past Family History Mother Family Medical History: Congestive Heart Failure (CHF), Diabetes Mellitus, Seizure Disorder Father Family Medical History: COPD Additional Family Medical History / Comment(s): diverticulitis General Exam Limitations: no limitations General appearance: alert, in no apparent distress Head exam: Present: atraumatic, normocephalic, normal inspection Eye exam: Present: normal appearance, PERRL, EOMI. Absent: scleral icterus, conjunctival injection, periorbital swelling ENT exam: Present: normal exam, mucous membranes moist Neck exam: Present: normal inspection. Absent: tenderness, meningismus, lymphadenopathy Respiratory exam: Present: normal lung sounds bilaterally. Absent: respiratory distress, wheezes, rales, rhonchi, stridor Cardiovascular Exam: Present: regular rate, normal rhythm, normal heart sounds. Absent: systolic murmur, diastolic murmur, rubs, gallop, clicks GI/Abdominal exam: Present: soft, normal bowel sounds, other (Has a 1 cm wound dehiscence over the colostomy reversal site. Is on the right side of her abdomen and intra-abdominal crease.). Absent: distended, tenderness, guarding, rebound, rigid Extremities exam: Present: normal inspection, full ROM, normal capillary refill. Absent: tenderness, pedal edema, joint swelling, calf tenderness Back exam: Present: normal inspection Neurological exam: Present: alert, oriented X3, CN II-XII intact Psychiatric exam: Present: normal affect, normal mood Course Vital Signs 04/11/19 10:22 Temperature 98 F Pulse Rate 76 Respiratory 18 Rate Blood Pressure 132/85 O2 Sat by Pulse 97 Oximetry Medical Decision Making - Medical Decision Making Patient is a 58-year-old female presents for concern for wound dehiscence of her colostomy reversal site. She has a 17 m area of one doesn't otherwise appears well. No drainage. No erythema around the site. At this time patient's wound was cleaned, and a butterfly Steri-Strip was placed over the area. I discussed that Patient should follow-up with her surgeon otherwise do no heavy lifting. The wound otherwise appears well and not concerned for significant dehiscence. Discussed that likely her from the inside out. All questions answered return parameters were discussed. Disposition Clinical Impression: Wound dehiscence Disposition: HOME SELF-CARE Condition: Good Instructions (If sedation given, give patient instructions): Wound Dehiscence (ED) Additional Instructions: Patient advised to follow-up with her surgeon. Keep the area clean and dry. If there is any signs of further wound dehiscence she can return follow up with her surgeon. Is patient prescribed a controlled substance at d/c from ED?: No Referrals: Andres Barbosa MD [Primary Care Provider] - 1-2 days Time of Disposition: 11:06
== END 2019-04-11 11:14 | disposition home or self-care (01) ==
LOC: EC 10:21
DX: T81.31XA Disruption of external operation (surgical) wound, not elsewhere classified, initial encounter (principal); F32.9 Major depressive disorder, single episode, unspecified; Z93.3 Colostomy status; Z93.2 Ileostomy status; Z90.49 Acquired absence of other specified parts of digestive tract; Z90.710 Acquired absence of both cervix and uterus; Z79.899 Other long term (current) drug therapy; Z88.5 Allergy status to narcotic agent
CPT/HCPCS: 99283

== ENCOUNTER → 2019-05-10 | Outpatient (CLI) | payer OTHER ==
[2019-05-10 13:04] VITALS: BP 120/85; PULSE 65; RESP 18; TEMP 97.8
[2019-05-10 15:05] LABS: HCT 41.3 % (34.0-46.0); HGB 13.6 gm/dL (11.4-16.0); MCH 26.9 pg (25.0-35.0); MCHC 32.8 g/dL (31.0-37.0); MCV 81.9 fL (80.0-100.0); Mean Platelet Volume 7.1; Platelet Count 373 k/uL (150-450); RBC 5.04 m/uL (3.80-5.40); RDW 14.7 % (11.5-15.5)
[2019-05-10 20:03] LABS: African American GFR (CKD) 72.4 (60.0-200.0); Albumin 4.2 g/dL (3.80-4.90); Albumin/Globulin Ratio 1.5 (1.60-3.17); Anion Gap 11.4 mmol/L (4.00-12.00); Calcium 9.4 mg/dL (8.7-10.3); Carbon Dioxide 26.6 mmol/L (21.6-31.8); Globulin 2.8 g/dL (1.6-3.3); Potassium 4.7 mmol/L (3.5-5.5); Total Bilirubin 0.3 mg/dL (0.3-1.2)
[2019-05-10 20:19] LABS: Iron Saturation 13.55 (12.00-45.00)
[2019-05-10 20:27] LABS: Vitamin D 25 Hydroxy 21.6 ng/mL (30.0-100.0)
[2019-05-10 20:28] LABS: Ferritin 39.8 ng/mL (10.0-291.0)
[2019-05-10 20:31] LABS: Folate, Serum 12.8 ng/mL
[2019-05-11 01:00] LABS: Hemoglobin A1C 5.4 % (4.0-6.0)
--- NOTE | 2019-05-13 11:18 | P.HPBAR ---
Bariatric H&P - History & Physicial H&P Date: 05/13/19 History & Physicial: Visit/CC: new pt Patient initial contact: March 2019 Initial weight: 111.901 kg Initial weight in pounds: 246.70 Height: 5 ft 4 in Initial BMI: Last weight: Current weight: 111.901 kg Current weight in pounds: Current BMI: [place] body weight (based on NIH guidelines): Excess body weight loss: The patient is a 58 year-old F who presents for Bariatric Assessment. Patient presents today for new patient consultation. She's had lifetime problems obesity. Her BMI is 43. Past Medical History Past Medical History: No Reported History Additional Past Medical History / Comment(s): diverticulitis resulting in colon resection w/ ileostomy, irritation @ stoma. Rt trigger fingers. RLS History of Any Multi-Drug Resistant Organisms: None Reported Past Surgical History: Appendectomy, Section, Hernia Repair, Hysterectomy Additional Past Surgical History / Comment(s): colostomy, reversal of colostomy, perf. bowel Past Anesthesia/Blood Transfusion Reactions: No Reported Reaction Past Psychological History: Depression Smoking Status: Never smoker Past Alcohol Use History: Occasional Additional Past Alcohol Use History / Comment(s): Smoked 1979, occ use only for 1 1/2 years. Past Drug Use History: None Reported Additional Drug Use History / Comment(s): Hx crack cocaine for 7 years, none since 2007 - Past Family History Mother Family Medical History: Congestive Heart Failure (CHF), Diabetes Mellitus, Seizure Disorder Father Family Medical History: COPD Additional Family Medical History / Comment(s): diverticulitis Surgical - Exam Vital Signs Temp Pulse Resp BP Pulse Ox 97.8 F 65 18 120/85 97 05/10/19 12:57 05/10/19 12:57 05/10/19 12:57 05/10/19 12:57 05/10/19 12:57 - General well developed, well nourished, no distress - Abdomen Abdomen: soft, non tender Results - Labs 05/10/19 14:30 05/10/19 14:30 Bariatric Assessment & Plan Plan: For Heidi. Patient has a good understanding of the sleeve gastric. We went over the risks and benefits of procedure. We discussed possible staple line disruption, bleeding and infection. Patient be scheduled for EGD. Bariatric Checklist Checklist: Plan: Checklist: EGD: 1. Hiatal hernia: 2. H. Pylori: HgbA1c: Vitamin D: Smoking: Never smoker Primary care physician referral: [facility] Psychiatry clearance: Cardiology clearance: Sleep study: Diet journal: VTE risk score: VTE risk level: Rehab needs at discharge:
== END ==
LOC: BARWHC3 12:39
PROVIDERS: ATTEND Surgery
DX: E66.9 Obesity, unspecified (principal); D50.8 Other iron deficiency anemias; E55.9 Vitamin D deficiency, unspecified; Z68.41 Body mass index [BMI] 40.0-44.9, adult
CPT/HCPCS: 84425; 80053; 82728; 82746; 83540; 83550; 85027; 82306; 83036; G0463; 99201

== ENCOUNTER → 2019-06-07 | Outpatient (CLI) | payer OTHER ==
[2019-06-07 13:32] VITALS: BP 130/86; PULSE 64; TEMP 97.7; BMI 42.9
--- NOTE | 2019-06-07 16:20 | P.HPBAR ---
Bariatric H&P - History & Physicial H&P Date: 06/07/19 History & Physicial: Visit/CC: 2nd bariatric consult Patient initial contact: March 2019 Initial weight: 111.901 kg Initial weight in pounds: 246.70 Height: 5 ft 4 in Initial BMI: 42.3 Last weight: Current weight: 113.398 kg Current weight in pounds: 250.00 Current BMI: 42.9 [place] body weight (based on NIH guidelines): 54.431 kg Excess body weight loss: The patient is a 58 year-old F who presents for Bariatric Assessment. Patient presents today for presurgical consultation. Patient is doing her physician or to weight loss visits here at clinic. Her current weight is 250 pounds. She is getting 4 pounds her last visit. She is morbidly obese with BMI 43. Past Medical History Past Medical History: No Reported History Additional Past Medical History / Comment(s): diverticulitis resulting in colon resection w/ ileostomy, irritation @ stoma. Rt trigger fingers. RLS History of Any Multi-Drug Resistant Organisms: None Reported Past Surgical History: Appendectomy, Section, Hernia Repair, Hysterectomy Additional Past Surgical History / Comment(s): colostomy, reversal of colostomy, perf. bowel Past Anesthesia/Blood Transfusion Reactions: No Reported Reaction Past Psychological History: Depression Smoking Status: Never smoker Past Alcohol Use History: Occasional Additional Past Alcohol Use History / Comment(s): Smoked 1979, occ use only for 1 1/2 years. Past Drug Use History: None Reported Additional Drug Use History / Comment(s): Hx crack cocaine for 7 years, none since 2007 - Past Family History Mother Family Medical History: Congestive Heart Failure (CHF), Diabetes Mellitus, Seizure Disorder Father Family Medical History: COPD Additional Family Medical History / Comment(s): diverticulitis Surgical - Exam Vital Signs Temp Pulse BP 97.7 F 64 130/86 06/07/19 13:18 06/07/19 13:18 06/07/19 13:18 - General well developed, well nourished, no distress - Eyes PERRL - ENT normal pinna - Neck no masses - Respiratory normal expansion - Cardiovascular Rhythm: regular - Abdomen Abdomen: soft, non tender Bariatric Assessment & Plan Plan: Morbid obesity, BMI 43. Patient will follow-up in one month. We will over the risks and benefits of the gastric sleeve again. She has a very good understanding of the procedure. Bariatric Checklist Checklist: Plan: Checklist: EGD: 1. Hiatal hernia: 2. H. Pylori: HgbA1c: Vitamin D: Smoking: Never smoker Primary care physician referral: Dr. Winkler Psychiatry clearance: Cardiology clearance: Sleep study: Diet journal: VTE risk score: VTE risk level: Rehab needs at discharge:
== END ==
LOC: BARWHC3 12:42
PROVIDERS: ATTEND Surgery
DX: E66.01 Morbid (severe) obesity due to excess calories (principal); Z68.41 Body mass index [BMI] 40.0-44.9, adult
CPT/HCPCS: 99211

== ENCOUNTER → 2019-07-05 | Outpatient (CLI) | payer OTHER ==
[2019-07-05 16:04] VITALS: BP 130/74; PULSE 68; TEMP 97.9; BMI 43.3
--- NOTE | 2019-07-05 17:56 | P.HPBAR ---
Bariatric H&P - History & Physicial H&P Date: 07/05/19 History & Physicial: Visit/CC: weight check Patient initial contact: March 2019 Initial weight: 111.901 kg Initial weight in pounds: 246.70 Height: 5 ft 4 in Initial BMI: 42.3 Last weight: Current weight: 114.487 kg Current weight in pounds: 252.40 Current BMI: 43.3 [place] body weight (based on NIH guidelines): 54.431 kg Excess body weight loss: The patient is a 58 year-old F who presents for Bariatric Assessment. Patient presents today for sleeve gastrectomy follow-up. Her weight has been stable. She's had some mild GERD. Past Medical History Past Medical History: No Reported History Additional Past Medical History / Comment(s): diverticulitis resulting in colon resection w/ ileostomy, irritation @ stoma. Rt trigger fingers. RLS History of Any Multi-Drug Resistant Organisms: None Reported Past Surgical History: Appendectomy, Section, Hernia Repair, Hysterectomy Additional Past Surgical History / Comment(s): colostomy, reversal of colostomy, perf. bowel Past Anesthesia/Blood Transfusion Reactions: No Reported Reaction Smoking Status: Never smoker - Past Family History Mother Family Medical History: Congestive Heart Failure (CHF), Diabetes Mellitus, Seizure Disorder Father Family Medical History: COPD Additional Family Medical History / Comment(s): diverticulitis Surgical - Exam Vital Signs Temp Pulse BP 97.9 F 68 130/74 07/05/19 16:00 07/05/19 16:00 07/05/19 16:00 - General well developed, well nourished, no distress - Eyes PERRL - ENT normal pinna - Neck no masses - Respiratory normal expansion - Cardiovascular Rhythm: regular - Abdomen Abdomen: soft, non tender Bariatric Assessment & Plan Plan: Status post sleeve gastrectomy. Patient with stable. Her GERD is minimal and will be observed. She'll follow-up in 4 weeks. Bariatric Checklist Checklist: Plan: Checklist: EGD: 1. Hiatal hernia: 2. H. Pylori: HgbA1c: Vitamin D: Smoking: Never smoker Primary care physician referral: Dr. Winkler Psychiatry clearance: Cardiology clearance: Sleep study: Diet journal: VTE risk score: VTE risk level: Rehab needs at discharge:
== END | disposition home or self-care (01) ==
LOC: BARWHC3 15:33
PROVIDERS: ATTEND Surgery
DX: Z48.815 Encounter for surgical aftercare following surgery on the digestive system (principal); Z98.84 Bariatric surgery status; K21.9 Gastro-esophageal reflux disease without esophagitis
CPT/HCPCS: 99211

== ENCOUNTER → 2019-08-02 | Outpatient (CLI) | payer OTHER ==
[2019-08-03 08:11] VITALS: BP 144/78; PULSE 70; TEMP 97.8; BMI 44.2
--- NOTE | 2019-09-06 15:22 | P.HPBAR ---
Bariatric H&P - History & Physicial H&P Date: 08/02/19 History & Physicial: Visit/CC: egd follow up Patient initial contact: March 2019 Initial weight: 111.901 kg Initial weight in pounds: 246.70 Height: 5 ft 4 in Initial BMI: 42.3 Last weight: Current weight: 117.027 kg Current weight in pounds: 258.00 Current BMI: 44.2 [place] body weight (based on NIH guidelines): 54.431 kg Excess body weight loss: The patient is a 59 year-old F who presents for Bariatric Assessment. Patient presents today for presurgical consultation. She just underwent her EGD. She is morbidly obese with BMI 44. Past Medical History Past Medical History: No Reported History Additional Past Medical History / Comment(s): diverticulitis resulting in colon resection w/ ileostomy, irritation @ stoma. Rt trigger fingers. RLS History of Any Multi-Drug Resistant Organisms: None Reported Past Surgical History: Appendectomy, Section, Hernia Repair, Hysterectomy Additional Past Surgical History / Comment(s): colostomy, reversal of colostomy, perf. bowel Past Anesthesia/Blood Transfusion Reactions: No Reported Reaction Past Psychological History: Depression Smoking Status: Never smoker Past Alcohol Use History: Occasional Additional Past Alcohol Use History / Comment(s): Smoked 1979, occ use only for 1 1/2 years. Past Drug Use History: None Reported Additional Drug Use History / Comment(s): Hx crack cocaine for 7 years, none since 2007 - Past Family History Mother Family Medical History: Congestive Heart Failure (CHF), Diabetes Mellitus, Seizure Disorder Father Family Medical History: COPD Additional Family Medical History / Comment(s): diverticulitis Surgical - Exam Vital Signs Temp Pulse BP 97.8 F 70 144/78 08/02/19 14:00 08/02/19 14:00 08/02/19 14:00 - General well developed, well nourished, moderate distress - Eyes PERRL - ENT normal pinna - Abdomen Abdomen: soft, non tender Bariatric Assessment & Plan Plan: Morbid obesity, BMI 44. Patient has an excellent understanding of the sleeve gastrectomy. Patient was sent the risk of possible gastric staple line disruption, bleeding and scarring. Bariatric Checklist Checklist: Plan: Checklist: EGD: 1. Hiatal hernia: 2. H. Pylori: HgbA1c: Vitamin D: Smoking: Never smoker Primary care physician referral: Dr. Winkler Psychiatry clearance: Cardiology clearance: Sleep study: Diet journal: VTE risk score: VTE risk level: Rehab needs at discharge:
== END | disposition home or self-care (01) ==
LOC: BARWHC3 13:00
PROVIDERS: ATTEND Surgery
DX: E66.01 Morbid (severe) obesity due to excess calories (principal); Z68.41 Body mass index [BMI] 40.0-44.9, adult; Z90.49 Acquired absence of other specified parts of digestive tract; Z98.890 Other specified postprocedural states
CPT/HCPCS: 99211

== ENCOUNTER → 2019-09-13 | Outpatient (CLI) | payer OTHER ==
[2019-09-13 13:13] VITALS: BP 144/95; PULSE 73; TEMP 98.2; BMI 43.4
--- NOTE | 2019-09-13 16:05 | P.HPBAR ---
Bariatric H&P - History & Physicial H&P Date: 09/13/19 History & Physicial: Visit/CC: presurgical swl visit Patient initial contact: March 2019 Initial weight: 111.901 kg Initial weight in pounds: 246.70 Height: 5 ft 4 in Initial BMI: 42.3 Last weight: Current weight: 114.759 kg Current weight in pounds: 253.00 Current BMI: 43.4 [place] body weight (based on NIH guidelines): 54.431 kg Excess body weight loss: The patient is a 59 year-old F who presents for Bariatric Assessment. Patient presents today for presurgical consultation. She has lost 5 pounds her last visit. She has complaints of pain from her incisional hernia. Past Medical History Past Medical History: No Reported History Additional Past Medical History / Comment(s): diverticulitis resulting in colon resection w/ ileostomy, irritation @ stoma. Rt trigger fingers. RLS History of Any Multi-Drug Resistant Organisms: None Reported Past Surgical History: Appendectomy, Section, Hernia Repair, Hysterectomy Additional Past Surgical History / Comment(s): colostomy, reversal of colostomy, perf. bowel Past Anesthesia/Blood Transfusion Reactions: No Reported Reaction Past Psychological History: Depression Smoking Status: Never smoker Past Alcohol Use History: Occasional Additional Past Alcohol Use History / Comment(s): Smoked 1979, occ use only for 1 1/2 years. Past Drug Use History: None Reported Additional Drug Use History / Comment(s): Hx crack cocaine for 7 years, none since 2007 - Past Family History Mother Family Medical History: Congestive Heart Failure (CHF), Diabetes Mellitus, Seizure Disorder Father Family Medical History: COPD Additional Family Medical History / Comment(s): diverticulitis Surgical - Exam Vital Signs Temp Pulse BP 98.2 F 73 144/95 09/13/19 13:10 09/13/19 13:10 09/13/19 13:10 - General well developed, well nourished, no distress - Eyes PERRL - Abdomen Abdomen: soft Hernia: incisional (*Epigastric) Bariatric Assessment & Plan Plan: Morbid obesity, BMI 43. Patient will be authorized for gastric sleeve surgery once her requirements of met. She will follow-up in 4 weeks. Bariatric Checklist Checklist: Plan: Checklist: EGD: 1. Hiatal hernia: 2. H. Pylori: HgbA1c: Vitamin D: Smoking: Never smoker Primary care physician referral: Dr. Winkler Psychiatry clearance: Cardiology clearance: Sleep study: Diet journal: VTE risk score: VTE risk level: Rehab needs at discharge:
== END | disposition home or self-care (01) ==
LOC: BARWHC3 12:56
PROVIDERS: ATTEND Surgery
DX: E66.01 Morbid (severe) obesity due to excess calories (principal); Z68.41 Body mass index [BMI] 40.0-44.9, adult
CPT/HCPCS: 99211

== ENCOUNTER → 2019-09-20 | Outpatient (CLI) | payer OTHER ==
[2019-09-20 14:47] VITALS: BP 133/90; PULSE 79; TEMP 97.8; BMI 43.4
[2019-09-20 14:48] VITALS: RESP 16
--- NOTE | 2019-09-20 14:48 | P.HPBAR ---
Bariatric H&P - History & Physicial H&P Date: 09/20/19 History & Physicial: Visit/CC: weight check Patient initial contact: March 2019 Initial weight: 111.901 kg Initial weight in pounds: 246.70 Height: 5 ft 4 in Initial BMI: 42.3 Last weight: Current weight: 114.759 kg Current weight in pounds: 253.00 Current BMI: 43.4 [place] body weight (based on NIH guidelines): 54.431 kg Excess body weight loss: The patient is a 59 year-old F who presents for Bariatric Assessment. Patient resents today for presurgical consultation. Her weight has been stable. She has complete abdominal wall pain near her hernia. Past Medical History Past Medical History: No Reported History Additional Past Medical History / Comment(s): diverticulitis resulting in colon resection w/ ileostomy, irritation @ stoma. Rt trigger fingers. RLS History of Any Multi-Drug Resistant Organisms: None Reported Past Surgical History: Appendectomy, Section, Hernia Repair, Hysterectomy Additional Past Surgical History / Comment(s): colostomy, reversal of colostomy, perf. bowel Past Anesthesia/Blood Transfusion Reactions: No Reported Reaction Smoking Status: Never smoker - Past Family History Mother Family Medical History: Congestive Heart Failure (CHF), Diabetes Mellitus, Seizure Disorder Father Family Medical History: COPD Additional Family Medical History / Comment(s): diverticulitis Surgical - Exam Vital Signs Temp Pulse BP 97.8 F 79 133/90 09/20/19 14:42 09/20/19 14:42 09/20/19 14:42 - General well developed, well nourished, no distress - Eyes PERRL - ENT normal pinna - Neck no masses - Respiratory normal expansion - Cardiovascular Rhythm: regular - Abdomen Abdomen: soft, non tender Bariatric Assessment & Plan Plan: Morbid obesity. BMI is 44. Patient follow-up only. We will attempt to authorize for sleeve gastrectomy once she has met her insurance criteria. Bariatric Checklist Checklist: Plan: Checklist: EGD: 1. Hiatal hernia: 2. H. Pylori: HgbA1c: Vitamin D: Smoking: Never smoker Primary care physician referral: Dr. Winkler Psychiatry clearance: Cardiology clearance: Sleep study: Diet journal: VTE risk score: VTE risk level: Rehab needs at discharge:
== END | disposition home or self-care (01) ==
LOC: BARWHC3 13:56
PROVIDERS: ATTEND Surgery
DX: E66.01 Morbid (severe) obesity due to excess calories (principal); Z68.41 Body mass index [BMI] 40.0-44.9, adult; Z90.49 Acquired absence of other specified parts of digestive tract; Z98.890 Other specified postprocedural states
CPT/HCPCS: 99211

== ENCOUNTER → 2019-09-27 | Outpatient (CLI) | payer OTHER ==
[2019-09-27 13:35] LABS: HCT 41.8 % (34.0-46.0); HGB 13.9 gm/dL (11.4-16.0); MCH 27.2 pg (25.0-35.0); MCHC 33.1 g/dL (31.0-37.0); MCV 82.2 fL (80.0-100.0); Mean Platelet Volume 8.3; Platelet Count 327 k/uL (150-450); RBC 5.09 m/uL (3.80-5.40); RDW 14.3 % (11.5-15.5); WBC 10.5 k/uL (3.8-10.6)
[2019-09-27 21:36] LABS: % Iron Saturation 11.66 (12.00-45.00); African American GFR (CKD) 81.7 (60.0-200.0); Albumin 4.2 g/dL (3.80-4.90); Albumin/Globulin Ratio 1.62 (1.60-3.17); Anion Gap 9.8 mmol/L (4.00-12.00); BUN/Creat Ratio 22.22 Ratio (12.00-20.00); Calcium 9.5 mg/dL (8.7-10.3); Carbon Dioxide 25.2 mmol/L (21.6-31.8); Globulin 2.6 g/dL (1.6-3.3); Non-African American GFR(CKD) 70.5 (60.0-200.0); Potassium 5.6 mmol/L (3.5-5.5); Total Bilirubin 0.4 mg/dL (0.2-1.2); Total Protein 6.8 g/dL (6.2-8.2)
== END | disposition home or self-care (01) ==
LOC: LABWHC1 11:47
PROVIDERS: ATTEND Surgery
DX: D50.8 Other iron deficiency anemias (principal); E55.9 Vitamin D deficiency, unspecified; E44.0 Moderate protein-calorie malnutrition; E66.01 Morbid (severe) obesity due to excess calories
CPT/HCPCS: 36415; 80053; 82306; 82607; 82746; 83540; 83550; 84425; 84443; 85027

== ENCOUNTER → 2019-10-04 | Outpatient (CLI) | payer OTHER ==
[2019-10-04 11:08] VITALS: BMI 43.4
== END | disposition home or self-care (01) ==
LOC: BARWHC3 08:26
PROVIDERS: ATTEND Surgery
DX: E66.01 Morbid (severe) obesity due to excess calories (principal); Z68.41 Body mass index [BMI] 40.0-44.9, adult
CPT/HCPCS: 97804

== ENCOUNTER → 2019-10-18 | Outpatient (CLI) | payer OTHER ==
[2019-10-18 13:12] VITALS: BP 140/81; PULSE 66; RESP 16; TEMP 97.8; BMI 43.4
== END | disposition home or self-care (01) ==
LOC: BARWHC3 12:50
PROVIDERS: ATTEND Surgery
DX: Z01.818 Encounter for other preprocedural examination (principal); K43.2 Incisional hernia without obstruction or gangrene; Z90.49 Acquired absence of other specified parts of digestive tract
CPT/HCPCS: 99211

== ENCOUNTER 2019-12-01 06:20 | Day surgery (SDC) | payer OTHER ==
[2019-11-26 10:39] VITALS: BMI 43.4
[~2019-12-01 06:20] MED LIST changes: -DEXAMETHASONE SOD PHOSPHATE 10 MG/ML 1 ML VIAL IV ONE; -HYDROmorphone 0.5 MG/0.5 ML SYRINGE IVP PRN; -ONDANSETRON 4 MG/2 ML VIAL IVP ONE; -SCOPOLAMINE 1.5MG/72HR PATCH TRANSDERM ONE; -metroNIDAZOLE-NS PMX 500 MG in SALINE 1 100ML.BAG IVPB ONE
[2019-12-01] MEDS: LACTATED RINGERS 1,000 ML IV SCH (06:47)
[2019-12-01] MEDS ORDERED: SCOPOLAMINE 1.5MG/72HR PATCH TRANSDERM ONE (06:50)
[2019-12-01] MEDS ORDERED: DEXAMETHASONE SOD PHOSPHATE 10 MG/ML 1 ML VIAL IV ONE (06:50)
[2019-12-01] MEDS ORDERED: LIDOCAINE 1% (10MG/ML) FOR IV START INTRADERMA PRN (06:50)
[2019-12-01] MEDS ORDERED: ONDANSETRON 4 MG/2 ML VIAL IVP ONE (06:50)
[2019-12-01] MEDS ORDERED: MIDAZOLAM 2 MG/2 ML VIAL IVP ONE (07:32)
[2019-12-01] MEDS ORDERED: BUPIVACAIN-EPI 0.25%-1:200,000 30 ML VIAL SQ ONE (08:12)
--- NOTE | 2019-12-01 09:58 | P.ANPRN ---
Procedure Note - Anesthesia - Nerve Block Performed Rectus Abdominis Date of Procedure: 12/01/19 Procedure Start Time: 07:31 Procedure Stop Time: 07:46 Location of Patient: PreOp Indication: Acute Post-Operative Pain, Requested by Surgeon (Magaly) Sedation Type: Sedate with meaningful contact maintained Preparation: Sterile Prep Position: Supine Catheter: None Needle Types: [place] Needle Gauge: 21 Ultrasound used to visualize needle placement: Yes Ultrasound used to observe medication spread: Yes Injectate: 0.5% Ropivacaine (see comment for volume) (30cc total, 15cc/side) Blood Aspirated: No Pain Paresthesia on Injection Noted: No Resistance on Injection: Normal Image Stored and Saved: Yes Events: Uneventful and Well Tolerated
[2019-12-01] MEDS ORDERED: LACTATED RINGERS 1,000 ML IV ONE ×2 (10:02→10:29)
--- NOTE | 2019-12-01 10:24 | P.GSHP ---
History of Present Illness H&P Date: 12/01/19 Chief Complaint: Incisional hernia This 59-year-old female who is developed an incisional hernia. Patient's previous history of exploratory laparotomy and bowel resection. Patient developed pain and tenderness at her hernia site. She presents today for repair with mesh. Past Medical History Past Medical History: No Reported History Additional Past Medical History / Comment(s): diverticulitis resulting in colon resection w/ ileostomy (later reversed),. Rt trigger fingers. , osteoarthritis/chronic low back pain (Takes Gabapentin,[place],and Ibuprofen). History of Any Multi-Drug Resistant Organisms: None Reported Past Surgical History: Appendectomy, Bowel Resection, Section, Hernia Repair, Hysterectomy Additional Past Surgical History / Comment(s): colostomy, reversal of colostomy,-surgery- perf. bowel Past Anesthesia/Blood Transfusion Reactions: No Reported Reaction Smoking Status: Former smoker - Past Family History Mother Family Medical History: Congestive Heart Failure (CHF), Diabetes Mellitus, Seizure Disorder Father Family Medical History: COPD Additional Family Medical History / Comment(s): diverticulitis Medications and Allergies Home Medications Medication Instructions Recorded Confirmed Type Ibuprofen [Motrin] 400 mg PO Q6H PRN 12/22/18 12/01/19 History Escitalopram [Lexapro] 5 mg PO DAILY 06/07/19 12/01/19 History Ferrous Sulfate [Iron (65 MG 65 mg PO DAILY 06/07/19 12/01/19 History Elemental)] Gabapentin 600 mg PO TID 06/07/19 12/01/19 History HYDROcodone/APAP 5-325MG [[place] 5] 1 tab PO Q4H PRN 06/07/19 12/01/19 History Allergies Allergy/AdvReac Type Severity Reaction Status Date / Time propoxyphene Allergy Itching Verified 12/01/19 06:52 [From [facility]] Surgical - Exam Vital Signs Temp Pulse Resp BP Pulse Ox 96.2 F L 69 16 147/84 96 12/01/19 06:47 12/01/19 06:47 12/01/19 06:47 12/01/19 06:47 12/01/19 06:47 - General well developed, well nourished, no distress - Eyes PERRL - ENT normal pinna - Neck no masses - Respiratory normal expansion - Cardiovascular Rhythm: regular - Abdomen Patient is a large midline incisional hernia located superior portion of her upper midline scar. The hernia is reducible Abdomen: soft, non tender Assessment and Plan Assessment: Incisional hernia. We'll perform repair with mesh.
[2019-12-01] MEDS ORDERED: HYDROmorphone 0.5 MG/0.5 ML SYRINGE IVP PRN (10:29)
[2019-12-01] MEDS ORDERED: ONDANSETRON 4 MG/2 ML VIAL IVP PRN (10:29)
[2019-12-01] MEDS ORDERED: NALOXONE 0.4 MG/ML 1 ML VIAL IV PRN (10:29)
--- NOTE | 2019-12-01 10:29 | P.OP ---
Date of Procedure: 12/01/19 Preoperative Diagnosis: Incisional hernia Postoperative Diagnosis: Incisional hernia Procedure(s) Performed: Incisional hernia Anesthesia: NITHIN Surgeon: Anuj Mckenzie Estimated Blood Loss (ml): 100 Pathology: none sent Condition: stable Description of Procedure: The patient's placed on the operating table in supine position. He received general anesthesia. Her abdomen was prepped and draped usual fashion. The abdomen was incised in midline scar. Using left cautery the subcutaneous tissue divided. The hernia sac was seen. The hernia sac was then dissected free from some taste tissues. The dissection and was taken laterally to the abdominal wall fascia. The hernia defect measured approximately 20 x 5 cm. Once subcutaneous tissue was divided off of the abdominal wall the fascia was repaired with interrupted [id number] Ethibond sutures. Once the fascia was repaired the fascial repair was then oversewn with number once traffic suture. Then a piece of Prolene mesh was placed over top the repair and secured with secured strap tacker. A KATIE drains placed through separate stab incision in position on the inferior portion of the repair. And then the drain was secured with 2-0 nylon. Brenda's fascia close [place]. Skin was closed shahram. Abdominal binder was placed. Patient top she will was sent to recovery room in stable condition.
[2019-12-01] MEDS: HYDROmorphone 0.5 MG/0.5 ML SYRINGE IVP PRN ×2 (10:32→11:12)
[2019-12-01] MEDS ORDERED: KETOROLAC 30 MG/ML 1 ML VIAL IVP ONE (10:35)
[2019-12-01] MEDS: KETOROLAC 30 MG/ML 1 ML VIAL IVP SCH ×3 (10:45→23:09)
[2019-12-01] MEDS: HYDROcodone/APAP 5-325MG 1 EACH TAB PO PRN (19:53)
[2019-12-01] MEDS: GABAPENTIN 300 MG CAP PO SCH (22:23)
[2019-12-02] MEDS: HYDROcodone/APAP 5-325MG 1 EACH TAB PO PRN ×2 (01:58→15:24)
[2019-12-02] MEDS: KETOROLAC 30 MG/ML 1 ML VIAL IVP SCH ×2 (05:37→11:15)
[2019-12-02] MEDS: LACTATED RINGERS 1,000 ML IV SCH (05:37)
[2019-12-02] MEDS: GABAPENTIN 300 MG CAP PO SCH (07:46)
--- NOTE | 2019-12-02 08:35 | P.CONS ---
History of Present Illness - Reason for Consult Consult date: 12/02/19 - Chief Complaint Status post repair. - History of Present Illness This is a history and physical on a 59-year-old white female who is postop day #1 for hernia repair. She is seen postop. She has underlying history of depression and chronic pain elements. She's doing quite well. No significant nausea or vomiting stated. There is some mild to moderate cough. Review of Systems Constitutional: Denies chills, Denies fever Eyes: denies blurred vision, denies pain Ears, nose, mouth and throat: Denies headache, Denies sore throat Cardiovascular: Denies chest pain, Denies shortness of breath Respiratory: Denies cough Gastrointestinal: Denies abdominal pain, Denies diarrhea, Denies nausea, Denies vomiting Past Medical History Past Medical History: No Reported History Additional Past Medical History / Comment(s): diverticulitis resulting in colon resection w/ ileostomy (later reversed),. Rt trigger fingers. , osteoarthritis/chronic low back pain (Takes Gabapentin,[place],and Ibuprofen). History of Any Multi-Drug Resistant Organisms: None Reported Past Surgical History: Appendectomy, Bowel Resection, Section, Hernia Repair, Hysterectomy Additional Past Surgical History / Comment(s): colostomy, reversal of colostomy,-surgery- perf. bowel Past Anesthesia/Blood Transfusion Reactions: No Reported Reaction Past Psychological History: Depression Additional Psychological History / Comment(s): Takes Lexapro daily Smoking Status: Former smoker Past Alcohol Use History: Occasional Additional Past Alcohol Use History / Comment(s): started smoking at age 21 quit 1979, smoked 1/4 pack a week. quit drinking alcohol Past Drug Use History: Cocaine Additional Drug Use History / Comment(s): Hx crack cocaine for 7 years, none since 2007 - Past Family History Mother Family Medical History: Congestive Heart Failure (CHF), Diabetes Mellitus, Seizure Disorder Father Family Medical History: COPD Additional Family Medical History / Comment(s): diverticulitis Medications and Allergies Home Medications Medication Instructions Recorded Confirmed Type Ibuprofen [Motrin] 400 mg PO Q6H PRN 12/22/18 12/01/19 History Escitalopram [Lexapro] 5 mg PO DAILY 06/07/19 12/01/19 History Ferrous Sulfate [Iron (65 MG 65 mg PO DAILY 06/07/19 12/01/19 History Elemental)] Gabapentin 600 mg PO TID 06/07/19 12/01/19 History HYDROcodone/APAP 5-325MG [[place] 5] 1 tab PO Q4H PRN 06/07/19 12/01/19 History Allergies Allergy/AdvReac Type Severity Reaction Status Date / Time propoxyphene Allergy Itching Verified 12/01/19 06:52 [From [facility]] Physical Exam Vitals: Vital Signs Temp Pulse Pulse Pulse Resp BP Pulse Ox 12/02/19 04:48 98.3 F 69 22 164/86 93 L 12/01/19 21:00 98.0 F 76 16 143/84 92 L 12/01/19 15:55 71 16 12/01/19 15:30 72 135/77 12/01/19 14:30 71 136/82 12/01/19 13:30 72 145/69 12/01/19 13:00 69 140/83 12/01/19 12:30 75 150/82 12/01/19 12:29 75 16 12/01/19 12:15 81 162/81 12/01/19 12:00 88 159/88 12/01/19 11:42 97.4 F L 75 16 135/65 98 12/01/19 11:16 61 16 117/61 96 12/01/19 11:00 63 16 125/62 96 12/01/19 10:52 97.4 F L 66 16 140/91 93 L 12/01/19 10:46 59 L 16 119/57 96 12/01/19 10:25 97.4 F L 60 16 122/72 96 Intake and Output 12/01/19 12/02/19 12/02/19 22:59 06:59 14:59 Intake Total 660 460 Output Total 100 130 Balance 560 330 Intake: Intake, IV Titration 160 Amount Lactated Ringers 1,000 ml 160 @ 20 mls/hr IV .Q24H [facility] Rx#:[id number] Oral 660 300 Output: Drainage 100 130 Anterior Abdomen 100 130 Other: Voiding Method Toilet # Voids 2 1 - Constitutional General appearance: no acute distress - EENT Eyes: EOMI - Neck Neck: no lymphadenopathy - Respiratory Respiratory: bilateral: CTA - Cardiovascular Rhythm: regular Heart sounds: normal: S1, S2 Abnormal Heart Sounds: no S3 Gallop - Gastrointestinal General gastrointestinal: soft, no splenomegaly, no tenderness - Integumentary Integumentary: no cellulitis - Neurologic Neurologic: CNII-XII intact, focal deficits Assessment and Plan (1) Abdominal pain Current Visit: No Status: Acute Code(s): R10.9 - UNSPECIFIED ABDOMINAL PAIN SNOMED Code(s): 28904863 (2) Depressed Current Visit: No Status: Acute Code(s): F32.9 - MAJOR DEPRESSIVE DISORDER, SINGLE EPISODE, UNSPECIFIED SNOMED Code(s): 17185338 (3) Hernia of anterior abdominal wall Current Visit: No Status: Acute Code(s): K43.9 - VENTRAL HERNIA WITHOUT OBSTRUCTION OR GANGRENE SNOMED Code(s): 850161748 (4) Morbid obesity due to excess calories Current Visit: No Status: Acute Code(s): E66.01 - MORBID (SEVERE) OBESITY DUE TO EXCESS CALORIES SNOMED Code(s): 641103416 (5) Primary insomnia Current Visit: No Status: Acute Code(s): F51.01 - PRIMARY INSOMNIA SNOMED Code(s): 7243163 Plan: Reconcile medications. We'll continue to follow from medical perspective with pulmonary toilet and GI prophylaxis as necessary. Anticipate discharge in next 24 hours if tolerating diet and cleared by surgery.
[2019-12-02] MEDS ORDERED: FERROUS SULFATE 325 MG TAB PO SCH (09:00)
[2019-12-02] MEDS ORDERED: ESCITALOPRAM 5 MG TAB PO SCH (09:00)
[2019-12-02] MEDS ORDERED: ENOXAPARIN 40 MG/0.4 ML SYRINGE SQ SCH (09:00)
[2019-12-02 11:55] VITALS: BP 135/81; PULSE 66; RESP 17; TEMP 97.7
--- NOTE | 2019-12-02 12:58 | P.DS ---
Providers Expected date of discharge: 12/02/19 Attending physician: Anuj Mckenzie Consults: 12/01/19 10:29 Consult Physician Routine Consulting Provider: Andres Barbosa Consult Reason/Comments: Medical management Do you want consulting provider notified?: Yes Primary care physician: Andres Barbosa Hospital Course: 59-year-old female who underwent repair of incisional hernia on 12/01/2019. Patient is doing well postoperatively with no immediate complications. She was deemed stable for discharge home today per Dr. Mckenzie. Please see EMR for further hospital course details. Discharge diagnosis 1. Incisional hernia Nurse practitioner note has been reviewed by physician. Signing provider agrees with the documented findings, assessment, and plan of care. Patient Condition at Discharge: Stable Plan - Discharge Summary Discharge Rx Participant: Yes New Discharge Prescriptions: New Levofloxacin [Levaquin] 500 mg PO DAILY 7 Days #7 tab Continue Ibuprofen [Motrin] 400 mg PO Q6H PRN PRN Reason: Pain Gabapentin 600 mg PO TID Escitalopram [Lexapro] 5 mg PO DAILY HYDROcodone/APAP 5-325MG [[place] 5-325] 1 tab PO Q4H PRN PRN Reason: Pain Ferrous Sulfate [Iron (65 MG Elemental)] 65 mg PO DAILY Discharge Medication List Ibuprofen [Motrin] 400 mg PO Q6H PRN 12/22/18 [History] Escitalopram [Lexapro] 5 mg PO DAILY 06/07/19 [History] Ferrous Sulfate [Iron (65 MG Elemental)] 65 mg PO DAILY 06/07/19 [History] Gabapentin 600 mg PO TID 06/07/19 [History] HYDROcodone/APAP 5-325MG [[facility] 5-325] 1 tab PO Q4H PRN 06/07/19 [History] Levofloxacin [Levaquin] 500 mg PO DAILY 7 Days #7 tab 12/02/19 [Rx] Follow up Appointment(s)/Referral(s): Anuj Mckenzie MD [STAFF PHYSICIAN] - 1 Week Activity/Diet/Wound Care/Special Instructions: Keep a log of KATIE drain output and bring with you to your follow up appointment No lifting over 10 pounds You may shower. No soaking or tub baths Very light activity until you are reevaluated at your follow up appointment with your surgeon
== END 2019-12-02 15:40 | disposition home or self-care (01) ==
LOC: OR 06:20 → 5NMEDONC 10:25 → OR 12-02 15:40
PROVIDERS: ATTEND Surgery
DX: K43.2 Incisional hernia without obstruction or gangrene (principal); F32.9 Major depressive disorder, single episode, unspecified; M19.90 Unspecified osteoarthritis, unspecified site; M54.5 Low back pain; G89.29 Other chronic pain; E66.01 Morbid (severe) obesity due to excess calories; F51.01 Primary insomnia; Z90.49 Acquired absence of other specified parts of digestive tract; Z87.19 Personal history of other diseases of the digestive system; Z90.710 Acquired absence of both cervix and uterus; Z87.891 Personal history of nicotine dependence; Z79.899 Other long term (current) drug therapy; Z88.5 Allergy status to narcotic agent; Z82.49 Family history of ischemic heart disease and other diseases of the circulatory system; Z83.3 Family history of diabetes mellitus; Z83.79 Family history of other diseases of the digestive system; Z83.6 Family history of other diseases of the respiratory system; Z82.0 Family history of epilepsy and other diseases of the nervous system; Z68.41 Body mass index [BMI] 40.0-44.9, adult
CPT/HCPCS: 64488; 49560; 49568; C1781; J2250; J1644; J1100; J0690; J2405; J1650; J1885 ×2; J1170

== ENCOUNTER 2019-12-31 15:43 | Inpatient (IN) | payer OTHER ==
[2019-12-30 14:25] VITALS: BMI 43.2
--- NOTE | 2019-12-31 11:31 | P.GSHP ---
History of Present Illness H&P Date: 12/31/19 Chief Complaint: Mesh infection Is a 51-year-old female who underwent recent repair of a large incisional hernia. Patient has had increased redness on her incision. She has had a large amount of drainage from the patient presents today for removal mesh Past Medical History Past Medical History: Musculoskeletal Disorder, Osteoarthritis (OA) Additional Past Medical History / Comment(s): diverticulitis resulting in colon resection w/ ileostomy (later reversed), Rt trigger fingers, chronic low back pain, abd. wound infection-drainage tube History of Any Multi-Drug Resistant Organisms: None Reported Past Surgical History: Appendectomy, Bowel Resection, Section, Hernia Repair, Hysterectomy Additional Past Surgical History / Comment(s): colostomy, reversal of colostomy,-surgery- perf. bowel, repair of incisional hernia w/mesh 12-01-19 Past Anesthesia/Blood Transfusion Reactions: No Reported Reaction Smoking Status: Former smoker - Past Family History Mother Family Medical History: Congestive Heart Failure (CHF), Diabetes Mellitus, Seizure Disorder Father Family Medical History: COPD Additional Family Medical History / Comment(s): diverticulitis Medications and Allergies Home Medications Medication Instructions Recorded Confirmed Type Ibuprofen [Motrin] 400 mg PO Q6H PRN 12/22/18 12/30/19 History Gabapentin 600 mg PO TID 06/07/19 12/30/19 History HYDROcodone/APAP 5-325MG [[place] 1 tab PO Q4H PRN 06/07/19 12/30/19 History 5-325] Allergies Allergy/AdvReac Type Severity Reaction Status Date / Time propoxyphene Allergy Itching Verified 12/30/19 14:06 [From [place]] Surgical - Exam - General well developed, well nourished, no distress - Eyes PERRL - ENT normal pinna - Neck no masses - Respiratory normal expansion - Abdomen Midline scar with KATIE drain. Patient has some erythema on the left side of the abdominal wall. Abdomen: soft Assessment and Plan Assessment: Mesh infection after open repair of incisional hernia. Patient undergo debridement of wound and removal of mesh.
[~2019-12-31 15:43] MED LIST changes: +ACETAMINOPHEN TAB 500 MG TAB PO ONE
[2019-12-31] MEDS ORDERED: ONDANSETRON 4 MG/2 ML VIAL IVP ONE (16:33)
[2019-12-31] MEDS ORDERED: LACTATED RINGERS 1,000 ML IV ONE ×2 (16:37→18:20)
[2019-12-31] MEDS ORDERED: PROPOFOL 10 MG/ML 20 ML VIAL IV ONE (17:36)
[2019-12-31] MEDS ORDERED: LIDOCAINE 1% INJ 10MG/ML (20 ML MDV) ONE (17:36)
[2019-12-31] MEDS ORDERED: fentaNYL (PF) 50 MCG/ML 2 ML AMP ONE (17:36)
[2019-12-31] MEDS ORDERED: MIDAZOLAM 2 MG/2 ML VIAL ONE (17:36)
[2019-12-31] MEDS ORDERED: SUCCINYLCHOLINE CHLORIDE 100 MG/5 ML SYR IV ONE (17:36)
[2019-12-31] MEDS ORDERED: NALOXONE 0.4 MG/ML 1 ML VIAL IV PRN (18:20)
[2019-12-31] MEDS ORDERED: ONDANSETRON 4 MG/2 ML VIAL IVP PRN (18:20)
--- NOTE | 2019-12-31 18:20 | P.OP ---
Date of Procedure: 12/31/19 Preoperative Diagnosis: Wound infection Postoperative Diagnosis: Ischemic subcutaneous fat left abdominal wall Procedure(s) Performed: Debridement of abdominal wall Anesthesia: NITHIN Surgeon: Anuj Mckenzie Estimated Blood Loss (ml): 20 Pathology: other (Ischemic fat, wound culture) Condition: stable Disposition: PACU Description of Procedure: The patient's placed on the operative table in supine position. She received general anesthesia. The abdomen was prepped and draped usual fashion. Kvng removed from the abdomen. The patient's left abdominal wall was erythematous with hard subcutaneous fat. The skin was incised midline and then the subcutaneous tissue divided. The mesh was examined. There was full tissue coverage of the mesh. The mesh was not exposed. At this point the left abdominal wall was examined. End appeared to be evidence of ischemic subcutane ous fat. The fat had a webb color to it. The fat was sharply debrided and sent to pathology. The wound cultures performed. A tissue culture results performed. The fat was dissected back to healthy tissue. The wound measured approximately 20 x 25 x 10 cm. The wound VAC was applied. Patient top she will was sent to recovery in stable condition
[2019-12-31] MEDS: GABAPENTIN 300 MG CAP PO SCH (23:46)
[2019-12-31] MEDS: HYDROcodone/APAP 5-325MG 1 EACH TAB PO PRN (23:46)
[2020-01-01] MEDS: HYDROmorphone 0.5 MG/0.5 ML SYRINGE IVP PRN ×3 (02:37→20:34)
[2020-01-01] MEDS: HYDROcodone/APAP 5-325MG 1 EACH TAB PO PRN ×2 (05:50→15:49)
[2020-01-01] MEDS: GABAPENTIN 300 MG CAP PO SCH ×3 (09:06→22:42)
[2020-01-01] MEDS: ENOXAPARIN 40 MG/0.4 ML SYRINGE SQ SCH (09:06)
--- NOTE | 2020-01-01 09:12 | P.CONS ---
History of Present Illness - History of Present Illness Alcohol hospitalist covering Dr. Barbosa over the weekend This is a pleasant 59 years old male with past medical history of S2 arthritis, chronic low back pain. He presents for wound infection of her left abdominal wall, after incisional hernia repair. Presents with increased redness in her incision site with some drainage as per documentation Yesterday she underwent debridement of her wound and found to have ischemic subcutaneous fat , wound culture is obtained. And wound VAC is placed. One dose of cefazolin Vitals stable. Cloud virus nondetected Review of Systems CONSTITUTIONAL: No fever, no malaise, no fatigue. HEENT: No recent visual problems or hearing problems. Denied any sore throat. CARDIOVASCULAR: No orthopnea, PND, no palpitations, no syncope. PULMONARY: No shortness of breath, no cough, no hemoptysis. GASTROINTESTINAL: No diarrhea, no nausea, no vomiting, no abdominal pain. Normoactive bowel sounds. NEUROLOGICAL: No headaches, no weakness, no numbness. HEMATOLOGICAL: Denies any bleeding or petechiae. GENITOURINARY: Denies any burning micturition, frequency, or urgency. MUSCULOSKELETAL/RHEUMATOLOGICAL: Denies any joint pain, swelling, or any muscle pain. ENDOCRINE: Denies any polyuria or polydipsia. Past Medical History Past Medical History: Musculoskeletal Disorder, Osteoarthritis (OA) Additional Past Medical History / Comment(s): diverticulitis resulting in colon resection w/ ileostomy (later reversed), Rt trigger fingers, chronic low back pain, abd. wound infection-drainage tube History of Any Multi-Drug Resistant Organisms: None Reported Past Surgical History: Appendectomy, Bowel Resection, Section, Hernia Repair, Hysterectomy Additional Past Surgical History / Comment(s): colostomy, reversal of colostomy,-surgery- perf. bowel, repair of incisional hernia w/mesh 11-30- Past Anesthesia/Blood Transfusion Reactions: No Reported Reaction Past Psychological History: Depression Additional Psychological History / Comment(s): Takes Lexapro daily Smoking Status: Former smoker Past Alcohol Use History: Occasional Additional Past Alcohol Use History / Comment(s): started smoking at age 21 quit 1979, smoked 1/4 pack a week. quit drinking alcohol Past Drug Use History: Cocaine Additional Drug Use History / Comment(s): Hx crack cocaine for 7 years, none since 2007 - Past Family History Mother Family Medical History: Congestive Heart Failure (CHF), Diabetes Mellitus, Seizure Disorder Father Family Medical History: COPD Additional Family Medical History / Comment(s): diverticulitis Medications and Allergies Home Medications Medication Instructions Recorded Confirmed Type Ibuprofen [Motrin] 400 mg PO Q6H PRN 12/22/18 12/31/19 History Gabapentin 600 mg PO TID 06/07/19 12/31/19 History HYDROcodone/APAP 5-325MG [[place] 1 tab PO Q4H PRN 06/07/19 12/31/19 History 5-325] Allergies Allergy/AdvReac Type Severity Reaction Status Date / Time propoxyphene Allergy Itching Verified 12/31/19 16:29 [From [facility]] Physical Exam Vitals: Vital Signs Temp Pulse Resp BP Pulse Ox 01/01/20 04:40 97.9 F 59 L 19 124/74 95 01/01/20 01:00 68 127/74 93 L 01/01/20 00:00 72 130/78 95 12/31/19 23:00 75 116/71 94 L 12/31/19 22:30 66 117/72 92 L 12/31/19 22:00 68 118/74 92 L 12/31/19 21:45 68 127/74 92 L 12/31/19 20:15 98.7 F 57 L 18 131/79 95 12/31/19 19:32 57 L 16 120/74 96 12/31/19 19:17 57 L 16 113/65 97 12/31/19 19:02 56 L 16 116/67 97 12/31/19 18:47 57 L 16 116/64 97 12/31/19 18:28 97.0 F L 56 L 16 123/84 94 L 12/31/19 16:16 97.6 F 70 16 120/64 97 Intake and Output 12/31/19 01/01/20 01/01/20 22:59 06:59 14:59 Intake Total 800 Output Total 5 Balance 795 Intake: IV 800 Output: Estimated Blood Loss 5 Other: # Voids 1 2 Weight 113.5 kg GENERAL: The patient is alert and oriented x3, not in any acute distress. Well developed, well nourished. HEENT: Pupils are round and equally reacting to light. EOMI. No scleral icterus. No conjunctival pallor. Normocephalic, atraumatic. No pharyngeal erythema. No thyromegaly. CARDIOVASCULAR: S1 and S2 present. No murmurs, rubs, or gallops. PULMONARY: Chest is clear to auscultation, no wheezing or crackles. -ABDOMEN: Soft, nontender, nondistended, normoactive bowel sounds. No palpable organomegaly. Surgical abdominal wound with a dressing in place MUSCULOSKELETAL: No joint swelling or deformity. EXTREMITIES: No cyanosis, clubbing, or pedal edema. NEUROLOGICAL: Gross neurological examination did not reveal any focal deficits. SKIN: No rashes. No petechiae Results Labs: Microbiology - Last 24 Hours (Table) 12/31/19 18:06 Gram Stain - Preliminary Abdomen Tissue Culture - Preliminary 12/31/19 18:06 Gram Stain - Preliminary Abdomen Wound Culture - Preliminary 12/31/19 18:06 Anaerobic Culture - Preliminary Abdomen Assessment and Plan Assessment: Wound infection of abdominal wall, status post debridement. Found to have ischemic subcutaneous fat Chronic low back pain Osteoarthritis Plan: This is a pleasant 59 years old female who presents with wound infection and ischemia of subcutaneous fat, status post debridement. Follow-up wound culture. Infectious disease team was consulted Labs and medication were reviewed.. Continue same treatment. Continue with symptomatic treatment. Resume home medication. Monitor lytes and vitals. DVT and GI prophylaxis. Further recommendations of the clinical course of the patient GI prophylaxis with Pepcid Patient was instructed to follow up with Dr. Barbosa in 1 week after discharge and she agrees Thank you for consulting
[2020-01-01 16:36] LABS: Basophils % (A) 0 %; Eosinophils # (A) 0.7 k/uL (0-0.7); Eosinophils % (A) 7 %; HCT 40.9 % (34.0-46.0); HGB 13.2 gm/dL (11.4-16.0); Hypochromasia Slight; Lymphocytes # (A) 3.7 k/uL (1.0-4.8); Lymphocytes % (A) 36 %; MCH 27.1 pg (25.0-35.0); MCHC 32.1 g/dL (31.0-37.0); MCV 84.2 fL (80.0-100.0); Mean Platelet Volume 7.4; Monocytes # (A) 0.5 k/uL (0-1.0); Monocytes % (A) 5 %; Neutrophils # (A) 5.3 k/uL (1.3-7.7); Neutrophils % (A) 51 %; Platelet Count 371 k/uL (150-450); RBC 4.87 m/uL (3.80-5.40); WBC 10.4 k/uL (3.8-10.6)
[2020-01-01 16:45] LABS: Calcium 8.9 mg/dL (8.4-10.2); Potassium 3.9 mmol/L (3.5-5.1)
[2020-01-01] MEDS: FAMOTIDINE 20 MG TAB PO SCH (20:34)
[2020-01-01] MEDS ORDERED: FAMOTIDINE 20 MG/2 ML VIAL IV SCH (21:00)
--- NOTE | 2020-01-01 22:25 | CONS ---
CONSULTATION DATE OF SERVICE: 01/01/2020 REASON FOR CONSULTATION: Abdominal wound. HISTORY OF PRESENT ILLNESS: The patient is a 59-year-old female who recently underwent repair of large incisional hernia. The patient subsequently presented to the surgeon with increased redness on her incision and large amount of drainage with concern for possible infected mesh. The patient's symptoms of abdominal pain has been going on for a week to a few days before she presented to her surgeon. Pain described to be more of a sharp intensity 7 out of 10 and no radiation. Some nausea but no vomiting and did have some drainage. With these symptoms, the patient was evaluated by the surgeon with concern for possible infected mesh. She was taken to the OR. The patient did have exploration of her wound. She was noted to have any ischemic subcutaneous fat left abdominal wound. The patient is status post debridement of the same. The mesh was noticed to be intact and was left in place a wound culture has been obtained. She has been admitted in the hospital with wound VAC. Infectious Disease was consulted for further local wound care and management of antibiotic. The patient received a dose of cefazolin preoperatively. REVIEW OF SYSTEMS: Positive points have been mentioned in HPI. Rest of systems are negative. PAST MEDICAL HISTORY: Past medical history is significant for osteoarthritis, diverticulitis, perforated colon, no back pain. Abdominal wound infection. PAST SURGICAL HISTORY: Appendectomy, bowel resection, , hernia repair, hysterectomy, colostomy and subsequently reversal colostomy, surgery for perforated bowel. SOCIAL HISTORY: Positive for smoking. Rarely drinks. Did admit to cocaine use. PAST FAMILY HISTORY: Mother history of congestive heart failure, diabetes, chest pain. Father history of any diverticulitis. ALLERGIES: TO PROPOXYPHENE. MEDICATIONS: The patient is currently on [place], Lovenox, Pepcid, Neurontin, Dilaudid, Narcan and Zofran. PHYSICAL EXAMINATION: Blood pressure 122/75 with a pulse of 60 temperature is 97.8. She is 95% on room air. General description: The patient is a middle-aged female lying in bed in no distress. No tachypnea or accessory muscles of respiration use. HEENT: Examination shows no pallor or scleral icterus. Oral mucosa membrane is dry. No pharyngeal erythema or thrush. NECK: Trachea central. No thyromegaly. LUNGS: Unlabored breathing clear to auscultation anteriorly with crackles. HEART S1, S2. Regular rate and rhythm. ABDOMEN: Soft, no significant swelling, redness or induration was noticed. Wound is currently covered with a wound VAC EXTREMITIES: No edema of the feet. SKIN: On examination, no rash or mass palpable. NEUROLOGICAL patient is awake, alert, oriented times three. Mood and affect normal. LABS: Hemoglobin 13.1, white count 10.4, BUN of 18, creatinine 1.01. Cloud PCR was negative. Wound cultures currently pending. DIAGNOSTIC IMPRESSION AND PLAN: Patient admitted to the hospital with erythema from her recent incisional hernia repair and pain with initial concern for possible infected mesh. However, she was noticed to have ischemic fat, status post debridement of the wound and deep cultures. The patient currently no fever or elevated white count. Underlying infection less likely but not entirely excluded. PLAN: 1. We will obtain blood cultures x2. CRP. 2. We will add cefazolin 2 grams q.8 hours. 3. Local wound care with wound VAC and will be re-evaluated at the time of wound VAC change on Friday. 4. Once the wound VAC is arranged for outpatient, the patient will be able to go home and close outpatient followup. All questions and concerns were answered with regard to the wound VAC. MMODL / IJN: [id number] /
--- NOTE | 2020-01-01 23:16 | P.PN ---
Progress Note - Text Progress Note Date: 01/01/20 Patient not in the room. Will re-evaluate another time.
[2020-01-02] MEDS: HYDROmorphone 0.5 MG/0.5 ML SYRINGE IVP PRN ×3 (01:33→20:56)
[2020-01-02] MEDS: ENOXAPARIN 40 MG/0.4 ML SYRINGE SQ SCH (07:49)
[2020-01-02] MEDS: FAMOTIDINE 20 MG TAB PO SCH ×2 (07:50→20:59)
[2020-01-02] MEDS: GABAPENTIN 300 MG CAP PO SCH ×3 (07:50→20:59)
[2020-01-02] MEDS: HYDROcodone/APAP 5-325MG 1 EACH TAB PO PRN ×2 (08:34→15:07)
--- NOTE | 2020-01-02 08:47 | P.PN ---
Subjective Alcohol hospitalist covering Dr. Barbosa over the weekend This is a pleasant 59 years old male with past medical history of S2 arthritis, chronic low back pain. He presents for wound infection of her left abdominal wall, after incisional hernia repair. Presents with increased redness in her incision site with some drainage as per documentation Yesterday she underwent debridement of her wound and found to have ischemic subcutaneous fat , wound culture is obtained. And wound VAC is placed. One dose of cefazolin Vitals stable. Cloud virus nondetected 01/02/2020 Patient is lying in bed comfortable, she is fully awake and oriented, she wants to eat however she did not have bowel movement and only passing gases and was asking for laxative to help her from straining as it causes her pain in her low abdominal wound. Patient has open midabdominal vertical wound with wound VAC in place and quite bit of serosanguineous discharge. Vitals are stable and patient is afebrile. She is currently on cefazolin and Ringer lactate at 100 mL per hour. Infectious disease was consulted Tomorrow Dr. Barbosa will resume the care of the patient Objective - Vital Signs Vital signs: Vital Signs Temp 97.6 F 01/02/20 04:49 Pulse 52 L 01/02/20 04:49 Resp 18 01/02/20 04:49 BP 113/68 01/02/20 04:49 Pulse Ox 95 01/02/20 04:49 Intake & Output 01/01/20 01/02/20 01/02/20 18:59 06:59 18:59 Intake Total 100 Balance 100 Intake: Intake, IV Titration 100 Amount Lactated Ringers 1,000 ml 100 @ 100 mls/hr IV .Q10H ONE Rx#:[id number] Other: # Voids 1 1 - Exam GENERAL: The patient is alert and oriented x3, not in any acute distress. Well developed, well nourished. HEENT: Pupils are round and equally reacting to light. EOMI. No scleral icterus. No conjunctival pallor. Normocephalic, atraumatic. No pharyngeal erythema. No thyromegaly. CARDIOVASCULAR: S1 and S2 present. No murmurs, rubs, or gallops. PULMONARY: Chest is clear to auscultation, no wheezing or crackles. -ABDOMEN: Soft, nontender, nondistended, normoactive bowel sounds. No palpable organomegaly. Surgical abdominal wound with a dressing in place MUSCULOSKELETAL: No joint swelling or deformity. EXTREMITIES: No cyanosis, clubbing, or pedal edema. NEUROLOGICAL: Gross neurological examination did not reveal any focal deficits. SKIN: No rashes. No petechiae - Labs CBC & Chem 7: 01/01/20 16:04 01/01/20 16:04 Labs: Abnormal Lab Results - Last 24 Hours (Table) 01/01/20 Range/Units 16:04 BUN 18 H (7-17) mg/dL C-Reactive Protein 40.0 H (<10.0) mg/L Microbiology - Last 24 Hours (Table) 12/31/19 18:06 Gram Stain - Preliminary Abdomen Wound Culture - Preliminary Assessment and Plan Assessment: Wound infection of abdominal wall, status post debridement. Found to have ischemic subcutaneous fat Chronic low back pain Osteoarthritis Plan: This is a pleasant 59 years old female who presents with wound infection and ischemia of subcutaneous fat, status post debridement. Follow-up wound culture. Infectious disease team was consulted . At [facility]. Continue with antibiotics as per ID team, continue with hydration. Labs and medication were reviewed.. Continue same treatment. Continue with sy mptomatic treatment. Resume home medication. Monitor lytes and vitals. DVT and GI prophylaxis. Further recommendations of the clinical course of the patient DVT prophylaxis: Lovenox GI prophylaxis with Pepcid Patient was instructed to follow up with Dr. Barbosa in 1 week after discharge and she agrees Thank you for consulting
--- NOTE | 2020-01-02 10:19 | P.PN ---
Subjective Progress Note Date: 01/02/20 CHIEF COMPLAINT: Abdominal wall infection HISTORY OF PRESENT ILLNESS: The patient is a 59-year-old female status debridment of abdominal wall 12/31/2019. She is postop day 2. Pain is controlled. She is concerned about severe constipation. She reports poor sleep. ROS: No reports of nausea and vomiting. No fevers or chills. No new chest pain. PHYSICAL EXAM: VITAL SIGNS: Reviewed CONSTITUTIONAL: Well developed and in no acute distress. EYES: Conjuctivae without sclera icterus. Extraocular movements grossly intact. HEAD, EARS, NOSE, THROAT: Moist buccal mucosa. Head is atraumatic, normocep halic. Hears conversational speech. No nasal drainage. NECK: Supple. RESPIRATORY: Non-labored respirations and equal bilateral excursions. On mechanical ventilation. CARDIOVASCULAR: Palpable 2+ radial pulses. ABDOMEN: Dressing intact with wound vac. MUSCULOSKELETAL: No gross deformity of the lower extremities noted. No clubbing. No cyanosis. SKIN: Good skin turgor. Well perfused. NEUROLOGIC: Cranial nerves II through XII grossly intact. No focal or lateralizing signs. PSYCH: Appropriate affect. Alert and oriented to person, place and time. CLINICAL LABS: White blood cell count normal 10,400 from yesterday ASSESSMENT: 1. Abdominal wall cellulitis. PLAN: 1. Start Colace, Miralax, and MOM for constipation 2. Wound vac for complicated wound 3. Home health care referral Objective - Vital Signs Vital signs: Vital Signs Temp 97.6 F 01/02/20 04:49 Pulse 52 L 01/02/20 04:49 Resp 18 01/02/20 04:49 BP 113/68 01/02/20 04:49 Pulse Ox 95 01/02/20 04:49 Intake & Output 01/01/20 01/02/20 01/02/20 18:59 06:59 18:59 Intake Total 100 Balance 100 Intake: Intake, IV Titration 100 Amount Lactated Ringers 1,000 ml 100 @ 100 mls/hr IV .Q10H ONE Rx#:[id number] Other: # Voids 1 1 - Labs CBC & Chem 7: 01/01/20 16:04 01/01/20 16:04 Labs: Abnormal Lab Results - Last 24 Hours (Table) 01/01/20 Range/Units 16:04 BUN 18 H (7-17) mg/dL C-Reactive Protein 40.0 H (<10.0) mg/L Microbiology - Last 24 Hours (Table) 12/31/19 18:06 Gram Stain - Preliminary Abdomen Wound Culture - Preliminary Assessment and Plan (1) Abdominal wall abscess Current Visit: Yes Status: Acute Code(s): L02.211 - CUTANEOUS ABSCESS OF ABDOMINAL WALL SNOMED Code(s): 43119025 (2) Constipation Current Visit: Yes Status: Acute Code(s): K59.00 - CONSTIPATION, UNSPECIFIED SNOMED Code(s): 00745659 (3) BMI 40.0-44.9, adult Current Visit: Yes Status: Acute Code(s): Z68.41 - BODY MASS INDEX (BMI) 40.0-44.9, ADULT SNOMED Code(s): 870053165 (4) Morbid obesity due to excess calories Current Visit: No Status: Acute Code(s): E66.01 - MORBID (SEVERE) OBESITY DUE TO EXCESS CALORIES SNOMED Code(s): 922553570
[2020-01-02] MEDS: POLYETHYLENE GLYCOL 3350 17 GM POWD.PACK PO SCH (11:11)
[2020-01-02] MEDS: DOCUSATE 100 MG CAP PO SCH ×2 (11:11→20:59)
[2020-01-02] MEDS: MAGNESIUM HYDROXIDE 2,400 MG/10 ML CUP PO SCH ×2 (11:11→20:59)
[2020-01-02] MEDS: AMPICILLIN-SULBACTAM 3 GM in SODIUM CHLORIDE 0.9% 100 ML IVPB SCH (23:05)
--- NOTE | 2020-01-03 03:21 | PN ---
PROGRESS NOTE DATE OF SERVICE: 01/02/2020 REASON FOR FOLLOWUP: Abdominal wound. INTERVAL HISTORY: The patient is currently afebrile. The patient is breathing comfortably. Patient denies having any chest pain or shortness of breath or cough. No abdominal pain or diarrhea. PHYSICAL EXAMINATION: On examination, her blood pressure is 134/66, pulse of 63, temperature 98. She is 96% on room air. General description is a middle-aged female lying in bed in no distress. RESPIRATORY SYSTEM: Unlabored breathing, clear to auscultation anteriorly. HEART: S1, S2. Regular rate and rhythm. ABDOMEN: Soft. Wound VAC was removed. Wound base looking clean. EXTREMITIES: No edema of the feet. LABS: Wound culture showing group D Enterococcus. DIAGNOSTIC IMPRESSION AND PLAN: Patient with abdominal wound in this patient who did have fat necrosis, status post extensive debridement. Cultures with Enterococcus. Antibiotic adjusted to Unasyn. Local care with wound VAC that has to be adjusted. Continue with supportive care. MMODL / IJN: [id number] /
[2020-01-03] MEDS: AMPICILLIN-SULBACTAM 3 GM in SODIUM CHLORIDE 0.9% 100 ML IVPB SCH ×4 (05:56→23:57)
[2020-01-03] MEDS: HYDROmorphone 0.5 MG/0.5 ML SYRINGE IVP PRN ×2 (05:56→18:41)
[2020-01-03 07:19] LABS: Basophils % (A) 0 %; Eosinophils # (A) 1.3 k/uL (0-0.7); Eosinophils % (A) 14 %; HCT 40.4 % (34.0-46.0); HGB 12.9 gm/dL (11.4-16.0); Hypochromasia Slight; Lymphocytes # (A) 3.4 k/uL (1.0-4.8); Lymphocytes % (A) 37 %; MCH 26.9 pg (25.0-35.0); MCHC 31.8 g/dL (31.0-37.0); MCV 84.4 fL (80.0-100.0); Mean Platelet Volume 7.4; Monocytes # (A) 0.5 k/uL (0-1.0); Monocytes % (A) 5 %; Neutrophils # (A) 4.1 k/uL (1.3-7.7); Neutrophils % (A) 43 %; Platelet Count 371 k/uL (150-450); RBC 4.79 m/uL (3.80-5.40); RDW 14.1 % (11.5-15.5); WBC 9.4 k/uL (3.8-10.6)
[2020-01-03 07:22] LABS: African American GFR (CKD) >90 (>60 ml/min/1.73 sqM); Anion Gap 5 mmol/L; Blood Urea Nitrogen 15 mg/dL (7-17); C Reactive Protein 46.2 mg/L (<10.0); Calcium 8.8 mg/dL (8.4-10.2); Carbon Dioxide 32 mmol/L (22-30); Chloride 101 mmol/L (98-107); Glucose 90 mg/dL (74-99); Non-African American GFR(CKD) 84 (>60 ml/min/1.73 sqM); Potassium 4.6 mmol/L (3.5-5.1); Sodium 138 mmol/L (137-145)
[2020-01-03] MEDS: POLYETHYLENE GLYCOL 3350 17 GM POWD.PACK PO SCH (08:07)
[2020-01-03] MEDS: FAMOTIDINE 20 MG TAB PO SCH ×2 (08:08→19:45)
[2020-01-03] MEDS: MAGNESIUM HYDROXIDE 2,400 MG/10 ML CUP PO SCH ×2 (08:08→19:46)
[2020-01-03] MEDS: ENOXAPARIN 40 MG/0.4 ML SYRINGE SQ SCH (08:08)
[2020-01-03] MEDS: DOCUSATE 100 MG CAP PO SCH ×2 (08:09→19:45)
[2020-01-03] MEDS: GABAPENTIN 300 MG CAP PO SCH ×3 (08:09→22:42)
[2020-01-03] MEDS ORDERED: ZOLPIDEM 5 MG TAB PO PRN (08:17)
--- NOTE | 2020-01-03 08:17 | P.PN ---
Subjective Progress Note Date: 01/03/20 Principal diagnosis: infected mesh repair. This is a continue progress on 51-year-old white female with known history of previous abdominal surgery and now infected mesh and revision. The patient is now stabilizing. She states she feels much better and has significant insomnia. Objective - Vital Signs Vital signs: Vital Signs Temp 97.8 F 01/03/20 04:28 Pulse 60 01/03/20 04:28 Resp 16 01/03/20 04:28 BP 144/79 01/03/20 04:28 Pulse Ox 96 01/03/20 04:28 Intake & Output 01/02/20 01/03/20 01/03/20 18:59 06:59 18:59 Output Total 700 Balance -700 Output: Drainage 700 Anterior Abdomen 700 Other: # Voids 2 2 - Constitutional General appearance: Present: no acute distress - EENT Eyes: Absent: abnormal pupil - Neck Neck: Absent: lymphadenopathy - Respiratory Respiratory: bilateral: CTA - Cardiovascular Rhythm: regular Heart sounds: normal: S1, S2 Abnormal Heart Sounds: Absent: S3 Gallop - Gastrointestinal General gastrointestinal: Present: soft. Absent: tenderness - Integumentary Integumentary: Present: normal. Absent: rash - Psychiatric Psychiatric: Present: A&O x's 3. Absent: appropriate affect - Labs CBC & Chem 7: 01/03/20 06:19 01/03/20 06:19 Labs: Abnormal Lab Results - Last 24 Hours (Table) 01/03/20 01/03/20 Range/Units 06:19 06:19 Eosinophils # 1.3 H (0-0.7) k/uL Carbon Dioxide 32 H (22-30) mmol/L C-Reactive Protein 46.2 H (<10.0) mg/L Microbiology - Last 24 Hours (Table) 12/31/19 18:06 Gram Stain - Final Abdomen Wound Culture - Final 12/31/19 18:06 Anaerobic Culture - Preliminary Abdomen 12/31/19 18:06 Gram Stain - Preliminary Abdomen Tissue Culture - Preliminary Group D Enterococcus 01/01/20 16:04 Blood Culture - Preliminary Blood No Growth after 24 hours Assessment and Plan (1) Abdominal wall abscess Current Visit: Yes Status: Acute Code(s): L02.211 - CUTANEOUS ABSCESS OF ABD OMINAL WALL SNOMED Code(s): 06250563 (2) Abdominal pain Current Visit: No Status: Acute Code(s): R10.9 - UNSPECIFIED ABDOMINAL PAIN SNOMED Code(s): 68194691 (3) Depressed Current Visit: No Status: Acute Code(s): F32.9 - MAJOR DEPRESSIVE DISORDER, SINGLE EPISODE, UNSPECIFIED SNOMED Code(s): 12196328 (4) Hernia of anterior abdominal wall Current Visit: No Status: Acute Code(s): K43.9 - VENTRAL HERNIA WITHOUT OBSTRUCTION OR GANGRENE SNOMED Code(s): 682933314 (5) Morbid obesity due to excess calories Current Visit: No Status: Acute Code(s): E66.01 - MORBID (SEVERE) OBESITY DUE TO EXCESS CALORIES SNOMED Code(s): 185622787 (6) Primary insomnia Current Visit: No Status: Acute Code(s): F51.01 - PRIMARY INSOMNIA SNOMED Code(s): 3265814 Plan: we will give Ambien as necessary if the patient continues to state that seconda ry to IV antibiotic therapy. We will continue to follow. DC when cleared by surgery. Clinically the patient has significant improvement. See orders otherwise Time with Patient: Greater than 30
[2020-01-03] MEDS: HYDROcodone/APAP 5-325MG 1 EACH TAB PO PRN (10:33)
--- NOTE | 2020-01-03 11:59 | P.PN ---
Subjective Progress Note Date: 01/03/20 CHIEF COMPLAINT: Abdominal wound infection HISTORY OF PRESENT ILLNESS: Patient is status post debridement of abdominal wall. Examined at the bedside with Dr. Mckenzie. Patient denies abdominal pain. Wound VAC is intact. PHYSICAL EXAM: VITAL SIGNS: Reviewed. GENERAL: Well-developed in no acute distress. HEENT: No sclera icterus. Extraocular movements grossly intact. Moist buccal mucosa. Head is atraumatic, normocephalic. ABDOMEN: Soft. Nondistended. Nontender. Wound VAC intact NEUROLOGIC: Alert and oriented. Cranial nerves II through XII grossly intact. ASSESSMENT: 1. Abdominal wound infection, status post debridement of abdominal wall PLAN: -Continue wound vac -Continue antibiotics per Dr. Vance. Await final cultures -Anticipate discharge home tomorrow with wound vac when cultures are finalized Nurse practitioner note has been reviewed by physician. Signing provider agrees with the documented findings, assessment, and plan of care. Objective - Vital Signs Vital signs: Vital Signs Temp 97.8 F 01/03/20 04:28 Pulse 64 01/03/20 11:17 Resp 18 01/03/20 11:17 BP 115/72 01/03/20 11:17 Pulse Ox 97 01/03/20 11:17 Intake & Output 01/02/20 01/03/20 01/03/20 18:59 06:59 18:59 Output Total 700 Balance -700 Output: Drainage 700 Anterior Abdomen 700 Other: # Voids 2 2 - Labs CBC & Chem 7: 01/03/20 06:19 01/03/20 06:19 Labs: Abnormal Lab Results - Last 24 Hours (Table) 01/03/20 01/03/20 Range/Units 06:19 06:19 Eosinophils # 1.3 H (0-0.7) k/uL Carbon Dioxide 32 H (22-30) mmol/L C-Reactive Protein 46.2 H (<10.0) mg/L Microbiology - Last 24 Hours (Table) 12/31/19 18:06 Gram Stain - Final Abdomen Wound Culture - Final 12/31/19 18:06 Anaerobic Culture - Preliminary Abdomen 12/31/19 18:06 Gram Stain - Preliminary Abdomen Tissue Culture - Preliminary Group D Enterococcus 01/01/20 16:04 Blood Culture - Preliminary Blood No Growth after 24 hours
--- NOTE | 2020-01-03 12:48 | CDI ---
Documentation Clarification Form Date: 01/03/2020 12:37:39 PM From: Mireya TurnerASH barton, CCDS Admit Date: 01/02/2020 11:58:00 AM Patient Name: Olena Lopez Visit Number: [id number] Discharge Date: ATTENTION: The Clinical Documentation Specialists (CDI) and [facility] Coding Staff appreciate your assistance in clarifying documentation. Please respond to the clarification below the line at the bottom and electronically sign. The CDI & [facility] Coding staff will review the response and follow-up if needed. Please note: Queries are made part of the Legal Health Record. If you have any questions, please contact the author of this message via ITS. Dr. Anuj Mckenzie: Per your progress notes/operative note, a debridement was performed on 12/30. The type of debridement is not clearly documented. History/Risk Factors: Diverticulitis resulting in colon resection w/ileostomy & reversal, Chronic low back pain, Osteoarthritis. Clinical Indicators: Per the 01/01 General Surgery History & Physical, the patient underwent a recent repair of a large incisional hernia, now has increased redness on incision & large amount of drainage, presented for removal of mesh. Procedure 12/30: Debridement of abdominal wall. Procedure Diagnosis: Ischemic subcutaneous fat left abdominal wall Treatment: Heparin sq, IV Zofran, IV Dilaudid, IV Cefazolin In order to capture the severity of condition and code the appropriate procedure; could you please document the following: Excisional debridement (the removal of necrotic, devitalized tissue or slough by means of cutting away of tissue) Non-excisional debridement (the removal of necrotic, devitalized tissue or slough by means of flushing, brushing, or washing. (Irrigation) Other; please specify Unable to determine (Last Revision: November 2017) Excisional debridement MTDD
--- NOTE | 2020-01-03 15:11 | PN ---
PROGRESS NOTE DATE OF SERVICE: 01/03/2020 REASON FOR FOLLOWUP: Abdominal wound. INTERVAL HISTORY: The patient is currently afebrile, patient is breathing comfortably. Pain is currently controlled. No chest pain or shortness of breath or cough. PHYSICAL EXAMINATION: Blood pressure 115/72 with a pulse of 64, temperature 96.8. She is 97% on room air. General description is a middle-aged female, lying in bed in no distress. RESPIRATORY SYSTEM: Unlabored breathing, clear to auscultation anteriorly. HEART: S1, S2. Regular rate and rhythm. ABDOMEN: Soft, wound is covered with a Wound VAC. LABS: Hemoglobin is 12.9, white count 9.4. Wound culture with Enterococcus. Sensitivities pending. DIAGNOSTIC IMPRESSION AND PLAN: Patient with abdominal wound with necrosis, status post extensive debridement with large wound culture showing group D Enterococcus. Will wait for sensitivity. Continue with Unasyn. Local wound care with wound VAC. Hopefully finish therapy with oral antibiotics . MMODL / IJN: [id number] /
[2020-01-04] MEDS: HYDROmorphone 0.5 MG/0.5 ML SYRINGE IVP PRN ×2 (00:50→13:55)
[2020-01-04] MEDS: AMPICILLIN-SULBACTAM 3 GM in SODIUM CHLORIDE 0.9% 100 ML IVPB SCH ×2 (05:30→12:18)
[2020-01-04] MEDS: HYDROcodone/APAP 5-325MG 1 EACH TAB PO PRN (05:36)
[2020-01-04] MEDS: FAMOTIDINE 20 MG TAB PO SCH (07:56)
[2020-01-04] MEDS: ENOXAPARIN 40 MG/0.4 ML SYRINGE SQ SCH (07:57)
[2020-01-04] MEDS: MAGNESIUM HYDROXIDE 2,400 MG/10 ML CUP PO SCH (07:57)
[2020-01-04] MEDS: POLYETHYLENE GLYCOL 3350 17 GM POWD.PACK PO SCH (07:57)
[2020-01-04] MEDS: DOCUSATE 100 MG CAP PO SCH (07:57)
[2020-01-04] MEDS: GABAPENTIN 300 MG CAP PO SCH (07:57)
--- NOTE | 2020-01-04 11:14 | P.DS ---
Providers Date of admission: 01/02/20 11:58 Expected date of discharge: 01/04/20 Attending physician: Anuj Mckenzie Consults: 12/31/19 18:20 Consult Physician Routine Consulting Provider: Andres Barbosa Consult Reason/Comments: Medical management Do you want consulting provider notified?: Yes Consult Physician Routine Consulting Provider: Mallika Vance Consult Reason/Comments: Wound VAC Do you want consulting provider notified?: Yes Primary care physician: Stated None Hospital Course: 59-year-old female who is status post debridement of abdominal wall. Patient had a wound VAC applied to her abdomen postoperatively. She was evaluated by infectious disease. Cultures are positive for Enterococcus faecalis. Augmentin was recommended at the time of discharge. Pain is controlled on oral medications. Vital signs are stable. She is stable for discharge home today per Dr. Mckenzie. Please see EMR for further hospital course details. Discharge Diagnosis: 1. Abdominal wound infection, status post debridement of abdominal wall Nurse practitioner note has been reviewed by physician. Signing provider agrees with the documented findings, assessment, and plan of care. Patient Condition at Discharge: Stable Plan - Discharge Summary Discharge Rx Participant: Yes New Discharge Prescriptions: New Amoxic-Pot Clav 875-125Mg [Augmentin 875-125] 1 tab PO BID 14 Days #28 tab Continue Ibuprofen [Motrin] 400 mg PO Q6H PRN PRN Reason: Pain Gabapentin 600 mg PO TID HYDROcodone/APAP 5-325MG [[place] 5-325] 1 tab PO Q4H PRN PRN Reason: Pain Discharge Medication List Ibuprofen [Motrin] 400 mg PO Q6H PRN 12/22/18 [History] Gabapentin 600 mg PO TID 06/07/19 [History] HYDROcodone/APAP 5-325MG [[place] 5-325] 1 tab PO Q4H PRN 06/07/19 [History] Amoxic-Pot Clav 875-125Mg [Augmentin 875-125] 1 tab PO BID 14 Days #28 tab 01/04/20 [Rx] Follow up Appointment(s)/Referral(s): Andres Barbosa MD [STAFF PHYSICIAN] - 1 Week [facility], [NON-STAFF] - Anuj Mckenzie MD [STAFF PHYSICIAN] - 1 Week Activity/Diet/Wound Care/Special Instructions: [facility] - wound vac - please call [phone] with any concerns about wound vac Local wound care with a wound VAC continuous pressure 1 25 mmHg, change in Friday Follow-up with Dr. vance in the wound center 1 week, call [phone] to make an appointment
[2020-01-04 11:38] VITALS: BP 132/68; PULSE 60; RESP 18; TEMP 97.8
--- NOTE | 2020-01-04 14:37 | PN ---
PROGRESS NOTE DATE OF SERVICE: 01/04/2020 REASON FOR FOLLOWUP: Abdominal wound with an infection. INTERVAL HISTORY: The patient is currently afebrile, patient is breathing comfortably. Patient denies having any chest pain, no shortness of breath. No nausea, no vomiting. No abdominal pain or any diarrhea. PHYSICAL EXAMINATION: On examination, her blood pressure is 132/68 with a pulse of 60, temperature is 97.8, she is 99% on room air. General description is a middle-aged female lying in bed in no distress. RESPIRATORY SYSTEM: Unlabored breathing, clear to auscultation anteriorly. HEART: S1, S2. Regular rate and rhythm. ABDOMEN: Soft, wound is currently covered with a wound VAC. Some surrounding redness. LABS: No new labs have been obtained today. Wound culture with Enterococcus faecalis. Blood cultures have been negative. DIAGNOSTIC IMPRESSION AND PLAN: Patient with abdominal wound with incarcerated and status post resection. Culture positive for enterococcus, finish therapy with oral Augmentin. Local care with wound VAC. Follow up in the Wound Center next week. Questions and concerns were answered. MMODL / IJN: [id number] /
== END 2020-01-04 14:53 | disposition home health service (06) | DRG 902 ==
LOC: OR 15:43 → 5NMEDONC 18:32 → OR 01-02 11:58
PROVIDERS: ADMIT Surgery; ATTEND Surgery
PROC: 0JB80ZZ Excision of Abdomen Subcutaneous Tissue and Fascia, Open Approach (ICD-10-PCS; principal; 2019-12-31 08:30)
DX: T85.79XA Infection and inflammatory reaction due to other internal prosthetic devices, implants and grafts, initial encounter (principal); L03.311 Cellulitis of abdominal wall; Z68.41 Body mass index [BMI] 40.0-44.9, adult; B95.2 Enterococcus as the cause of diseases classified elsewhere; E66.01 Morbid (severe) obesity due to excess calories; F32.9 Major depressive disorder, single episode, unspecified; F51.01 Primary insomnia; G89.29 Other chronic pain; K59.00 Constipation, unspecified; M19.90 Unspecified osteoarthritis, unspecified site; M54.5 Low back pain; K57.90 Diverticulosis of intestine, part unspecified, without perforation or abscess without bleeding; Z11.59 Encounter for screening for other viral diseases; Z79.899 Other long term (current) drug therapy; Z87.891 Personal history of nicotine dependence; Z90.710 Acquired absence of both cervix and uterus; Z90.49 Acquired absence of other specified parts of digestive tract; Z88.5 Allergy status to narcotic agent; Z82.0 Family history of epilepsy and other diseases of the nervous system; Z82.49 Family history of ischemic heart disease and other diseases of the circulatory system; Z82.5 Family history of asthma and other chronic lower respiratory diseases; Z83.3 Family history of diabetes mellitus; Y83.2 Surgical operation with anastomosis, bypass or graft as the cause of abnormal reaction of the patient, or of later complication, without mention of misadventure at the time of the procedure
CPT/HCPCS: 80048; 83605; 84145; 85025; 86140; 87040; 87070; 87075; 87077; 87186; 87205; 87635; 88304

== ENCOUNTER → 2020-01-21 | Outpatient (CLI) | payer OTHER ==
[2020-01-21 15:37] LABS: Basophils # (A) 0.1 k/uL (0-0.2); Basophils % (A) 0 %; Eosinophils # (A) 0.4 k/uL (0-0.7); Eosinophils % (A) 3 %; HCT 40.6 % (34.0-46.0); HGB 12.6 gm/dL (11.4-16.0); Lymphocytes # (A) 4.4 k/uL (1.0-4.8); Lymphocytes % (A) 30 %; MCH 25.4 pg (25.0-35.0); MCHC 30.9 g/dL (31.0-37.0); MCV 82.2 fL (80.0-100.0); Mean Platelet Volume 7.5; Monocytes # (A) 0.7 k/uL (0-1.0); Monocytes % (A) 5 %; Neutrophils % (A) 61 %; Platelet Count 482 k/uL (150-450); RBC 4.94 m/uL (3.80-5.40); RDW 13.7 % (11.5-15.5); WBC 14.6 k/uL (3.8-10.6)
== END | disposition home or self-care (01) ==
LOC: LABWHC1 14:25
PROVIDERS: ATTEND Thoracic Surgery (Cardiothoracic Vascular Surgery)
DX: K20.9 Esophagitis, unspecified (principal); F33.1 Major depressive disorder, recurrent, moderate; L03.311 Cellulitis of abdominal wall; F11.20 Opioid dependence, uncomplicated; Z87.19 Personal history of other diseases of the digestive system; T81.32XA Disruption of internal operation (surgical) wound, not elsewhere classified, initial encounter
CPT/HCPCS: 36415; 84134; 85025

== ENCOUNTER → 2020-08-25 | Outpatient (CLI) | payer OTHER ==
--- NOTE | 2020-08-25 13:22 | CT ---
EXAMINATION TYPE: CT abdomen pelvis w con DATE OF EXAM: 08/25/2020 HISTORY: Incisional hernia and diverticulitis per order. CT DLP: 2805mGycm Automated Exposure Control for Dose Reduction was Utilized. CONTRAST: CT scan of the abdomen and pelvis is performed with oral and with IV Contrast, patient injected with 100 mL of Isovue 300. COMPARISON: CT abdomen and pelvis April 06, 2019 FINDINGS: LUNG BASES: No significant abnormality is appreciated. LIVER/GB: No significant abnormality is appreciated. PANCREAS: Mild to moderate generalized atrophy in the pancreatic head redemonstrated. SPLEEN: No significant abnormality is seen. ADRENALS: No significant abnormality is seen. KIDNEYS: Symmetric cortical medullary uptake and excretion without concerning renal mass or hydroneph rosis seen bilaterally. Urinary bladder unremarkable. BOWEL: Oral contrast reaches level of the mid transverse colon. No suspicious small or large bowel di latation. Some diverticula on the left and sigmoid colon. No CT evidence for acute diverticulitis. Ashford rgical sutures sigmoid rectal colon are redemonstrated. Sutures involving distal small bowel loop in the anterior pelvis less well seen due to contrast opacification at this level. UTERUS/ADNEXA: Uterus surgically absent. LYMPH NODES: No greater than 1cm abdominal or pelvic lymph nodes are appreciated. OSSEOUS STRUCTURES: No significant abnormality is seen. OTHER: Interval removal of overlying vertical skin shahram. There is more prominent irregular low den se tissue from the umbilicus skin surface to the posterior rectus sheath measuring approximately 13.2 x 6.7 cm coronal image 22. Hounsfield units average around 30. No thick walled drainable fluid colle ction. No recurrent ventral wall hernia. Overlying curvilinear device or mesh material redemonstrated axial image 66 IMPRESSION: More prominent anterior abdominal wall irregular low density area favoring fluid from the umbilicus extending inferiorly. Differential includes postsurgical seroma there has been interval ashford rgery. Acute infectious process needs to be considered such as organizing phlegmon. Other etiologies not excluded. Colonic diverticulosis without acute diverticulitis.
== END | disposition home or self-care (01) ==
LOC: RADCTMAIN 12:05
PROVIDERS: ATTEND Surgery
DX: K57.30 Diverticulosis of large intestine without perforation or abscess without bleeding (principal); R93.5 Abnormal findings on diagnostic imaging of other abdominal regions, including retroperitoneum
CPT/HCPCS: 74177; Q9967

== ENCOUNTER 2020-10-18 09:27 | Observation (INO) | payer OTHER ==
[2020-10-13 09:59] VITALS: BMI 44.6
[~2020-10-18 09:27] MED LIST changes: -ACETAMINOPHEN TAB 500 MG TAB PO ONE; +ACETAMINOPHEN TAB 500 MG TAB PO PRN; +DEXAMETHASONE SOD PHOSPHATE 4 MG/ML 1 ML VIAL IV ONE; -HEPARIN SODIUM,PORCINE 5,000 UNIT/ML 1 ML VIAL SQ ONE; +HEPARIN SODIUM,PORCINE 5,000 UNIT/ML 1 ML VIAL SQ PRN; +HYDROmorphone 0.5 MG/0.5 ML SYRINGE IVP PRN; +LACTATED RINGERS 1,000 ML IV SCH; +LIDOCAINE 1% (10MG/ML) FOR IV START INTRADERMA PRN; +ONDANSETRON 4 MG/2 ML VIAL IVP ONE; +SCOPOLAMINE 1.5MG/72HR PATCH TRANSDERM ONE
[2020-10-18] MEDS ORDERED: fentaNYL (PF) 50 MCG/ML 2 ML AMP IV ONE (11:57)
[2020-10-18] MEDS ORDERED: MIDAZOLAM 2 MG/2 ML VIAL IV ONE (11:57)
--- NOTE | 2020-10-18 12:39 | P.ANPRN ---
Procedure Note - Anesthesia - Nerve Block Performed Bilateral Erector Spinae Single Time Out Performed: Yes Date of Procedure: 10/18/20 Procedure Start Time: 12:10 Procedure Stop Time: 12:23 Location of Patient: PreOp Indication: Acute Post-Operative Pain, Requested by Surgeon Specifically requested for management of pain by DrMarc: Anuj Mckenzie Sedation Type: Sedate with meaningful contact maintained Preparation: Sterile Prep Position: Prone Catheter: None Needle Types: TI[employer] Needle Gauge: 21 Ultrasound used to visualize needle placement: Yes Ultrasound used to observe medication spread: Yes Injectate: 0.5% Ropivacaine (see comment for volume) Blood Aspirated: No Pain Paresthesia on Injection Noted: No Resistance on Injection: Normal Image Stored and Saved: Yes Events: Uneventful and Well Tolerated (60cc 0.25% Ropivacaine)
[2020-10-18] MEDS ORDERED: MIDAZOLAM 2 MG/2 ML VIAL IVP ONE (13:19)
[2020-10-18] MEDS ORDERED: GLYCOPYRROLATE 0.2 MG/ML 2 ML VIAL ONE (13:42)
[2020-10-18] MEDS ORDERED: fentaNYL (PF) 50 MCG/ML 2 ML AMP ONE (13:42)
[2020-10-18] MEDS ORDERED: ePHEDrine SULFATE/0.9% NACL/PF 50 MG/5 ML SYRINGE IV ONE (13:42)
[2020-10-18] MEDS ORDERED: MIDAZOLAM 2 MG/2 ML VIAL ONE (13:42)
[2020-10-18] MEDS ORDERED: SODIUM CHLORIDE 0.9% (PF) 10 ML VIAL ONE (13:42)
[2020-10-18] MEDS ORDERED: HYDROmorphone (PF) 1 MG/ML ONE (13:42)
[2020-10-18] MEDS ORDERED: ROCURONIUM 10 MG/ML (5 ML VIAL) IV ONE (13:42)
[2020-10-18] MEDS ORDERED: PROPOFOL 10 MG/ML 20 ML VIAL IV ONE (13:42)
[2020-10-18] MEDS ORDERED: ROPIVACAINE 5 MG/ML 30 ML VIAL ONE (13:42)
[2020-10-18] MEDS ORDERED: LIDOCAINE 1% INJ 10MG/ML (20 ML MDV) ONE (13:42)
[2020-10-18] MEDS ORDERED: NEOSTIGMINE 1 MG/ML 10 ML VIAL ONE (13:42)
[2020-10-18] MEDS ORDERED: SUCCINYLCHOLINE CHLORIDE 100 MG/5 ML SYR IV ONE (13:42)
[2020-10-18] MEDS ORDERED: LACTATED RINGERS 1,000 ML IV ONE ×2 (15:22→16:07)
--- NOTE | 2020-10-18 16:04 | P.GSHP ---
History of Present Illness H&P Date: 10/18/20 Chief Complaint: Panniculus This a 60-year-old female who has a well-formed panniculus. Patient presents today for panniculectomy. She has had trouble with chronic skin irritation. Past Medical History Past Medical History: Musculoskeletal Disorder, Osteoarthritis (OA) Additional Past Medical History / Comment(s): diverticulitis resulting in colon resection w/ ileostomy (later reversed), Rt trigger fingers, chronic low back pain, abd. wound infection-drainage tube-RESOLVED History of Any Multi-Drug Resistant Organisms: None Reported Past Surgical History: Appendectomy, Bowel Resection, Section, Hernia Repair, Hysterectomy Additional Past Surgical History / Comment(s): colostomy, reversal of colostomy,-surgery- perf. bowel, repair of incisional hernia w/mesh 12-01-19, COLONOSCOPY/EGD Past Anesthesia/Blood Transfusion Reactions: No Reported Reaction Smoking Status: Former smoker - Past Family History Mother Family Medical History: Congestive Heart Failure (CHF), Diabetes Mellitus, Seizure Disorder Father Family Medical History: COPD Additional Family Medical History / Comment(s): diverticulitis Medications and Allergies Home Medications Medication Instructions Recorded Confirmed Type Ibuprofen [Motrin] 400 mg PO Q6H PRN 12/22/18 10/13/20 History Gabapentin 600 mg PO TID 06/07/19 10/18/20 History HYDROcodone/APAP 5-325MG [[place] 1 tab PO Q4H PRN 06/07/19 10/18/20 History 5-325] FLUoxetine HCL 40 mg PO DAILY 10/13/20 10/18/20 History Allergies Allergy/AdvReac Type Severity Reaction Status Date / Time propoxyphene Allergy Itching Verified 10/18/20 11:15 [From Dusty] Surgical - Exam Vital Signs Temp Pulse Resp BP Pulse Ox 97.9 F 54 L 16 143/78 96 10/18/20 11:17 10/18/20 11:17 10/18/20 11:17 10/18/20 11:17 10/18/20 11:17 - General well developed, well nourished, no distress - Eyes PERRL - ENT normal pinna - Neck no masses - Respiratory normal expansion - Cardiovascular Rhythm: regular - Abdomen Well-formed panniculus Abdomen: soft, non tender Assessment and Plan Assessment: Because. We'll perform panniculectomy
[2020-10-18] MEDS ORDERED: NALOXONE 0.4 MG/ML 1 ML VIAL IV PRN (16:07)
[2020-10-18] MEDS ORDERED: HYDROmorphone 0.5 MG/0.5 ML SYRINGE IVP PRN (16:07)
[2020-10-18] MEDS ORDERED: ONDANSETRON 4 MG/2 ML VIAL IVP PRN (16:07)
--- NOTE | 2020-10-18 16:07 | P.OP ---
Date of Procedure: 10/18/20 Preoperative Diagnosis: Panniculus Postoperative Diagnosis: Panniculus Incisional hernia Procedure(s) Performed: Panniculectomy Repair of incisional hernia Removal of mesh Anesthesia: NITHIN Surgeon: Anuj Mckenzie Estimated Blood Loss (ml): 100 Pathology: other (Panniculus) Condition: stable Disposition: PACU Description of Procedure: Patient's placed on the operating table in the supine position. She received general anesthesia. Her abdomen was prepped and draped usual sterile fashion. Patient well-formed panniculus. The skin incision sites were marked and then the skin was incised in the suprapubic area extending from hip to hip. Which cautery was then used to dissect through the tissues. The fascia extremity was exposed. The dissection then went cephalad along the fascia to the level of the costal margin and xiphoid. There was some free-floating mesh which was removed and sent to pathology. There was a small incisional hernia seen this repaired with 0 Ethibond suture. The skin was then marked. And the redundant skin was then excised by dividing the skin with a 15 blade and electrocautery. Hemostasis was achieved with cautery. KATIE drains placed through separate stab incisions at the pubic area and brought out through the skin. Brenda's fascia with 0 Vicryl. Skin was closed interrupted 0 Monocryl suture. Dermabond was applied. Patient top she will was sent to recovery room stable condition.
[2020-10-18] MEDS: KETOROLAC 15 MG/ML 1 ML VIAL IVP SCH ×2 (17:06→23:03)
[2020-10-18] MEDS: HYDROcodone/APAP 5-325MG 1 EACH TAB PO PRN (23:04)
[2020-10-19] MEDS: KETOROLAC 15 MG/ML 1 ML VIAL IVP SCH ×4 (05:29→23:00)
[2020-10-19] MEDS: FLUoxetine HCL 20 MG CAP PO SCH (07:27)
[2020-10-19] MEDS: ENOXAPARIN 40 MG/0.4 ML SYRINGE SQ SCH (07:27)
[2020-10-19] MEDS: HYDROcodone/APAP 5-325MG 1 EACH TAB PO PRN ×2 (07:39→20:45)
[2020-10-19] MEDS: GABAPENTIN 300 MG CAP PO SCH ×3 (07:39→20:41)
--- NOTE | 2020-10-19 08:37 | P.CONS ---
History of Present Illness - Reason for Consult Consult date: 10/19/20 - Chief Complaint Abdominal pain - History of Present Illness This is a consultation on a 60-year-old female essentially here for repair of incisional hernia. The patient is now seen postop day 1 doing quite well. She does have significant discomfort but seems controlled this time. History of depression which is stabilizing. No overt voiding difficulties. Review of Systems Constitutional: Denies chills, Denies fever Eyes: denies blurred vision, denies pain Ears, nose, mouth and throat: Denies headache, Denies sore throat Cardiovascular: Denies chest pain, Denies shortness of breath Gastrointestinal: Reports as per HPI Genitourinary: Denies dysuria, Denies hematuria Past Medical History Past Medical History: Musculoskeletal Disorder, Osteoarthritis (OA) Additional Past Medical History / Comment(s): diverticulitis resulting in colon resection w/ ileostomy (later reversed), Rt trigger fingers, chronic low back pain, abd. wound infection-drainage tube-RESOLVED History of Any Multi-Drug Resistant Organisms: None Reported Past Surgical History: Appendectomy, Bowel Resection, Section, Hernia Repair, Hysterectomy Additional Past Surgical History / Comment(s): colostomy, reversal of colostomy,-surgery- perf. bowel, repair of incisional hernia w/mesh 11-30-, COLONOSCOPY/EGD Past Anesthesia/Blood Transfusion Reactions: No Reported Reaction Past Psychological History: Depression Additional Psychological History / Comment(s): Takes Lexapro daily Smoking Status: Former smoker Past Alcohol Use History: None Reported Additional Past Alcohol Use History / Comment(s): started smoking at age 21 quit 1979, smoked 1/4 pack a week. quit drinking alcohol Past Drug Use History: None Reported, Cocaine Additional Drug Use History / Comment(s): Hx crack cocaine for 7 years, none since 2007 - Past Family History Mother Family Medical History: Congestive Heart Failure (CHF), Diabetes Mellitus, Seizure Disorder Father Family Medical History: COPD Additional Family Medical History / Comment(s): diverticulitis Medications and Allergies Home Medications Medication Instructions Recorded Confirmed Type Ibuprofen [Motrin] 400 mg PO Q6H PRN 12/22/18 10/13/20 History Gabapentin 600 mg PO TID 06/07/19 10/18/20 History HYDROcodone/APAP 5-325MG [[place] 1 tab PO Q4H PRN 06/07/19 10/18/20 History 5-325] FLUoxetine HCL 40 mg PO DAILY 10/13/20 10/18/20 History Allergies Allergy/AdvReac Type Severity Reaction Status Date / Time propoxyphene Allergy Itching Verified 10/18/20 11:15 [From Dusty] Physical Exam Vitals: Vital Signs Temp Pulse Resp BP BP Pulse Ox 10/19/20 08:00 97.6 F 55 L 16 112/74 99 10/19/20 02:10 97.7 F 61 16 99/61 97 10/18/20 19:03 98 F 62 16 116/77 96 10/18/20 17:55 97.7 F 65 16 121/79 95 10/18/20 17:29 62 16 132/66 95 10/18/20 17:14 59 L 17 129/62 94 L 10/18/20 16:59 64 16 132/63 95 10/18/20 16:44 63 16 133/68 96 10/18/20 16:29 62 16 132/63 96 10/18/20 16:14 64 16 112/70 96 10/18/20 15:59 88 16 131/90 95 10/18/20 11:56 57 L 18 132/76 98 10/18/20 11:44 57 L 16 115/56 97 10/18/20 11:17 97.9 F 54 L 16 143/78 96 Intake and Output 10/18/20 10/19/20 10/19/20 22:59 06:59 14:59 Intake Total 1150 296 Output Total 200 850 Balance 950 -850 296 Intake: IV 850 Oral 300 296 Output: Drainage 100 Left Abdomen 50 Right Abdomen 50 Urine 200 750 Other: Voiding Method Indwelling Catheter Indwelling Catheter Weight 115.4 kg - Constitutional General appearance: obese - EENT Eyes: EOMI - Neck Neck: no lymphadenopathy - Respiratory Respiratory: bilateral: diminished - Cardiovascular Rhythm: regular Heart sounds: normal: S1, S2 Abnormal Heart Sounds: no S3 Gallop - Gastrointestinal General gastrointestinal: soft, no tenderness - Integumentary Integumentary: no cellulitis - Psychiatric Psychiatric: A&O x's 3 Assessment and Plan (1) Abdominal pannus Current Visit: Yes Status: Acute Code(s): E65 - LOCALIZED ADIPOSITY SNOMED Code(s): 2476254701801 (2) Rash and other nonspecific skin eruption Current Visit: Yes Status: Acute Code(s): R21 - RASH AND OTHER NONSPECIFIC SKIN ERUPTION SNOMED Code(s): 170286233 (3) Depressive disorder Current Visit: No Status: Acute Code(s): F32.9 - MAJOR DEPRESSIVE DISORDER, SINGLE EPISODE, UNSPECIFIED SNOMED Code(s): 13798099 (4) Hernia of anterior abdominal wall Current Visit: No Status: Acute Code(s): K43.9 - VENTRAL HERNIA WITHOUT OBSTRUCTION OR GANGRENE SNOMED Code(s): 375237926 (5) Primary insomnia Current Visit: No Status: Acute Code(s): F51.01 - PRIMARY INSOMNIA SNOMED Code(s): 0048832 Plan: Reconcile medications. Pain control per surgery. Check CBC and CMP in a.m. She orders otherwise. Time with Patient: Greater than 30
[2020-10-19 09:43] LABS: African American GFR (CKD) 81 (>60 ml/min/1.73 sqM); Anion Gap 4 mmol/L; Carbon Dioxide 33 mmol/L (22-30); Chloride 102 mmol/L (98-107); Glucose 107 mg/dL (74-99); Non-African American GFR(CKD) 71 (>60 ml/min/1.73 sqM); Sodium 139 mmol/L (137-145)
[2020-10-19 09:45] LABS: Blood Urea Nitrogen 15 mg/dL (7-17); Calcium 8.9 mg/dL (8.4-10.2)
[2020-10-19 09:50] LABS: Basophils % (A) 0 %; Eosinophils # (A) 0.3 k/uL (0-0.7); Eosinophils % (A) 2 %; HGB 12.5 gm/dL (11.4-16.0); Lymphocytes # (A) 2.7 k/uL (1.0-4.8); Lymphocytes % (A) 22 %; MCH 26.1 pg (25.0-35.0); MCHC 31.9 g/dL (31.0-37.0); MCV 81.6 fL (80.0-100.0); Mean Platelet Volume 7.9; Monocytes # (A) 0.5 k/uL (0-1.0); Monocytes % (A) 4 %; Neutrophils # (A) 8.6 k/uL (1.3-7.7); Neutrophils % (A) 71 %; Platelet Count 318 k/uL (150-450); RBC 4.78 m/uL (3.80-5.40); RDW 14.9 % (11.5-15.5); WBC 12.2 k/uL (3.8-10.6)
--- NOTE | 2020-10-19 13:57 | P.PN ---
Subjective Progress Note Date: 10/19/20 CHIEF COMPLAINT: Panniculus and incisional hernia HISTORY OF PRESENT ILLNESS: Patient is status post panniculectomy, repair of incisional hernia and removal of mesh. She is postop day #1. She reports that her pain is controlled with pain medication. She denies any nausea or vomiting. She is passing gas denies any bowel movements. She is lying in bed comfortably. She currently has Mason catheter in place. She's afebrile. WBC 12.2 white count may be elevated due to steroids, Hgb 12.5 , creatinine 0.90 PHYSICAL EXAM: VITAL SIGNS: Reviewed. GENERAL: Well-developed in no acute distress. HEENT: No sclera icterus. Extraocular movements grossly intact. Moist buccal mucosa. Head is atraumatic, normocephalic. ABDOMEN: Soft. Nondistended. Incision site clean dry and intact. KATIE drains sanguinous fluid. NEUROLOGIC: Alert and oriented. Cranial nerves II through XII grossly intact. ASSESSMENT: 1. Panniculus and Incisional hernia status post panniculectomy, repair of incisional hernia and removal of mesh PLAN: -Discontinue Mason catheter -Encouraged patient to use incentive spirometer -Encouraged patient to ambulate -Continue with pain control -Anticipate discharge possibly tomorrow Physician Cloth Mercerizing Supervisor note has been reviewed by physician. Signing provider agrees with the documented findings, assessment, and plan of care. Objective - Vital Signs Vital signs: Vital Signs Temp 97.6 F 10/19/20 08:00 Pulse 55 L 10/19/20 08:00 Resp 16 10/19/20 08:00 BP 112/74 10/19/20 08:00 Pulse Ox 99 10/19/20 08:00 Intake & Output 10/18/20 10/19/20 10/19/20 18:59 06:59 18:59 Intake Total 1900 300 296 Output Total 300 850 Balance 1600 -550 296 Weight 115.4 kg 115.4 kg Intake: IV 1900 Oral 300 296 Output: Drainage 100 Left Abdomen 50 Right Abdomen 50 Urine 200 750 Estimated Blood Loss 100 Other: Voiding Method Indwelling Catheter Indwelling Catheter - Labs CBC & Chem 7: 10/19/20 09:05 10/19/20 09:05 Labs: Abnormal Lab Results - Last 24 Hours (Table) 10/19/20 10/19/20 Range/Units 09:05 09:05 WBC 12.2 H (3.8-10.6) k/uL Neutrophils # 8.6 H (1.3-7.7) k/uL Carbon Dioxide 33 H (22-30) mmol/L Glucose 107 H (74-99) mg/dL
[2020-10-20] MEDS: KETOROLAC 15 MG/ML 1 ML VIAL IVP SCH (05:24)
[2020-10-20 07:01] LABS: ALT 9 U/L (4-34); AST 17 U/L (14-36); African American GFR (CKD) 64 (>60 ml/min/1.73 sqM); Albumin 3.4 g/dL (3.5-5.0); Albumin/Globulin Ratio 1.3; Alkaline Phosphatase 69 U/L (38-126); Anion Gap 3 mmol/L; Blood Urea Nitrogen 24 mg/dL (7-17); Calcium 8.7 mg/dL (8.4-10.2); Carbon Dioxide 32 mmol/L (22-30); Chloride 105 mmol/L (98-107); Globulin 2.6 g/dL; Glucose 98 mg/dL (74-99); Non-African American GFR(CKD) 55 (>60 ml/min/1.73 sqM); Potassium 5.4 mmol/L (3.5-5.1); Sodium 140 mmol/L (137-145); Total Bilirubin 0.3 mg/dL (0.2-1.3)
[2020-10-20] MEDS: GABAPENTIN 300 MG CAP PO SCH (07:07)
[2020-10-20] MEDS: ENOXAPARIN 40 MG/0.4 ML SYRINGE SQ SCH (07:07)
[2020-10-20] MEDS: FLUoxetine HCL 20 MG CAP PO SCH (07:07)
[2020-10-20 07:39] VITALS: RESP 16
--- NOTE | 2020-10-20 08:41 | P.PN ---
Subjective Principal diagnosis: Incisional hernia repair. The patient is essentially postop day #2 for incisional hernia repair. The patient is doing quite well with appropriate pain control. Objective - Vital Signs Vital signs: Vital Signs Temp 97.6 F 10/20/20 07:39 Pulse 49 L 10/20/20 07:39 Resp 16 10/20/20 07:39 BP 99/58 10/20/20 07:39 Pulse Ox 95 10/20/20 07:39 Intake & Output 10/19/20 10/20/20 10/20/20 18:59 06:59 18:59 Intake Total 768 200 296 Output Total 500 100 Balance 268 100 296 Intake: Oral 768 200 296 Output: Drainage 200 100 Left Abdomen 100 40 Right Abdomen 100 60 Urine 300 Uretheral (Mason) 300 Other: Voiding Method Toilet # Voids 1 2 # Bowel Movements 1 - Constitutional General appearance: Present: obese - EENT Eyes: Absent: abnormal pupil - Neck Neck: Present: lymphadenopathy - Respiratory Respiratory: bilateral: CTA - Cardiovascular Rhythm: regular Heart sounds: normal: S1, S2 Abnormal Heart Sounds: Absent: S3 Gallop - Gastrointestinal General gastrointestinal: Present: tenderness - Neurologic Neurologic: Present: CNII-XII intact - Labs CBC & Chem 7: 10/19/20 09:05 10/20/20 06:18 Labs: Abnormal Lab Results - Last 24 Hours (Table) 10/19/20 10/19/20 10/20/20 Range/Units 09:05 09:05 06:18 WBC 12.2 H (3.8-10.6) k/uL Neutrophils # 8.6 H (1.3-7.7) k/uL Potassium 5.4 H (3.5-5.1) mmol/L Carbon Dioxide 33 H 32 H (22-30) mmol/L BUN 24 H (7-17) mg/dL Creatinine 1.10 H (0.52-1.04) mg/dL Glucose 107 H (74-99) mg/dL Total Protein 6.0 L (6.3-8.2) g/dL Albumin 3.4 L (3.5-5.0) g/dL Assessment and Plan (1) Abdominal pannus Current Visit: Yes Status: Acute Code(s): E65 - LOCALIZED ADIPOSITY SNOMED Code(s): 8890211465314 (2) Rash and other nonspecific skin eruption Current Visit: Yes Status: Acute Code(s): R21 - RASH AND OTHER NONSPECIFIC SKIN ERUPTION SNOMED Code(s): 147026170 (3) Depressive disorder Current Visit: No Status: Acute Code(s): F32.9 - MAJOR DEPRESSIVE DISORDER, SINGLE EPISODE, UNSPECIFIED SNOMED Code(s): 92785922 (4) Hernia of anterior abdominal wall Current Visit: No Status: Acute Code(s): K43.9 - VENTRAL HERNIA WITHOUT OBSTRUCTION OR GANGRENE SNOMED Code(s): 971629488 (5) Primary insomnia Current Visit: No Status: Acute Code(s): F51.01 - PRIMARY INSOMNIA SNOMED Code(s): 9348795 Plan: Reconcile medications. Pain control per surgery. Anticipate discharge today.
[2020-10-20 08:55] LABS: HCT 41.2 % (37.2-46.3); HGB 12.3 g/dL (12.0-15.0); MCH 25.7 pg (27.0-32.0); MCHC 29.9 g/dL (32.0-37.0); Mean Platelet Volume 11.4 fL (9.5-12.2); Platelet Count 317 X 10*3/uL (140-440); RBC 4.79 X 10*6/uL (4.10-5.20); RDW 15.6 % (11.5-14.5); WBC 10.45 X 10*3/uL (4.50-10.00)
[2020-10-20] MEDS: HYDROcodone/APAP 5-325MG 1 EACH TAB PO PRN (10:12)
[2020-10-20 14:15] VITALS: BP 113/66; PULSE 57; TEMP 98.5
--- NOTE | 2020-10-20 15:33 | P.DS ---
Providers Date of admission: 10/19/20 14:05 Expected date of discharge: 10/20/20 Attending physician: Anuj Mckenzie Consults: 10/18/20 16:07 Consult Physician Routine Consulting Provider: Andres Barbosa Consult Reason/Comments: Medical management Do you want consulting provider notified?: Yes Primary care physician: Andres Barbosa Hospital Course: Discharge diagnosis 1. Panniculus and Incisional hernia status post panniculectomy, repair of incisional hernia and removal of mesh Hospital course This a 60-year-old female who has a well-formed panniculus. She has had trouble with chronic skin irritation. Patient is status post panniculectomy, repair of incisional hernia and removal of mesh. patient tolerated surgery well. Pain is controlled. She is tolerating diet. She is having bowel movements. She is ambulating.She is afebrile. She is stable for discharge. Physician Washroom Attendant note has been reviewed by physician. Signing provider agrees with the documented findings, assessment, and plan of care. Patient Condition at Discharge: Stable Plan - Discharge Summary Discharge Rx Participant: Yes New Discharge Prescriptions: Continue Ibuprofen [Motrin] 400 mg PO Q6H PRN PRN Reason: Pain Gabapentin 600 mg PO TID HYDROcodone/APAP 5-325MG [[place] 5-325] 1 tab PO Q4H PRN PRN Reason: Pain FLUoxetine HCL 40 mg PO DAILY Discharge Medication List Ibuprofen [Motrin] 400 mg PO Q6H PRN 12/22/18 [History] Gabapentin 600 mg PO TID 06/07/19 [History] HYDROcodone/APAP 5-325MG [[place] 5-325] 1 tab PO Q4H PRN 06/07/19 [History] FLUoxetine HCL 40 mg PO DAILY 10/13/20 [History] Follow up Appointment(s)/Referral(s): [facility], [NON-STAFF] - Anuj Mckenzie MD [STAFF PHYSICIAN] - 1 Week Activity/Diet/Wound Care/Special Instructions: No driving while taking [place] No lifting over 10 pounds You may shower. No soaking or tub baths for 2 weeks Very light activity until you are reevaluated at your follow up appointment with your surgeon Keep a log of KATIE drain output and bring with you to your follow-up appointment Milk/strip drains 2-3 times a day Discharge Disposition: HOME SELF-CARE
[2020-10-20] MEDS ORDERED: IBUPROFEN 400 MG TAB PO PRN (18:00)
== END 2020-10-20 16:32 | disposition home or self-care (01) ==
LOC: OR 09:27 → 4SSUR 15:59 → OR 10-19 14:05 → 4SSUR 10-19 14:05
PROVIDERS: ADMIT Surgery; ATTEND Surgery
DX: K43.2 Incisional hernia without obstruction or gangrene (principal); E65 Localized adiposity; F32.9 Major depressive disorder, single episode, unspecified; Z83.3 Family history of diabetes mellitus; F51.01 Primary insomnia; Z82.49 Family history of ischemic heart disease and other diseases of the circulatory system; Z87.891 Personal history of nicotine dependence; Z82.0 Family history of epilepsy and other diseases of the nervous system; Z82.5 Family history of asthma and other chronic lower respiratory diseases; Z90.710 Acquired absence of both cervix and uterus; Z79.899 Other long term (current) drug therapy
CPT/HCPCS: 94760; 64461; 76942; 88305; 80053; 80048; 85025; 85027; 17999; 49565; G0378 ×2; J2250; J1644; J1100; J2710; J0690; J2405; J2001; J1650 ×2; J3010; J1170; J2795; J1885 ×3; J0330; J2704

== ENCOUNTER → 2020-12-05 | Outpatient (CLI) | payer OTHER | END | disposition home or self-care (01) | LOC: LABWHC1 15:31 | PROVIDERS: ATTEND Family Medicine | DX: Z20.822 Contact with and (suspected) exposure to COVID-19 (principal) | CPT/HCPCS: U0003; C9803 ==

== ENCOUNTER 2024-05-27 08:21 | Emergency (ER) | payer OTHER ==
[2024-05-27] MEDS: HYDROcodone/APAP 7.5-325MG 1 EACH TAB PO ONE (08:46)
--- NOTE | 2024-05-27 08:51 | ED ---
Lower Extremity Injury HPI - General Chief Complaint: Extremity Injury, Lower Stated Complaint: L Leg Pain Time Seen by Provider: 05/27/24 08:31 Source: patient, family, RN notes reviewed Mode of arrival: ambulatory Limitations: no limitations - History of Present Illness Initial Comments: 63-year-old female presents emergency room complaining left knee pain. She did have an injury a few days ago states that she injured her knee in the something. Patient states that she is concerned about possible blood clot she states there is some swelling to her left knee and hurts to palpate around her left knee. Denies any history of DVT or PE denies any chest pain or increasing shortness of breath no other associated symptoms. - Related Data Home Medications Medication Instructions Recorded Confirmed Ibuprofen [Motrin] 400 mg PO Q6H PRN 12/22/18 10/13/20 Gabapentin 600 mg PO TID 06/07/19 10/18/20 HYDROcodone/APAP 5-325MG [Emmett 1 tab PO Q4H PRN 06/07/19 10/18/20 5-325] FLUoxetine HCL 40 mg PO DAILY 10/13/20 10/18/20 Allergies Allergy/AdvReac Type Severity Reaction Status Date / Time propoxyphene Allergy Itching Verified 10/18/20 11:15 [From Dusty] Review of Systems ROS Statement: Those systems with pertinent positive or pertinent negative responses have been documented in the HPI. ROS Other: All systems not noted in ROS Statement are negative. Past Medical History Past Medical History: Musculoskeletal Disorder, Neurologic Disorder, Osteoarthritis (OA) Additional Past Medical History / Comment(s): diverticulitis resulting in colon resection w/ ileostomy (later reversed), Rt trigger fingers, chronic low back pain, abd. wound infection-drainage tube-RESOLVED, Restless Leg Syndrome, chronic pain History of Any Multi-Drug Resistant Organisms: None Reported Past Surgical History: Appendectomy, Bowel Resection, Section, Hernia Repair, Hysterectomy Additional Past Surgical History / Comment(s): colostomy, reversal of colostomy,-surgery- perf. bowel, repair of incisional hernia w/mesh 12-01-19, COLONOSCOPY/EGD Past Anesthesia/Blood Transfusion Reactions: No Reported Reaction Past Psychological History: Depression Smoking Status: Former smoker Past Alcohol Use History: None Reported Past Drug Use History: None Reported, Cocaine - Past Family History Mother Family Medical History: Congestive Heart Failure (CHF), Diabetes Mellitus, Seizure Disorder Father Family Medical History: COPD Additional Family Medical History / Comment(s): diverticulitis General Exam Limitations: no limitations General appearance: alert, in no apparent distress Neck exam: Present: normal inspection, full ROM. Absent: tenderness, meningismus, lymphadenopathy Respiratory exam: Present: normal lung sounds bilaterally. Absent: respiratory distress, wheezes, rales, rhonchi, stridor Cardiovascular Exam: Present: regular rate, normal rhythm, normal heart sounds. Absent: systolic murmur, diastolic murmur, rubs, gallop, clicks Extremities exam: Present: other (Left knee there is mild tenderness across the anterior aspect, minimal swelling neurovascular intact no significant calf tenderness erythema pulses are equal bilaterally) Course Vital Signs 05/27/24 05/27/24 05/27/24 08:23 10:46 11:23 Temperature 97.3 F L 98 F 98 F Pulse Rate 54 L 61 62 Respiratory 22 18 18 Rate Blood Pressure 105/68 120/80 121/77 O2 Sat by Pulse 98 99 98 Oximetry Medical Decision Making - Medical Decision Making Was pt. sent in by a medical professional or institution (, PA, CURB SETTER HELPER, urgent care, hospital, or half-way...) When possible be specific @ -No Did you speak to anyone other than the patient for history (EMS, parent, family, police, friend...)? What history was obtained from this source @ -No Did you review nursing and triage notes (agree or disagree)? Why? @ -I reviewed and agree with nursing and triage notes Were old charts reviewed (outside hosp., previous admission, EMS record, old EKG, old radiological studies, urgent care reports/EKG's, half-way records)? Report findings @ -No old charts were reviewed Differential Diagnosis (chest pain, altered mental status, abdominal pain women, abdominal pain men, vaginal bleeding, weakness, fever, dyspnea, syncope, headache, dizziness, GI bleed, back pain, seizure, CVA, palpatations, mental health, musculoskeletal)? @ -DVT, knee contusion, osteoarthritis, gout, leg fracture EKG interpreted by me (3pts min.). @ -None X-rays interpreted by me (1pt min.). @ -X-ray left knee showing significant osteoarthritis CT interpreted by me (1pt min.). @ -None done U/S interpreted by me (1pt. min.). @ -Ultrasound left leg venous Doppler negative for acute DVT What testing was considered but not performed or refused? (CT, X-rays, U/S, labs)? Why? @ -None What meds were considered but not given or refused? Why? @ -None Did you discuss the management of the patient with other professionals (professionals i.e. , PA, CURB SETTER HELPER, lab, RT, psych nurse, social economist, experience specialist, teacher, business enterprise officer, employment case manager)? Give summary @ -No Was smoking cessation discussed for >3mins.? @ -No Was critical care preformed (if so, how long)? @ -No Were there social determinants of health that impacted care today? How? (Homelessness, low income, unemployed, alcoholism, drug addiction, transportation, low edu. Level, literacy, decrease access to med. care, fpc, rehab)? @ -No Was there de-escalation of care discussed even if they declined (Discuss DNR or withdrawal of care, Hospice)? DNR status @ -No What co-morbidities impacted this encounter? (DM, HTN, Smoking, COPD, CAD, Cancer, CVA, ARF, Chemo, Hep., AIDS, mental health diagnosis, sleep apnea, morbid obesity)? @ -None Was patient admitted / discharged? Hospital course, mention meds given and route, prescriptions, significant lab abnormalities, going to OR and other pertinent info. @ -Discharge patient presented for left knee pain patient does have osteoarthritis small joint effusion will follow-up with orthopedics as needed otherwise discharged in stable condition with supportive treatment. Undiagnosed new problem with uncertain prognosis? @ -No Drug Therapy requiring intensive monitoring for toxicity (Heparin, Nitro, Insulin, Cardizem)? @ -No Were any procedures done? @ -No Diagnosis/symptom? @ -Left knee pain Acute, or Chronic, or Acute on Chronic? @ -Acute Uncomplicated (without systemic symptoms) or Complicated (systemic symptoms)? @ -Uncomplicated Side effects of treatment? @ -No Exacerbation, Progression, or Severe Exacerbation? @ -No Poses a threat to life or bodily function? How? (Chest pain, [place], CA, pneumonia, PE, COPD, DKA, ARF, appy, cholecystitis, CVA, Diverticulitis, Homicidal, Suicidal, threat to staff... and all critical care pts) @ -No Disposition Clinical Impression: Left knee pain Disposition: HOME SELF-CARE Condition: Stable Instructions (If sedation given, give patient instructions): Knee Pain (ED) Additional Instructions: Please return to the Emergency Department if symptoms worsen or any other concerns. Is patient prescribed a controlled substance at d/c from ED?: No Referrals: Andres Barbosa MD [Primary Care Provider] - 1-2 days Time of Disposition: 11:02
--- NOTE | 2024-05-27 09:38 | US ---
EXAMINATION TYPE: US venous doppler duplex LE LT DATE OF EXAM: 05/27/2024 8:40 AM COMPARISON: NONE CLINICAL INDICATION: Female, 63 years old with history of Left leg pain TECHNIQUE: The lower extremity deep venous system is examined utilizing real time linear array sonog jeremías with graded compression, color doppler sonography, and spectral doppler. SIDE PERFORMED: Left FINDINGS: VESSELS IMAGED: Common Femoral Vein Deep Femoral Vein Greater Saphenous Vein * Femoral Vein Popliteal Vein Small Saphenous Vein * Proximal Calf Veins (* superficial vessels) Left Leg: Appears negative for DVT Grayscale, color doppler, spectral doppler imaging performed of the deep veins of the lower extremiti es. IMPRESSION: No evidence for DVT within the left lower extremity imaged from the groin to the upper calf. [facility], , 05/27/2024 9:36 AM
--- NOTE | 2024-05-27 10:03 | XR ---
EXAMINATION TYPE: XR knee complete LT DATE OF EXAM: 05/27/2024 COMPARISON: None HISTORY: 63-year-old female with pain TECHNIQUE: 3 views FINDINGS: Extensor mechanism appears intact. Mild tricompartmental degenerative spurring is noted. No acute fra cture, subluxation, dislocation. IMPRESSION: Mild tricompartmental degenerative spurring. No acute osseous abnormality seen. [facility], , 05/27/2024 10:00 AM
[2024-05-27 10:48] VITALS: RESP 18; TEMP 98
[2024-05-27] MEDS: ACET/COD 300 MG/30 MG STARTER PACK 6 TAB BTL PO STA (11:07)
[2024-05-27 11:25] VITALS: BP 121/77; PULSE 62
== END 2024-05-27 11:25 | disposition home or self-care (01) ==
LOC: EC 08:21
CPT/HCPCS: 99284

== ENCOUNTER → 2024-09-07 | Outpatient (CLI) | payer OTHER | LOC: NEUROMAIN 06:42 | PROVIDERS: ATTEND Psychiatry & Neurology Neurology | DX: G43.909 Migraine, unspecified, not intractable, without status migrainosus (principal); R41.3 Other amnesia; R42 Dizziness and giddiness; Z88.6 Allergy status to analgesic agent; Z87.891 Personal history of nicotine dependence | CPT/HCPCS: 95812 ==